=== PATIENT | female | born 1960 | race Caucasian/White ===

== ENCOUNTER 2020-12-15 13:22 | Emergency (ER) | payer OTHER ==
--- NOTE | 2020-12-15 14:50 | XR ---
EXAMINATION TYPE: XR chest 2V DATE OF EXAM: 12/15/2020 COMPARISON: NONE HISTORY: History of COPD with shortness of breath and cough TECHNIQUE: Frontal and lateral views of the chest are obtained. FINDINGS: Right internal jugular Mediport catheter terminates in proximal SVC. There is no focal air space opacity, pleural effusion, or pneumothorax seen. The cardiac silhouette size is within normal limits. Underlying scoliotic curvature. IMPRESSION: No acute cardiopulmonary process.
[2020-12-15] MEDS ORDERED: ACETAMINOPHEN TAB 500 MG TAB PO STA (15:16)
[2020-12-15 15:52] LABS: Appearance,Urine Turbid (Clear); Bacteria,Urine Many /hpf; Bilirubin,Urine Negative (Negative); Blood,Urine Negative (Negative); Budding Yeast,Urine Moderate /hpf; Color,Urine Yellow; Glucose,Urine (UA) Negative (Negative); Ketones,Urine Trace (Negative); Leukocyte Esterase,Urine Moderate (Negative); Mucus,Urine Rare /hpf; Nitrite,Urine Negative (Negative); PH, Urine 7.5 (5.0-8.0); Protein,Urine 1+ (Negative); RBC,Urine 2 /hpf (0-5); Specific Gravity,Urine 1.012 (1.001-1.035); Squamous Epithelial Cell,Urine 2 /hpf (0-4); WBC,Urine 34 /hpf (0-5)
[2020-12-15] MEDS ORDERED: SODIUM CHLORIDE 0.9% 1,000 ML IV STA ×2 (15:58→18:50)
[2020-12-15 16:19] LABS: Anisocytosis Slight; HCT 27.1 % (34.0-46.0); HGB 9.2 gm/dL (11.4-16.0); MCH 34.8 pg (25.0-35.0); MCHC 33.9 g/dL (31.0-37.0); MCV 102.6 fL (80.0-100.0); Macrocytosis Moderate; Mean Platelet Volume 8.3; Platelet Count 128 k/uL (150-450); Poikilocytosis Slight; RBC 2.65 m/uL (3.80-5.40); RDW 18.6 % (11.5-15.5)
[2020-12-15 16:21] LABS: Albumin 3.4 g/dL (3.5-5.0); Calcium 8.7 mg/dL (8.4-10.2); Magnesium 1.6 mg/dL (1.6-2.3); Potassium 3.5 mmol/L (3.5-5.1); Total Bilirubin 0.5 mg/dL (0.2-1.3); Total Protein 6.3 g/dL (6.3-8.2)
[2020-12-15 16:46] LABS: Band Neutrophils % 5 %; Eosinophils # (M) 0.07 k/uL (0-0.7); Lymphocytes # (M) 1.33 k/uL (1.0-4.8); Metamyelocytes # (M) 0.28 k/uL (0); Metamyelocytes % 4 %; Monocytes # (M) 1.05 k/uL (0-1.0); Neutrophils % (M) 56 %; Nucleated Red Blood Cells 0 /100 WBC (0-0); Polychromasia Present; Total Cells Counted 100
[2020-12-15 19:33] VITALS: BP 104/70; PULSE 72; RESP 16; TEMP 98.5
--- NOTE | 2020-12-15 20:15 | ED ---
SOB HPI - General Chief Complaint: Shortness of Breath Stated Complaint: congestion, fever, headache, cough Time Seen by Provider: 12/15/20 15:16 Source: patient Mode of arrival: ambulatory Limitations: no limitations - History of Present Illness Initial Comments: Patient presents with a cough. She has no chest pain. She has no belly pain. She has no back pain. She has no nausea or vomiting. She does have fevers. She has no focal weakness. She has no light headedness. She has no dizziness. She took no medicine for her symptoms. She wasn't doing anything when this began. She denies any sick contacts. - Related Data Home Medications Medication Instructions Recorded Confirmed Omeprazole 40 mg PO DAILY PRN 12/15/20 12/15/20 ondansetron HCL [Zofran] 8 mg PO Q12H PRN 12/15/20 12/15/20 Previous Rx's Medication Instructions Recorded Levofloxacin [Levaquin] 750 mg PO DAILY 1 Days #10 tab 12/15/20 Allergies Allergy/AdvReac Type Severity Reaction Status Date / Time codeine Allergy Itching Verified 12/15/20 15:25 Review of Systems ROS Statement: Those systems with pertinent positive or pertinent negative responses have been documented in the HPI. ROS Other: All systems not noted in ROS Statement are negative. Past Medical History Past Medical History: Cancer, COPD Additional Past Medical History / Comment(s): bladder CA Smoking Status: Current some day smoker Past Alcohol Use History: None Reported Past Drug Use History: None Reported General Exam Limitations: no limitations General appearance: alert, in no apparent distress Head exam: Present: atraumatic, normocephalic, normal inspection Eye exam: Present: normal appearance, PERRL, EOMI. Absent: scleral icterus, conjunctival injection, periorbital swelling ENT exam: Present: normal exam, mucous membranes moist Neck exam: Present: normal inspection. Absent: tenderness, meningismus, lympha denopathy Respiratory exam: Present: normal lung sounds bilaterally. Absent: respiratory distress, wheezes, rales, rhonchi, stridor Cardiovascular Exam: Present: regular rate, normal rhythm, normal heart sounds. Absent: systolic murmur, diastolic murmur, rubs, gallop, clicks GI/Abdominal exam: Present: soft, normal bowel sounds. Absent: distended, tenderness, guarding, rebound, rigid Extremities exam: Present: normal inspection, full ROM, normal capillary refill. Absent: tenderness, pedal edema, joint swelling, calf tenderness Back exam: Present: normal inspection Neurological exam: Present: alert, oriented X3, CN II-XII intact Psychiatric exam: Present: normal affect, normal mood Skin exam: Present: warm, dry, intact, normal color. Absent: rash Course Vital Signs 12/15/20 12/15/20 12/15/20 14:01 15:15 19:04 Temperature 101.4 F H 98.5 F Pulse Rate 98 72 Respiratory 19 22 16 Rate Blood Pressure 91/58 104/70 O2 Sat by Pulse 100 97 Oximetry Medical Decision Making - Medical Decision Making Patient presents with cough. Her chest x-rays negative. Her labs are acceptable. She is given IV fluids. Urinalysis was positive for infection. She received IV antibiotic. I offered the patient admission to the hospital. She does not want to stay. I told her if her symptoms return or worsen she should return to the ER immediately, otherwise she should follow-up with her doctor tomorrow morning. - Lab Data Result diagrams: 12/15/20 Unknown 12/15/20 Unknown Lab Results 12/15/20 12/15/20 12/15/20 Range/Units 15:32 15:32 Unknown WBC 7.0 (3.8-10.6) k/uL RBC 2.65 L (3.80-5.40) m/uL Hgb 9.2 L (11.4-16.0) gm/dL Hct 27.1 L (34.0-46.0) % MCV 102.6 H (80.0-100.0) fL MCH 34.8 (25.0-35.0) pg MCHC 33.9 (31.0-37.0) g/dL RDW 18.6 H (11.5-15.5) % Plt Count 128 L (150-450) k/uL MPV 8.3 Neutrophils % (Manual) 56 % Band Neuts % (Manual) 5 % Lymphocytes % (Manual) 19 % Monocytes % (Manual) 15 % Eosinophils % (Manual) 1 % Metamyelocytes % 4 % Neutrophils # (Manual) 4.20 (1.3-7.7) k/uL Lymphocytes # (Manual) 1.33 (1.0-4.8) k/uL Monocytes # (Manual) 1.05 H (0-1.0) k/uL Eosinophils # (Manual) 0.07 (0-0.7) k/uL Metamyelocytes # (Man) 0.28 H (0) k/uL Nucleated RBCs 0 (0-0) /100 WBC Polychromasia Present Poikilocytosis Slight Anisocytosis Slight Macrocytosis Moderate Sodium (137-145) mmol/L Potassium (3.5-5.1) mmol/L Chloride (98-107) mmol/L Carbon Dioxide (22-30) mmol/L Anion Gap mmol/L BUN (7-17) mg/dL Creatinine (0.52-1.04) mg/dL Est GFR (CKD-EPI)AfAm (>60 ml/min/1.73 sqM) Est GFR (CKD-EPI)NonAf (>60 ml/min/1.73 sqM) Glucose (74-99) mg/dL Calcium (8.4-10.2) mg/dL Magnesium (1.6-2.3) mg/dL Total Bilirubin (0.2-1.3) mg/dL AST (14-36) U/L ALT (4-34) U/L Alkaline Phosphatase (38-126) U/L Total Protein (6.3-8.2) g/dL Albumin (3.5-5.0) g/dL Urine Color Yellow Urine Appearance Turbid H (Clear) Urine pH 7.5 (5.0-8.0) Ur Specific [place] 1.012 (1.001-1.035) Urine Protein 1+ H (Negative) Urine Glucose (UA) Negative (Negative) Urine Ketones Trace H (Negative) Urine Blood Negative (Negative) Urine Nitrite Negative (Negative) Urine Bilirubin Negative (Negative) Urine Urobilinogen 8.0 (<2.0) mg/dL Ur Leukocyte Esterase Moderate H (Negative) Urine RBC 2 (0-5) /hpf Urine WBC 34 H (0-5) /hpf Urine WBC Clumps Many H (None) /hpf Ur Squamous Epith Cells 2 (0-4) /hpf Urine Bacteria Many H (None) /hpf Urine Mucus Rare H (None) /hpf Urine Yeast (Budding) Moderate H (None) /hpf Influenza Type A (PCR) Not Detected (Not Detectd) Influenza Type B (PCR) Not Detected (Not Detectd) RSV (PCR) Not Detected (Not Detectd) SARS-CoV-2 (PCR) Not Detected (Not Detectd) 12/15/20 Range/Units Unknown WBC (3.8-10.6) k/uL RBC (3.80-5.40) m/uL Hgb (11.4-16.0) gm/dL Hct (34.0-46.0) % MCV (80.0-100.0) fL MCH (25.0-35.0) pg MCHC (31.0-37.0) g/dL RDW (11.5-15.5) % Plt Count (150-450) k/uL MPV Neutrophils % (Manual) % Band Neuts % (Manual) % Lymphocytes % (Manual) % Monocytes % (Manual) % Eosinophils % (Manual) % Metamyelocytes % % Neutrophils # (Manual) (1.3-7.7) k/uL Lymphocytes # (Manual) (1.0-4.8) k/uL Monocytes # (Manual) (0-1.0) k/uL Eosinophils # (Manual) (0-0.7) k/uL Metamyelocytes # (Man) (0) k/uL Nucleated RBCs (0-0) /100 WBC Polychromasia Poikilocytosis Anisocytosis Macrocytosis Sodium 128 L (137-145) mmol/L Potassium 3.5 (3.5-5.1) mmol/L Chloride 99 (98-107) mmol/L Carbon Dioxide 21 L (22-30) mmol/L Anion Gap 8 mmol/L BUN 17 (7-17) mg/dL Creatinine 0.91 (0.52-1.04) mg/dL Est GFR (CKD-EPI)AfAm 78 (>60 ml/min/1.73 sqM) Est GFR (CKD-EPI)NonAf 68 (>60 ml/min/1.73 sqM) Glucose 96 (74-99) mg/dL Calcium 8.7 (8.4-10.2) mg/dL Magnesium 1.6 (1.6-2.3) mg/dL Total Bilirubin 0.5 (0.2-1.3) mg/dL AST 18 (14-36) U/L ALT 11 (4-34) U/L Alkaline Phosphatase 89 (38-126) U/L Total Protein 6.3 (6.3-8.2) g/dL Albumin 3.4 L (3.5-5.0) g/dL Urine Color Urine Appearance (Clear) Urine pH (5.0-8.0) Ur Specific [place] (1.001-1.035) Urine Protein (Negative) Urine Glucose (UA) (Negative) Urine Ketones (Negative) Urine Blood (Negative) Urine Nitrite (Negative) Urine Bilirubin (Negative) Urine Urobilinogen (<2.0) mg/dL Ur Leukocyte Esterase (Negative) Urine RBC (0-5) /hpf Urine WBC (0-5) /hpf Urine WBC Clumps (None) /hpf Ur Squamous Epith Cells (0-4) /hpf Urine Bacteria (None) /hpf Urine Mucus (None) /hpf Urine Yeast (Budding) (None) /hpf Influenza Type A (PCR) (Not Detectd) Influenza Type B (PCR) (Not Detectd) RSV (PCR) (Not Detectd) SARS-CoV-2 (PCR) (Not Detectd) 12/15/20 20:13 Twelve-lead EKG shows ventricular rate 94 bpm, normal SD interval and QRS complexes, no ST elevation or depression, interpreted by me as normal sinus rhythm. Disposition Clinical Impression: Kidney infection Disposition: HOME SELF-CARE Condition: Good Prescriptions: Levofloxacin [Levaquin] 750 mg PO DAILY 1 Days #10 tab Is patient prescribed a controlled substance at d/c from ED?: No Referrals: Lor Meier DO [Primary Care Provider] - 1-2 days
== END 2020-12-15 20:40 | disposition home or self-care (01) ==
LOC: EC 13:22
DX: N15.9 Renal tubulo-interstitial disease, unspecified (principal); J44.9 Chronic obstructive pulmonary disease, unspecified; R51.9 Headache, unspecified; R50.9 Fever, unspecified; F17.200 Nicotine dependence, unspecified, uncomplicated; Z20.822 Contact with and (suspected) exposure to COVID-19; Z88.5 Allergy status to narcotic agent
CPT/HCPCS: 99285 ×2; 96365 ×2; 96361 ×2; 96360 ×2; 36415; 93005; 80053; 83735; 85025; 81001; 87636; 71046; J0696

== ENCOUNTER → 2020-12-21 | Outpatient (CLI) | payer OTHER ==
--- NOTE | 2020-12-21 13:33 | CT ---
EXAMINATION TYPE: CT ChestAbdPelvis w con DATE OF EXAM: 12/21/2020 COMPARISON: None HISTORY: 60-year-old female C6 7.9, bladder cancer. TECHNIQUE: Contiguous axial scanning of the chest, abdomen, and pelvis performed with IV Contrast, pa tient injected with 100 ml mL of Isovue 300. Delayed images through the kidneys were obtained. Schuster l/sagittal reconstructions performed. CT DLP: 2070 mGycm Automated exposure control for dose reduction was used. FINDINGS: CHEST: Right anterior chest wall injection port. Catheter tip at the lower right brachiocephalic vein level. Heart normal size without pericardial effusion. Mild LAD coronary artery calcifications are present. Aorta normal caliber with mild atherosclerotic arch calcifications and conventional arch vessel branc marilyn anatomy. No thoracic lymphadenopathy by CT size criteria. Apparent right-sided nipple retraction. No apparent mass by CT. Diagnostic mammogram recommended if r outine screening is not being performed. Mild diffuse bronchial wall thickening. Very mild emphysematous change. Strandy atelectasis or scar i n the lower lungs. Some mild patchy groundglass is also noted in the lower lungs. Otherwise, no consolidation or pleural effusion. ABDOMEN: No focal liver lesion or biliary duct dilatation. Portal venous system is patent. Gallbladder, adrenal glands, spleen, and pancreas within normal limits. Moderate atherosclerotic plaque and calcifications within the infrarenal abdominal aorta and iliac ar teries. There is fusiform infrarenal AAA measuring up to 3.7 cm extending down to the bifurcation. Cr escentic plaque narrows the patent lumen down to 1.8 cm. 2.1 cm cortical cyst posterior left kidney. There is [id number] left and mild right hydronephrosis. Mild left hydroureter. On the delayed k idney images, excreting contrast has entered into the renal collecting system. Contrast has not enter ed into the ureters. There is a right lower quadrant diverting urostomy with an ileal conduit. Possible transition point a t the anastomosis. No dilated small bowel, free fluid, or free air. Moderate stool burden. No pericolic inflammatory change. PELVIS: Surgical material in the pelvis with prior bladder resection and also related to prior resection and reanastomosis along the rectosigmoid junction. BONES: No abnormal fluid collection the pelvis or pelvic lymphadenopathy. Hypertrophic facet arthropathy thr oughout the lumbar spine. Baastrup's disease. Grade 1 retrolisthesis L1-L2 and L2-L3. Grade 1, nearly grade 2 anterolisthesis L4-L5. Possible moderate or severe focal spinal canal stenosis L1-L2 secondary to disc osteophyte complex. Anterior endplate spondylosis lower thoracic spine. No osseous destructive process seen. IMPRESSION: 1. STATUS POST BLADDER RESECTION WITH RIGHT LOWER QUADRANT DIVERTING UROSTOMY WITH ILEAL CONDUIT. THE RE IS [id number] LEFT AND MILD RIGHT HYDRONEPHROSIS AND MILD HYDROURETER WELL. ANASTOMOTIC S TRICTURES NOT EXCLUDED. 2. PREVIOUS RESECTION AND REANASTOMOSIS AT THE RECTOSIGMOID JUNCTION. NO SUSPICIOUS LYMPHADENOPATHY O R MASS TO SUGGEST DISEASE RECURRENCE. 3. APPARENT RIGHT-SIDED NIPPLE RETRACTION WITHOUT APPRECIABLE MASS BY CT. RECOMMEND DIAGNOSTIC MAMMOG RAPHIC WORKUP IF ROUTINE SCREENING IS NOT BEING PERFORMED. 4. DISTAL ABDOMINAL AORTIC AAA MEASURING UP TO 3.7 CM.
== END | disposition home or self-care (01) ==
LOC: RADCTMAIN 09:48
PROVIDERS: ATTEND Internal Medicine Hematology & Oncology
DX: Z03.89 Encounter for observation for other suspected diseases and conditions ruled out (principal); C67.9 Malignant neoplasm of bladder, unspecified; I71.2 Thoracic aortic aneurysm, without rupture
CPT/HCPCS: 82565; 84520; 71260; 74177; 36415; Q9967

== ENCOUNTER → 2021-01-02 | Outpatient (CLI) | payer OTHER ==
--- NOTE | 2021-01-02 15:26 | MR ---
EXAMINATION TYPE: MR brain wo/w con DATE OF EXAM: 01/02/2021 COMPARISON: None HISTORY: Headaches, bladder cancer. CONTRAST: Performed utilizing 8 mL intravenous Gadavist gadolinium contrast. TECHNIQUE: Multiplanar, multiecho imaging on a 3.0 Antoinette magnet is performed through the brain. Stud y is performed within 24 hours of arrival to the hospital. The craniovertebral junction is normal. The pituitary is normal. Diffusion-weighted imaging is performed. No abnormal hyperintensity is present to suggest an acute i ntracranial infarct or acute ischemic change. Signal through the brain appears appropriate for the patient's age. No abnormal enhancement is eviden t. Ventricles and sulci are prominent for the patient age. IMPRESSIONS: 1. No suspicious signal abnormality to suggest metastatic disease or chronic intracranial changes.
== END | disposition home or self-care (01) ==
LOC: RADMRIMAIN 07:24
PROVIDERS: ATTEND Internal Medicine Hematology & Oncology
DX: C67.9 Malignant neoplasm of bladder, unspecified (principal); R51.9 Headache, unspecified
CPT/HCPCS: 70553; A9585

== ENCOUNTER → 2021-04-08 | Outpatient (CLI) | payer OTHER ==
--- NOTE | 2021-04-09 08:09 | MM ---
Reason for exam: clinical finding. History: Patient is postmenopausal and history of other cancer. Family history of breast cancer in maternal grandmother, breast cancer in maternal aunt, and breast cancer in sister. Physical Findings: Nurse did not find any significant physical abnormalities on exam. MG 3D Diag Mammo W/Cad OSMANI Bilateral CC and MLO view(s) were taken. No prior studies available for comparison. The breast tissue is heterogeneously dense. This may lower the sensitivity of mammography. Right anterior chest wall injection port. Anterior upper outer quadrant right breast global asymmetry with underlying palpable nodularity. Rounded density lateral anterior left CC view. These may represent focal dense islands of tissue. These results were verbally communicated with the patient and result sheet given to the patient on 04/08/21. ASSESSMENT: Incomplete: need additional imaging evaluation, BI-RAD 0 RECOMMENDATION: Ultrasound of both breasts. Right 8-12 o'clock and palpable. Left upper outer quadrant.
--- NOTE | 2021-04-09 08:11 | USB ---
Reason for exam: additional evaluation requested from abnormal screening. History: Patient is postmenopausal and history of other cancer. Family history of breast cancer in maternal grandmother, breast cancer in maternal aunt, and breast cancer in sister. US Breast Limited BILAT Technologist: Kimberly Tesfaye Right limited breast ultrasound including focal area of concern, retroareolar and axilla demonstrates a 0.7 x 0.4 x 0.4cm lymph node, palpable, reassess in 6 months and a dense patch at 10 o'clock. Left limited breast ultrasound including focal area of concern, retroareolar and axilla demonstrates a dense patch at 1 o'clock. These results were verbally communicated with the patient and result sheet given to the patient on 04/08/21. ASSESSMENT: Probably benign, BI-RAD 3 RECOMMENDATION: Follow-up diagnostic mammogram of both breasts in 6 months. Ultrasound of the right breast in 6 months. (9 o'clock palpable node)
== END | disposition home or self-care (01) ==
LOC: RADMAMWWP 14:07
PROVIDERS: ATTEND Internal Medicine Hematology & Oncology
DX: R92.8 Other abnormal and inconclusive findings on diagnostic imaging of breast (principal); N63.0 Unspecified lump in unspecified breast
CPT/HCPCS: 77062; 77066

== ENCOUNTER → 2021-05-17 | Outpatient (CLI) | payer OTHER ==
--- NOTE | 2021-05-17 12:21 | CT ---
EXAMINATION TYPE: CT ChestAbdPelvis w con DATE OF EXAM: 05/17/2021 COMPARISON: CT dated 12/21/2020 HISTORY: Follow up for bladder cancer. CT DLP: 1103 mGycm Automated exposure control for dose reduction was used. CONTRAST: CT scan of the chest, abdomen and pelvis is performed with Oral Contrast and with IV Contrast, patien t injected with 100ml mL of Isovue 300. FINDINGS: LUNGS: Scattered bilateral peripheral pulmonary reticulations mainly in the lung bases, appreciated p reviously. Suspected COPD changes. No definite lung nodule identified. Patent central airways. No ple ural effusion. MEDIASTINUM: No gross cardiomegaly. Coronary and arterial atherosclerotic calcifications. No patholog ically enlarged lymph nodes in the chest. No pericardial effusion. OTHER: Persistent right nipple retraction, please correlate clinically. Degenerative changes of the thoracic spine. No aggressive bone lesion. LIVER/GB: No definite hepatic focal lesion. The gallbladder is not distended. PANCREAS: Small slightly atrophic pancreas. SPLEEN: No significant abnormality is seen. ADRENALS: No significant abnormality is seen. KIDNEYS: Previous cystectomy and right lower quadrant ileal conduit. Slightly prominent renal pelvis bilaterally. Stable simple cysts at the upper pole of the left kidney. Unremarkable kidneys otherwise . No gross hydroureter. Suspicious soft tissue lesion is seen in the central portion of the pelvis in separable from the small bowel anteriorly and from the sigmoid colon posteriorly measuring 3.5 x 3.7 x 3.7 cm, highly suspicious for local tumor recurrence/metastasis. BOWEL: Unremarkable stomach and duodenum. Unremarkable remainder of the small bowel with no evidence of bowel obstruction. Unremarkable colonic anastomosis in the pelvis. Fecal loading of the colon. No gross colonic mass however a small lesion cannot be excluded. Nonspecific wall thickening of the rig ht hemicolon. REPRODUCTIVE ORGANS: Previous hysterectomy. No gross adnexal mass. LYMPH NODES: No pathologically enlarged lymph nodes in the abdomen or the pelvis. OSSEOUS STRUCTURES: Severe degenerative changes of the lumbar spine with severe multilevel facet oste oarthropathy. Grade 1 anterolisthesis of L4 over L5 with spinal canal stenosis is seen at that level as well as at L1-2 level. No gross aggressive bone lesion. OTHER: Extensive arterial atherosclerotic calcifications with infrarenal abdominal aortic aneurysm me asuring 3.8 cm. No sizable ascites. IMPRESSION: Newly seen suspicious soft tissue pelvic lesion inseparable from the sigmoid colon and the small mira l as detailed above, likely representing local tumor recurrence or metastatic disease. No other evide nce of metastatic disease seen in the chest, abdomen or the pelvis. Recommend correlation with PET sc an results. Other incidental findings as described above.
== END | disposition home or self-care (01) ==
LOC: RADCTMAIN 09:19
PROVIDERS: ATTEND Internal Medicine Hematology & Oncology
DX: Z03.89 Encounter for observation for other suspected diseases and conditions ruled out (principal); C67.9 Malignant neoplasm of bladder, unspecified
CPT/HCPCS: 71260; 74177; Q9967

== ENCOUNTER → 2021-06-11 | Outpatient (CLI) | payer OTHER ==
--- NOTE | 2021-06-15 06:20 | PE ---
EXAMINATION TYPE: PET CT fusion skull to thigh DATE OF EXAM: 06/11/2021 COMPARISON: Prior body CT May 17, 2021 and older study December 21, 2020 HISTORY: Bladder cancer diagnosed April 2020 with surgery in June and completed chemotherapy in Octobe r. Recent abnormal CT. TECHNIQUE: Following the intravenous administration of 6.96 mCi of F-18 FDG, whole body images are p erformed from the skull base to the midthigh. Images are reviewed on the computer in the coronal, ax ial, and sagittal planes. Reconstructed rotating images are created on independent workstation and r eviewed on the computer. A localization and attenuation correction CT is performed in conjunction w ith the PET scan. Blood glucose level equals 98. SCAN: Initial Scan FINDINGS: SKULL BASE AND NECK: No areas of abnormal hypermetabolic uptake. CHEST, MEDIASTINUM, AND HILAR REGION: No areas of abnormal hypermetabolic uptake. ABDOMEN AND PELVIS: Persistent bilateral hydronephrosis with right-sided ileal conduit and ostomy. Co rresponding to most recent CT is suspicious for recurrent partially calcified soft tissue mass in the central pelvis measuring 4.7 x 3.6 cm axial image 210 with abnormal hypermetabolic uptake, max SUV i s 23.22 on axial image 204. Surrounding surgical sutures and clips are redemonstrated. No additional areas of abnormal hypermetabolic uptake. OSSEOUS STRUCTURES: Slight underlying scoliotic curvature. No definitive abnormal hypermetabolic upta ke. OTHER CT: Moderate to severe three-vessel coronary artery calcification is redemonstrated. Stable rig ht internal jugular Mediport catheter terminates short of the SVC. [place] bladder and uterus are surgically absent. Facet arthropathy lower lumbar spine. IMPRESSION: Abnormal hypermetabolic uptake in the new central pelvic mass correlates with most recent CT and is strongly suspicious for local neoplastic recurrence. No new adenopathy or metastatic disea se clearly seen.
== END | disposition home or self-care (01) ==
LOC: RADPETMAIN 12:40
PROVIDERS: ATTEND Internal Medicine Hematology & Oncology
DX: C67.9 Malignant neoplasm of bladder, unspecified (principal); R19.00 Intra-abdominal and pelvic swelling, mass and lump, unspecified site
CPT/HCPCS: 78815; A9552

== ENCOUNTER 2021-06-30 08:04 | Day surgery (SDC) | payer OTHER ==
[2021-06-29 13:37] VITALS: BMI 30.5
[2021-06-30 08:20] VITALS: RESP 18; TEMP 99.1
[2021-06-30 09:08] VITALS: BP 100/56; PULSE 65
--- NOTE | 2021-06-30 10:35 | IR ---
Fluoroscopic portogram([facility]). HISTORY: Device malfunction. The patient presented to the CVL access with a Mai needle within the port could not be obtained. Pr eliminary fluoroscopy demonstrated the catheter to be intact. 0.3 minutes of fluoroscopy. IMPRESSION: 1. See above.
== END 2021-06-30 09:08 | disposition home or self-care (01) ==
LOC: CATHCVL 08:04
PROVIDERS: ATTEND Radiology Diagnostic Radiology
DX: T85.618A Breakdown (mechanical) of other specified internal prosthetic devices, implants and grafts, initial encounter (principal)
CPT/HCPCS: 36598

== ENCOUNTER 2021-07-05 21:26 | Emergency (ER) | payer OTHER ==
[2021-07-05 22:04] VITALS: BP 99/60; PULSE 88; RESP 18; TEMP 100.1
--- NOTE | 2021-07-05 22:49 | XR ---
EXAMINATION TYPE: XR chest 2V DATE OF EXAM: 07/05/2021 COMPARISON: 12/15/2020 HISTORY: Cough TECHNIQUE: 2 views FINDINGS: Heart and mediastinum are normal. Lungs are clear. Diaphragm is normal. There is right cent ral venous catheter with tip in the superior vena cava. No pleural effusion. Bony thorax is intact. IMPRESSION: No active cardiopulmonary disease. No change.
== END 2021-07-05 23:25 | disposition left against medical advice (07) ==
LOC: EC 21:26
DX: Z53.21 Procedure and treatment not carried out due to patient leaving prior to being seen by health care provider (principal)
CPT/HCPCS: 71046; 87502; 87635; 99499

== ENCOUNTER → 2021-08-18 | Outpatient (CLI) | payer OTHER ==
--- NOTE | 2021-08-18 13:42 | CT ---
EXAMINATION TYPE: CT ChestAbdPelvis w con DATE OF EXAM: 08/18/2021 COMPARISON: PET scan dated 06/11/[address] dated 05/17/2021 HISTORY: Bladder Cancer CT DLP: 1083.3 mGycm Automated exposure control for dose reduction was used. CONTRAST: CT scan of the chest, abdomen and pelvis is performed with Oral Contrast and with IV Contrast, patien t injected with 70 mL of Isovue 300. FINDINGS: LUNGS: Scattered bilateral peripheral pulmonary reticulations mainly in the lung bases, appreciated p reviously. Suspected COPD changes. No definite lung nodule identified. Patent central airways. No ple ural effusion. MEDIASTINUM: No gross cardiomegaly. Coronary and arterial atherosclerotic calcifications. No patholog ically enlarged lymph nodes in the chest. No pericardial effusion. OTHER: A Port-A-Cath is seen with the tip at the inferior aspect of the right innominate vein. Degen erative changes of the thoracic spine. No aggressive bone lesion. LIVER/GB: No definite hepatic focal lesion. The gallbladder is not distended. PANCREAS: Small slightly atrophic pancreas. SPLEEN: No significant abnormality is seen. ADRENALS: No significant abnormality is seen. KIDNEYS: Previous cystectomy and right abdominal ileal conduit. Questionable mild soft tissue thicken ing along the ileal conduit, tumor recurrence can't be excluded. Prominent renal pelvis bilaterally a s well as ureters, progressed compared to the previous. Stable simple cysts at the upper pole of the left kidney. Unremarkable kidneys otherwise. Interval enlargement of the previously seen suspicious s oft tissue lesion in the central portion of the pelvis, inseparable from the small bowel and the cecu m anteriorly and from the sigmoid colon posteriorly measuring 4.7 x 4.9 x 5.6 cm compared to 3.5 x 3. 7 x 3.7 cm. BOWEL: Unremarkable stomach and duodenum. Unremarkable remainder of the small bowel with no evidence of bowel obstruction. Unremarkable colonic anastomosis in the pelvis. Fecal loading of the colon. No gross colonic mass however a small lesion cannot be excluded. Nonspecific wall thickening of the rig ht hemicolon. REPRODUCTIVE ORGANS: Previous hysterectomy. No gross adnexal mass. LYMPH NODES: No pathologically enlarged lymph nodes in the abdomen or the pelvis. OSSEOUS STRUCTURES: Severe degenerative changes of the lumbar spine with severe multilevel facet oste oarthropathy. Grade 1 anterolisthesis of L4 over L5 with spinal canal stenosis is seen at that level as well as at L1-2 level. No gross aggressive bone lesion. OTHER: Extensive arterial atherosclerotic calcifications with infrarenal abdominal aortic aneurysm me asuring 3.8 cm. Peritoneal reflection thickening seen in the pelvis. No sizable ascites. IMPRESSION: Interval progression of the suspicious soft tissue pelvic lesion inseparable from the sigmoid colon, the cecum and the small bowel as detailed above, likely representing progressive local tumor recurren ce or metastatic disease. Progressive pelvic peritoneal reflection thickening, possibly metastatic. No other evidence of metastatic disease seen in the chest, abdomen or the pelvis. Other interval chapa ges and incidental findings as described above.
== END | disposition home or self-care (01) ==
LOC: RADCTMAIN 09:30
PROVIDERS: ATTEND Internal Medicine Hematology & Oncology
DX: Z03.89 Encounter for observation for other suspected diseases and conditions ruled out (principal); C67.9 Malignant neoplasm of bladder, unspecified
CPT/HCPCS: 82565; 84520; 71260; 74177; 36415; Q9967 ×2

== ENCOUNTER 2021-09-22 12:09 | Inpatient (IN) | payer OTHER ==
[2021-09-22] MEDS ORDERED: HYDROmorphone 0.5 MG/0.5 ML SYRINGE IVP STA (15:30)
[2021-09-22] MEDS ORDERED: SODIUM CHLORIDE 0.9% 1,000 ML IV STA ×2 (15:30)
[2021-09-22 15:58] LABS: Anisocytosis Slight; Basophils % (A) 0 %; Eosinophils # (A) 0.1 k/uL (0-0.7); Eosinophils % (A) 1 %; HCT 33.3 % (34.0-46.0); HGB 11.1 gm/dL (11.4-16.0); Lymphocytes # (A) 0.9 k/uL (1.0-4.8); Lymphocytes % (A) 9 %; MCH 32.9 pg (25.0-35.0); MCHC 33.3 g/dL (31.0-37.0); Macrocytosis Slight; Mean Platelet Volume 8.8; Monocytes # (A) 0.5 k/uL (0-1.0); Monocytes % (A) 4 %; Neutrophils # (A) 8.5 k/uL (1.3-7.7); Neutrophils % (A) 84 %; Platelet Count 157 k/uL (150-450); RBC 3.36 m/uL (3.80-5.40); RDW 16.1 % (11.5-15.5); WBC 10.2 k/uL (3.8-10.6)
[2021-09-22 16:08] LABS: ALT 60 U/L (4-34); AST 34 U/L (14-36); African American GFR (CKD) 53 (>60 ml/min/1.73 sqM); Albumin 3.5 g/dL (3.5-5.0); Alkaline Phosphatase 205 U/L (38-126); Amylase <30 U/L (30-110); Anion Gap 11 mmol/L; Blood Urea Nitrogen 22 mg/dL (7-17); Calcium 9.1 mg/dL (8.4-10.2); Carbon Dioxide 19 mmol/L (22-30); Chloride 102 mmol/L (98-107); Glucose 313 mg/dL (74-99); Lipase 20 U/L (23-300); Non-African American GFR(CKD) 46 (>60 ml/min/1.73 sqM); Potassium 3.2 mmol/L (3.5-5.1); Sodium 132 mmol/L (137-145); Total Bilirubin 1.1 mg/dL (0.2-1.3); Total Protein 6.7 g/dL (6.3-8.2)
[2021-09-22 16:09] LABS: Amorphous Sediment,Urine Rare /hpf; Appearance,Urine Turbid (Clear); Bacteria,Urine Many /hpf; Bilirubin,Urine 1+ (Negative); Blood,Urine Small (Negative); Color,Urine Yellow; Glucose,Urine (UA) Negative (Negative); Hyaline Casts,Urine 7 /lpf (0-2); Ketones,Urine Trace (Negative); Leukocyte Esterase,Urine Large (Negative); Mucus,Urine Occasional /hpf; Nitrite,Urine Negative (Negative); Protein,Urine 2+ (Negative); RBC,Urine 36 /hpf (0-5); Specific Gravity,Urine 1.018 (1.001-1.035); WBC,Urine >182 /hpf (0-5)
--- NOTE | 2021-09-22 16:09 | ED ---
General Adult HPI - General Chief complaint: Nausea/Vomiting/Diarrhea Stated complaint: NVD Time Seen by Provider: 09/22/21 15:17 Source: patient, RN notes reviewed, old records reviewed Mode of arrival: ambulatory Limitations: no limitations - History of Present Illness Initial comments: 61-year-old female currently being treated for bladder cancer on chemotherapy presenting for evaluation of nausea vomiting and diarrhea. Patient states that she received chemotherapy about one week ago and this is a typical symptom for her. She's been unable to tolerate any fluids over the past 48 hours with persistent vomiting as well as diarrhea. She denies fever. She does have a urostomy. She reports generalized abdominal pain which is worse in the left lower quadrant. - Related Data Home Medications Medication Instructions Recorded Confirmed Cholecalciferol [Vitamin D3 (25 25 mcg PO DAILY 06/29/21 06/30/21 Mcg = 1000 Iu)] Allergies Allergy/AdvReac Type Severity Reaction Status Date / Time codeine Allergy Itching Verified 09/22/21 13:34 Review of Systems ROS Statement: Those systems with pertinent positive or pertinent negative responses have been documented in the HPI. ROS Other: All systems not noted in ROS Statement are negative. Past Medical History Past Medical History: Cancer, COPD Additional Past Medical History / Comment(s): bladder CA, ileostomy, "something in the abdomen that they are trying to shrink" History of Any Multi-Drug Resistant Organisms: None Reported Past Surgical History: Bladder Surgery Additional Past Surgical History / Comment(s): ileostomy 06/2020 at [facility] in [facility], fatty tumor removed from rt leg, Past Anesthesia/Blood Transfusion Reactions: No Reported Reaction Past Psychological History: No Psychological Hx Reported Smoking Status: Current every day smoker Past Alcohol Use History: Rare Past Drug Use History: None Reported - Past Family History Brother(s) Family Medical History: Cancer Sister(s) Family Medical History: Cancer, Deep Vein Thrombosis (DVT) General Exam Limitations: no limitations General appearance: alert, in no apparent distress Head exam: Present: atraumatic, normocephalic Eye exam: Present: normal appearance, PERRL ENT exam: Present: mucous membranes dry Neck exam: Present: normal inspection. Absent: tenderness, meningismus Respiratory exam: Present: normal lung sounds bilaterally. Absent: respiratory distress, wheezes Cardiovascular Exam: Present: normal rhythm, tachycardia GI/Abdominal exam: Present: soft, distended, tenderness. Absent: guarding, rebound Extremities exam: Present: normal capillary refill Neurological exam: Present: alert, oriented X3, CN II-XII intact. Absent: motor sensory deficit Psychiatric exam: Present: normal affect, normal mood Skin exam: Present: warm, dry, intact. Absent: cyanosis, diaphoretic Course Vital Signs 09/22/21 09/22/21 13:30 15:25 Temperature 97.8 F Pulse Rate 112 H 101 H Respiratory 16 20 Rate Blood Pressure 96/63 103/66 O2 Sat by Pulse 99 99 Oximetry Medical Decision Making - Medical Decision Making 61-year-old female with bladder cancer one-week status post chemotherapy presenting with vomiting and diarrhea. Patient does appear quite dehydrated. S he has normal white blood cell count with left shift. Hemoglobin is 11.1. She has collection White abnormality with a potassium of 3.2 which is replaced. Creatinine is mildly elevated 1.24. Lactic acid-like mildly elevated 2.4. Urinalysis does appear infectious although the patient has history of urostomy. She will be covered with antibiotics awaiting culture. She will be admitted for IV hydration. Consult has been placed to oncology and she will be admitted to [facility] - Lab Data Result diagrams: 09/22/21 15:33 09/22/21 15:33 Lab Results 09/22/21 09/22/21 09/22/21 Range/Units 15:33 15:33 15:33 WBC 10.2 (3.8-10.6) k/uL RBC 3.36 L (3.80-5.40) m/uL Hgb 11.1 L (11.4-16.0) gm/dL Hct 33.3 L (34.0-46.0) % MCV 99.0 (80.0-100.0) fL MCH 32.9 (25.0-35.0) pg MCHC 33.3 (31.0-37.0) g/dL RDW 16.1 H (11.5-15.5) % Plt Count 157 (150-450) k/uL MPV 8.8 Neutrophils % 84 % Lymphocytes % 9 % Monocytes % 4 % Eosinophils % 1 % Basophils % 0 % Neutrophils # 8.5 H (1.3-7.7) k/uL Lymphocytes # 0.9 L (1.0-4.8) k/uL Monocytes # 0.5 (0-1.0) k/uL Eosinophils # 0.1 (0-0.7) k/uL Basophils # 0.0 (0-0.2) k/uL Anisocytosis Slight Macrocytosis Slight PT 11.2 (9.0-12.0) sec INR 1.0 (<1.2) APTT 20.6 L (22.0-30.0) sec Sodium (137-145) mmol/L Potassium (3.5-5.1) mmol/L Chloride (98-107) mmol/L Carbon Dioxide (22-30) mmol/L Anion Gap mmol/L BUN (7-17) mg/dL Creatinine (0.52-1.04) mg/dL Est GFR (CKD-EPI)AfAm (>60 ml/min/1.73 sqM) Est GFR (CKD-EPI)NonAf (>60 ml/min/1.73 sqM) Glucose (74-99) mg/dL Plasma Lactic Acid Amaury (0.7-2.0) mmol/L Calcium (8.4-10.2) mg/dL Total Bilirubin (0.2-1.3) mg/dL AST (14-36) U/L ALT (4-34) U/L Alkaline Phosphatase (38-126) U/L Total Protein (6.3-8.2) g/dL Albumin (3.5-5.0) g/dL Amylase (30-110) U/L Lipase (23-300) U/L Urine Color Yellow Urine Appearance Turbid H (Clear) Urine pH 6.0 (5.0-8.0) Ur Specific [place] 1.018 (1.001-1.035) Urine Protein 2+ H (Negative) Urine Glucose (UA) Negative (Negative) Urine Ketones Trace H (Negative) Urine Blood Small H (Negative) Urine Nitrite Negative (Negative) Urine Bilirubin 1+ H (Negative) Urine Urobilinogen 6.0 (<2.0) mg/dL Ur Leukocyte Esterase Large H (Negative) Urine RBC 36 H (0-5) /hpf Urine WBC >182 H (0-5) /hpf Amorphous Sediment Rare H (None) /hpf Urine Bacteria Many H (None) /hpf Hyaline Casts 7 H (0-2) /lpf Urine Mucus Occasional H (None) /hpf 09/22/21 09/22/21 Range/Units 15:33 15:33 WBC (3.8-10.6) k/uL RBC (3.80-5.40) m/uL Hgb (11.4-16.0) gm/dL Hct (34.0-46.0) % MCV (80.0-100.0) fL MCH (25.0-35.0) pg MCHC (31.0-37.0) g/dL RDW (11.5-15.5) % Plt Count (150-450) k/uL MPV Neutrophils % % Lymphocytes % % Monocytes % % Eosinophils % % Basophils % % Neutrophils # (1.3-7.7) k/uL Lymphocytes # (1.0-4.8) k/uL Monocytes # (0-1.0) k/uL Eosinophils # (0-0.7) k/uL Basophils # (0-0.2) k/uL Anisocytosis Macrocytosis PT (9.0-12.0) sec INR (<1.2) APTT (22.0-30.0) sec Sodium 132 L (137-145) mmol/L Potassium 3.2 L (3.5-5.1) mmol/L Chloride 102 (98-107) mmol/L Carbon Dioxide 19 L (22-30) mmol/L Anion Gap 11 mmol/L BUN 22 H (7-17) mg/dL Creatinine 1.25 H (0.52-1.04) mg/dL Est GFR (CKD-EPI)AfAm 53 (>60 ml/min/1.73 sqM) Est GFR (CKD-EPI)NonAf 46 (>60 ml/min/1.73 sqM) Glucose 313 H (74-99) mg/dL Plasma Lactic Acid Amaury 2.4 H* (0.7-2.0) mmol/L Calcium 9.1 (8.4-10.2) mg/dL Total Bilirubin 1.1 (0.2-1.3) mg/dL AST 34 (14-36) U/L ALT 60 H (4-34) U/L Alkaline Phosphatase 205 H (38-126) U/L Total Protein 6.7 (6.3-8.2) g/dL Albumin 3.5 (3.5-5.0) g/dL Amylase <30 L (30-110) U/L Lipase 20 L (23-300) U/L Urine Color Urine Appearance (Clear) Urine pH (5.0-8.0) Ur Specific [place] (1.001-1.035) Urine Protein (Negative) Urine Glucose (UA) (Negative) Urine Ketones (Negative) Urine Blood (Negative) Urine Nitrite (Negative) Urine Bilirubin (Negative) Urine Urobilinogen (<2.0) mg/dL Ur Leukocyte Esterase (Negative) Urine RBC (0-5) /hpf Urine WBC (0-5) /hpf Amorphous Sediment (None) /hpf Urine Bacteria (None) /hpf Hyaline Casts (0-2) /lpf Urine Mucus (None) /hpf Disposition Clinical Impression: Dehydration, Bladder cancer, UTI (urinary tract infection) Disposition: ADMITTED IP TO THIS [facility] Condition: Stable Is patient prescribed a controlled substance at d/c from ED?: No Referrals: None,Stated [Primary Care Provider] - 1-2 days Time of Disposition: 16:44
[2021-09-22 16:13] LABS: Prothrombin Time 11.2 sec (9.0-12.0)
[2021-09-22 16:18] LABS: Partial Thromboplastin Time 20.6 sec (22.0-30.0)
[2021-09-22] MEDS ORDERED: cefTRIAXone IN SWFI 1,000 MG/10 ML SYRINGE IVP STA (16:25)
[2021-09-22] MEDS ORDERED: ACETAMINOPHEN TAB 325 MG TAB PO PRN (16:39)
[2021-09-22] MEDS ORDERED: NALOXONE 0.4 MG/ML 1 ML VIAL IV PRN (16:39)
[2021-09-22] MEDS ORDERED: HYDROmorphone 0.5 MG/0.5 ML SYRINGE IVP PRN (16:39)
[2021-09-22] MEDS: SODIUM CHLORIDE 0.9% 1,000 ML IV SCH (16:58)
[2021-09-22] MEDS: POTASSIUM CHLORIDE 10 MEQ in WATER FOR INJECTION 1 100ML.BAG IVPB SCH ×4 (17:32→22:14)
[2021-09-22] MEDS ORDERED: SODIUM CHLORIDE 0.9% 500 ML 500 ML IV ONE (19:03)
[2021-09-22 19:46] LABS: Glucose,Whole Blood 268 mg/dL (70-110)
[2021-09-22] MEDS: INSULIN ASPART (NovoLOG) 100 UNIT/ML VIAL SQ SCH (20:43)
[2021-09-23] MEDS: SODIUM CHLORIDE 0.9% 1,000 ML IV SCH ×2 (05:49→11:42)
[2021-09-23 07:22] LABS: Glucose,Whole Blood 225 mg/dL (70-110)
[2021-09-23] MEDS: ONDANSETRON 4 MG/2 ML VIAL IVP PRN ×2 (07:52→17:57)
[2021-09-23] MEDS: CHOLECALCIFEROL 25 MCG (1000 IU) TABLET PO SCH (08:01)
[2021-09-23] MEDS: PANTOPRAZOLE 40 MG TABLET PO SCH (08:01)
[2021-09-23] MEDS: INSULIN ASPART (NovoLOG) 100 UNIT/ML VIAL SQ SCH ×6 (08:02→20:34)
[2021-09-23] MEDS ORDERED: DEXTROSE 50% SYRINGE 50 ML IVP PRN ×2 (09:18)
[2021-09-23 10:37] LABS: ALT 44 U/L (4-34); AST 27 U/L (14-36); African American GFR (CKD) 63 (>60 ml/min/1.73 sqM); Albumin 2.5 g/dL (3.5-5.0); Albumin/Globulin Ratio 0.9; Alkaline Phosphatase 162 U/L (38-126); Anion Gap 5 mmol/L; Blood Urea Nitrogen 19 mg/dL (7-17); Calcium 7.6 mg/dL (8.4-10.2); Carbon Dioxide 22 mmol/L (22-30); Chloride 111 mmol/L (98-107); Globulin 2.9 g/dL; Glucose 192 mg/dL (74-99); Magnesium 1.8 mg/dL (1.6-2.3); Non-African American GFR(CKD) 54 (>60 ml/min/1.73 sqM); Potassium 3.7 mmol/L (3.5-5.1); Sodium 138 mmol/L (137-145); Total Bilirubin 0.8 mg/dL (0.2-1.3); Total Protein 5.4 g/dL (6.3-8.2)
[2021-09-23 12:27] LABS: Glucose,Whole Blood 285 mg/dL (70-110)
--- NOTE | 2021-09-23 13:45 | P.HPIM ---
History of Present Illness H&P Date: 09/23/21 This is a 61-year-old female with history significant for COPD, bladder cancer with surgery currently undergoing chemotherapy, urostomy, daily smoker. Patient reports the ER with complaints of nausea vomiting diarrhea, last received chemotherapy about 1 week ago. Patient also reports generalized abdominal pain left lower quadrant, decreased appetite. Admission white count is 10.2, hemoglobin 11.1, sodium 132, potassium 3.2, BUN 22, creatinine 1.25. Patient was given a 2 L normal saline fluid bolus in the EC and started on normal saline at 75 ccs per hour. She also had elevated lactic acid, mild elevated liver enzymes. There is concern for UTI, and culture is pending. Patient also received empiric antibiotic coverage with ceftriaxone. Oncology has been consulted. REVIEW OF SYSTEMS: CONSTITUTIONAL: No fever, no malaise, reports fatigue. HEENT: No recent visual problems or hearing problems. Denied any sore throat. CARDIOVASCULAR: No chest pain, orthopnea, PND, no palpitations, no syncope. PULMONARY: No shortness of breath, no cough, no hemoptysis. GASTROINTESTINAL: Reports diarrhea, nausea, vomiting, no abdominal pain. N/V has resolved. NEUROLOGICAL: No headaches, no weakness, no numbness. HEMATOLOGICAL: Denies any bleeding or petechiae. GENITOURINARY: Denies any burning micturition, frequency, or urgency. Has urostomy right quadrant. Reports dark cloudy urine with sediment. MUSCULOSKELETAL/RHEUMATOLOGICAL: Denies any joint pain, swelling, or any muscle pain. ENDOCRINE: Denies any polyuria or polydipsia. The rest of the 14-point review of systems is negative. PHYSICAL EXAMINATION: GENERAL: The patient is alert and oriented x3, not in any acute distress. Well developed, well nourished. HEENT: Pupils are round and equally reacting to light. EOMI. No scleral icterus. No conjunctival pallor. Normocephalic, atraumatic. No pharyngeal erythema. No thyromegaly. CARDIOVASCULAR: S1 and S2 present. No murmurs, rubs, or gallops. PULMONARY: Chest is clear to auscultation, no wheezing or crackles. ABDOMEN: Soft, nontender, nondistended, normoactive bowel sounds. No palpable organomegaly. Urostomy present with light liz urine. MUSCULOSKELETAL: No joint swelling or deformity. EXTREMITIES: No cyanosis, clubbing, or pedal edema. NEUROLOGICAL: Gross neurological examination did not reveal any focal deficits. SKIN: No rashes. Assessment and plan Assessment Nausea, Vomiting, Diarrhea possible viral gastroenteritis Hypovolemic Hyponatremia secondary to vomiting, diarrhea Acute kidney injury mostly likely prerenal Nonanion gap metabolic acidosis Elevated transaminases Hyperglycemia A1C currently pending Bladder cancer with ileostomy currently undergoing chemotherapy History COPD GI Prophylaxis DVT Prophylaxis Full Code Plan Continue with normal saline hydration Replace electrolytes as needed Continue empiric antibiotic coverage, urine culture pending Repeat labs Blood glucose monitoring and insulin Oncology consultation The impression and plan of care has been dictated by Sanam Chacko Nurse Practitioner as directed. Dr. Bella MD I have performed a history and physical examination and medical decision making of this patient, discussed the same with the dictator, and agree with the dictators assessment and plan as written, documented as a scribe. Based on total visit time, I have performed more than 50% of this visit. Past Medical History Past Medical History: Cancer, COPD Additional Past Medical History / Comment(s): bladder CA, ileostomy, "something in the abdomen that they are trying to shrink" History of Any Multi-Drug Resistant Organisms: None Reported Past Surgical History: Bladder Surgery Additional Past Surgical History / Comment(s): ileostomy 06/2020 at [facility] in [facility], fatty tumor removed from rt leg, Past Anesthesia/Blood Transfusion Reactions: No Reported Reaction Past Psychological History: No Psychological Hx Reported Smoking Status: Current every day smoker Past Alcohol Use History: Rare Additional Past Alcohol Use History / Comment(s): smokes 1 PPD, started smoking age 6 or 7 Past Drug Use History: None Reported Additional Drug Use History / Comment(s): CBD gummies - Past Family History Brother(s) Family Medical History: Cancer Sister(s) Family Medical History: Cancer, Deep Vein Thrombosis (DVT) Medications and Allergies Home Medications Medication Instructions Recorded Confirmed Type Cholecalciferol [Vitamin D3 (25 25 mcg PO DAILY 06/29/21 09/22/21 History Mcg = 1000 Iu)] Omeprazole [PriLOSEC] 20 mg PO DAILY 09/22/21 09/22/21 History Ondansetron [Zofran] 4 mg PO Q8HR PRN 09/22/21 09/22/21 History Allergies Allergy/AdvReac Type Severity Reaction Status Date / Time codeine Allergy Itching Verified 09/22/21 18:17 Physical Exam Vitals: Vital Signs Temp Pulse Pulse Resp BP BP Pulse Ox 09/23/21 07:53 98.6 F 96 17 90/53 95 09/23/21 01:35 98.0 F 95 18 90/55 95 09/22/21 19:43 97.8 F 89 16 94/60 100 09/22/21 19:11 87 16 88/54 98 09/22/21 18:47 87 16 96 09/22/21 16:55 67 18 91/54 97 09/22/21 15:25 101 H 20 103/66 99 09/22/21 13:30 97.8 F 112 H 16 96/63 99 Intake and Output 09/22/21 09/23/21 09/23/21 22:59 06:59 14:59 Output Total 300 Balance -300 Output: Urine 300 Other: Weight 76.657 kg Results CBC & Chem 7: 09/22/21 15:33 09/23/21 06:56 Labs: Abnormal Lab Results - Last 24 Hours (Table) 09/22/21 09/22/21 09/22/21 Range/Units 15:33 15:33 15:33 RBC 3.36 L (3.80-5.40) m/uL Hgb 11.1 L (11.4-16.0) gm/dL Hct 33.3 L (34.0-46.0) % RDW 16.1 H (11.5-15.5) % Neutrophils # 8.5 H (1.3-7.7) k/uL Lymphocytes # 0.9 L (1.0-4.8) k/uL APTT 20.6 L (22.0-30.0) sec Sodium (137-145) mmol/L Potassium (3.5-5.1) mmol/L Carbon Dioxide (22-30) mmol/L BUN (7-17) mg/dL Creatinine (0.52-1.04) mg/dL Glucose (74-99) mg/dL POC Glucose (mg/dL) (70-110) mg/dL Plasma Lactic Acid Amaury (0.7-2.0) mmol/L ALT (4-34) U/L Alkaline Phosphatase (38-126) U/L Amylase (30-110) U/L Lipase (23-300) U/L Urine Appearance Turbid H (Clear) Urine Protein 2+ H (Negative) Urine Ketones Trace H (Negative) Urine Blood Small H (Negative) Urine Bilirubin 1+ H (Negative) Ur Leukocyte Esterase Large H (Negative) Urine RBC 36 H (0-5) /hpf Urine WBC >182 H (0-5) /hpf Amorphous Sediment Rare H (None) /hpf Urine Bacteria Many H (None) /hpf Hyaline Casts 7 H (0-2) /lpf Urine Mucus Occasional H (None) /hpf 09/22/21 09/22/21 09/22/21 Range/Units 15:33 15:33 19:45 RBC (3.80-5.40) m/uL Hgb (11.4-16.0) gm/dL Hct (34.0-46.0) % RDW (11.5-15.5) % Neutrophils # (1.3-7.7) k/uL Lymphocytes # (1.0-4.8) k/uL APTT (22.0-30.0) sec Sodium 132 L (137-145) mmol/L Potassium 3.2 L (3.5-5.1) mmol/L Carbon Dioxide 19 L (22-30) mmol/L BUN 22 H (7-17) mg/dL Creatinine 1.25 H (0.52-1.04) mg/dL Glucose 313 H (74-99) mg/dL POC Glucose (mg/dL) 268 H (70-110) mg/dL Plasma Lactic Acid Amaury 2.4 H* (0.7-2.0) mmol/L ALT 60 H (4-34) U/L Alkaline Phosphatase 205 H (38-126) U/L Amylase <30 L (30-110) U/L Lipase 20 L (23-300) U/L Urine Appearance (Clear) Urine Protein (Negative) Urine Ketones (Negative) Urine Blood (Negative) Urine Bilirubin (Negative) Ur Leukocyte Esterase (Negative) Urine RBC (0-5) /hpf Urine WBC (0-5) /hpf Amorphous Sediment (None) /hpf Urine Bacteria (None) /hpf Hyaline Casts (0-2) /lpf Urine Mucus (None) /hpf 09/23/21 Range/Units 07:21 RBC (3.80-5.40) m/uL Hgb (11.4-16.0) gm/dL Hct (34.0-46.0) % RDW (11.5-15.5) % Neutrophils # (1.3-7.7) k/uL Lymphocytes # (1.0-4.8) k/uL APTT (22.0-30.0) sec Sodium (137-145) mmol/L Potassium (3.5-5.1) mmol/L Carbon Dioxide (22-30) mmol/L BUN (7-17) mg/dL Creatinine (0.52-1.04) mg/dL Glucose (74-99) mg/dL POC Glucose (mg/dL) 225 H (70-110) mg/dL Plasma Lactic Acid Amaury (0.7-2.0) mmol/L ALT (4-34) U/L Alkaline Phosphatase (38-126) U/L Amylase (30-110) U/L Lipase (23-300) U/L Urine Appearance (Clear) Urine Protein (Negative) Urine Ketones (Negative) Urine Blood (Negative) Urine Bilirubin (Negative) Ur Leukocyte Esterase (Negative) Urine RBC (0-5) /hpf Urine WBC (0-5) /hpf Amorphous Sediment (None) /hpf Urine Bacteria (None) /hpf Hyaline Casts (0-2) /lpf Urine Mucus (None) /hpf Microbiology - Last 24 Hours (Table) 09/22/21 15:33 Urine Culture - Preliminary Urine,Voided Assessment and Plan Time with Patient: Less than 30
[2021-09-23] MEDS: MAGNESIUM SULFATE-D5W PMX 1 GM in DEXTROSE/WATER 1 100ML.BAG IVPB SCH ×2 (14:15→15:37)
--- NOTE | 2021-09-23 16:32 | XR ---
EXAMINATION TYPE: XR abdomen complete w decub DATE OF EXAM: 09/23/2021 COMPARISON: Correlation CT 08/18/2021 HISTORY: 61-year-old female progressive left lower quadrant pain TECHNIQUE: Supine, upright, and left side down lateral decubitus views of the abdomen are obtained. FINDINGS: No evidence for free intraperitoneal air. Scattered gas in colon is present without abnormal dilatation. Mild stool in the left side of the col on. Surgical material with clips along both sides of the pelvis and a staple line at the distal sigmo id. Moderate focal stool distal rectum extending up to 7.0 cm wide. A couple borderline caliber small bowel loops in the left side of the abdomen measuring up to 2.8 cm. No dilated small bowel or differ ential air-fluid levels. Levoconvex scoliosis lumbar spine. IMPRESSION: 1. Gassy colon. Mild stool in the descending colon and more moderate stool in the rectum where some s urgical material is noted. 2. A couple nonspecific borderline distended small bowel loops in the left side of the abdomen. Overa ll bowel gas pattern is nonobstructive. No free air.
[2021-09-23 17:37] LABS: Glucose,Whole Blood 265 mg/dL (70-110)
[2021-09-23 20:29] LABS: Glucose,Whole Blood 229 mg/dL (70-110)
[2021-09-23] MEDS: HEPARIN SODIUM,PORCINE/PF 5,000 UNIT/0.5 ML SYRINGE SQ SCH (20:34)
[2021-09-24] MEDS: SODIUM CHLORIDE 0.9% 1,000 ML IV SCH ×3 (02:37→23:25)
[2021-09-24 07:10] LABS: Glucose,Whole Blood 206 mg/dL (70-110)
[2021-09-24 09:00] LABS: Magnesium 2.2 mg/dL (1.5-2.4)
[2021-09-24] MEDS: INSULIN ASPART (NovoLOG) 100 UNIT/ML VIAL SQ SCH ×7 (09:01→21:12)
[2021-09-24] MEDS: INSULIN DETEMIR (LEVEMIR) 100 UNIT/ML SYR SQ SCH ×2 (09:02→21:11)
[2021-09-24] MEDS: HEPARIN SODIUM,PORCINE/PF 5,000 UNIT/0.5 ML SYRINGE SQ SCH (09:02)
[2021-09-24] MEDS: CHOLECALCIFEROL 25 MCG (1000 IU) TABLET PO SCH (09:03)
[2021-09-24] MEDS: PANTOPRAZOLE 40 MG TABLET PO SCH (09:03)
[2021-09-24 09:45] LABS: African American GFR (CKD) 55.7 (60.0-200.0); Albumin 2.5 g/dL (3.8-4.9); Albumin/Globulin Ratio 0.96 (1.60-3.17); Anion Gap 9.9 mmol/L (10.00-18.00); BUN/Creat Ratio 12.17 Ratio (12.00-20.00); Blood Urea Nitrogen 14.6 mg/dL (9.0-27.0); Calcium 7.3 mg/dL (8.7-10.3); Carbon Dioxide 19.1 mmol/L (20.0-27.5); Globulin 2.6 g/dL (1.6-3.3); Non-African American GFR(CKD) 48.1 (60.0-200.0); Potassium 2.7 mmol/L (3.5-5.5); Total Bilirubin 0.6 mg/dL (0.30-1.20); Total Protein 5.1 g/dL (6.2-8.2)
[2021-09-24] MEDS ORDERED: Potassium Replacement Protocol 1 EACH MISC MISCELLANE PRN (10:47)
[2021-09-24 10:59] LABS: Basophils # (A) 0.08 X 10*3/uL (0.00-0.10); Basophils % (A) 1.6 %; Eosinophils # (A) 0.02 X 10*3/uL (0.04-0.35); Eosinophils % (A) 0.4 %; HCT 26.1 % (37.2-46.3); HGB 8.4 g/dL (12.0-15.0); Immature Grans, Automated 3.3 %; Lymphocytes # (A) 0.81 X 10*3/uL (0.90-5.00); Lymphocytes % (A) 15.9 %; MCH 31.9 pg (27.0-32.0); MCHC 32.2 g/dL (32.0-37.0); MCV 99.2 fL (80.0-97.0); Mean Platelet Volume 12.1 fL (9.5-12.2); Monocytes # (A) 0.57 X 10*3/uL (0.20-1.00); Monocytes % (A) 11.2 %; NRBC Per 100 WBC 0.4 /100 WBCS (0.0-0.0); Neutrophils # (A) 3.44 X 10*3/uL (1.80-7.70); Neutrophils % (A) 67.6 %; Platelet Count 97 X 10*3/uL (140-440); RBC 2.63 X 10*6/uL (4.10-5.20); RDW 17.1 % (11.5-14.5); WBC 5.09 X 10*3/uL (4.50-10.00)
[2021-09-24 11:00] LABS: RBC Morphology NORMAL
[2021-09-24] MEDS: POTASSIUM CHLORIDE 20 MEQ in WATER FOR INJECTION 1 100ML.BAG IVPB SCH ×2 (11:14→15:11)
[2021-09-24 11:36] LABS: Glucose,Whole Blood 271 mg/dL (70-110)
[2021-09-24] MEDS ORDERED: POTASSIUM CHLORIDE ER 20 MEQ TAB.ER PO STA (14:46)
--- NOTE | 2021-09-24 14:53 | P.PN ---
Subjective Progress Note Date: 09/24/21 This is a 61-year-old female with history significant for COPD, bladder cancer with surgery currently undergoing chemotherapy, urostomy, daily smoker. Patient reports the ER with complaints of nausea vomiting diarrhea, last received chemotherapy about 1 week ago. Patient also reports generalized abdominal pain left lower quadrant, decreased appetite. Admission white count is 10.2, hemoglobin 11.1, sodium 132, potassium 3.2, BUN 22, creatinine 1.25. Patient was given a 2 L normal saline fluid bolus in the EC and started on normal saline at 75 ccs per hour. She also had elevated lactic acid, mild elevated liver enzymes. There is concern for UTI, and culture is pending. Patient also received empiric antibiotic coverage with ceftriaxone. Oncology has been consulted. 09/24/2021 Patient evaluated today resting in bed. She continues with abdominal discomfort, and poor oral intake. Potassium today is 2.7 which she will be replaced. We did try with IV potassium and she did not tolerate oral supplementation will be given. Her hemoglobin today is 8.4 which has dropped from 11.1 and also platelet count has dropped to 97. Subcu heparin has been discontinued and we will repeat CBC in the morning. Patient does have urostomy with known history of uterine cancer and presents with concern for acute UTI and urine culture is currently pending which shows preliminary as gram negative bacilli. We plan to keep patient overnight on empiric antibiotic coverage. Blood glucose in the mid 200s and A1C is 6.2 which patient does not have history of diabetes. A1C of 6.2 is consistent with prediabetes and will continue with blood glucose monitoring and insulin. Liver enzmyes today stable ALT 45, alk phos 134. She did have abdomen xray completed yesterday showing moderate stool in rectum and overall nono bstructive bowel gas. Patient did have small BM today. Review of Systems Constitutional: Reports fatigue, denies fever. Cardio vascular: denied any chest pain, palpitations Gastrointestinal: denied any vomiting, diarrhea, reports nausea, abominal discomfort Pulmonary: Denied any shortness of breath cough Neurologic denied any new focal deficits All inpatient medications were reviewed and appropriate changes in these medications as dictated in the interval history and assessment and plan. PHYSICAL EXAMINATION: GENERAL: The patient is alert and oriented x3, not in any acute distress. Well developed, well nourished. HEENT: Pupils are round and equally reacting to light. EOMI. No scleral icterus. No conjunctival pallor. Normocephalic, atraumatic. No pharyngeal erythema. No thyromegaly. CARDIOVASCULAR: S1 and S2 present. No murmurs, rubs, or gallops. PULMONARY: Chest is clear to auscultation, no wheezing or crackles. ABDOMEN: Soft, tender, nondistended, normoactive bowel sounds. No palpable organomegaly. Urostomy present with light liz urine. MUSCULOSKELETAL: No joint swelling or deformity. EXTREMITIES: No cyanosis, clubbing, or pedal edema. NEUROLOGICAL: Gross neurological examination did not reveal any focal deficits. SKIN: No rashes. Assessment and plan Assessment Nausea, Vomiting, Diarrhea Constipation with moderate stool in rectum. Acute UTI with urine culture pending on empiric antibiotic coverage Hypovolemic Hyponatremia secondary to vomiting, diarrhea, resolved with hydration Acute kidney injury mostly likely prerenal Nonanion gap metabolic acidosis Elevated transaminases Hyperglycemia A1C 6.2 consistent with prediabetes Bladder cancer with ileostomy currently undergoing chemotherapy History COPD Daily smoker GI Prophylaxis DVT Prophylaxis Full Code Plan Decrease IV fluids Replace electrolytes as needed Continue empiric antibiotic coverage, urine culture pending Repeat potassium later today Stool cultures are currently pending Blood glucose monitoring and insulin Oncology consultation The impression and plan of care has been dictated by Sanam Chacko, Nurse Practitioner as directed. Dr. Bella MD I have performed a history and physical examination and medical decision making of this patient, discussed the same with the dictator, and agree with the dictators assessment and plan as written, documented as a scribe. Based on total visit time, I have performed more than 50% Objective - Vital Signs Vital signs: Vital Signs Temp 98.1 F 09/24/21 14:00 Pulse 93 09/24/21 14:00 Resp 16 09/24/21 14:00 BP 98/59 09/24/21 14:00 Pulse Ox 97 09/24/21 14:00 FiO2 Intake & Output 09/23/21 09/24/21 09/24/21 18:59 06:59 18:59 Intake Total 118 358 Output Total 525 300 Balance -407 -300 358 Intake: Oral 118 358 Output: Urine 525 300 Other: Voiding Method Ileal Conduit (Right) Ileal Conduit (Right) Ileal Conduit (Right) - Labs CBC & Chem 7: 09/24/21 05:54 09/24/21 05:54 Labs: Abnormal Lab Results - Last 24 Hours (Table) 09/23/21 09/23/21 09/24/21 Range/Units 17:36 20:29 05:54 RBC 2.63 L (4.10-5.20) X 10*6/uL Hgb 8.4 L (12.0-15.0) g/dL Hct 26.1 L (37.2-46.3) % MCV 99.2 H (80.0-97.0) fL RDW 17.1 H (11.5-14.5) % Plt Count 97 L (140-440) X 10*3/uL Plt Count Comment DECREASED A Absolute Nucleated RBC 0.02 H (0.00-0.00) X 10*3/uL Immature Gran # 0.17 H (0.00-0.04) X 10*3/uL Lymphocytes # 0.81 L (0.90-5.00) X 10*3/uL Eosinophils # 0.02 L (0.04-0.35) X 10*3/uL NRBC/100 WBC Diff 0.4 H (0.0-0.0) /100 WBCS Potassium (3.5-5.5) mmol/L Carbon Dioxide (20.0-27.5) mmol/L Anion Gap (10.00-18.00) mmol/L Est GFR (CKD-EPI)AfAm (60.0-200.0) Est GFR (CKD-EPI)NonAf (60.0-200.0) Glucose (70-110) mg/dL POC Glucose (mg/dL) 265 H 229 H (70-110) mg/dL Calcium (8.7-10.3) mg/dL ALT (8-44) U/L Alkaline Phosphatase (41-126) U/L Total Protein (6.2-8.2) g/dL Albumin (3.8-4.9) g/dL Albumin/Globulin Ratio (1.60-3.17) g/dL 09/24/21 09/24/21 09/24/21 Range/Units 05:54 07:09 11:35 RBC (4.10-5.20) X 10*6/uL Hgb (12.0-15.0) g/dL Hct (37.2-46.3) % MCV (80.0-97.0) fL RDW (11.5-14.5) % Plt Count (140-440) X 10*3/uL Plt Count Comment Absolute Nucleated RBC (0.00-0.00) X 10*3/uL Immature Gran # (0.00-0.04) X 10*3/uL Lymphocytes # (0.90-5.00) X 10*3/uL Eosinophils # (0.04-0.35) X 10*3/uL NRBC/100 WBC Diff (0.0-0.0) /100 WBCS Potassium 2.7 L* (3.5-5.5) mmol/L Carbon Dioxide 19.1 L (20.0-27.5) mmol/L Anion Gap 9.90 L (10.00-18.00) mmol/L Est GFR (CKD-EPI)AfAm 55.7 L (60.0-200.0) Est GFR (CKD-EPI)NonAf 48.1 L (60.0-200.0) Glucose 195 H (70-110) mg/dL POC Glucose (mg/dL) 206 H 271 H (70-110) mg/dL Calcium 7.3 L (8.7-10.3) mg/dL ALT 45 H (8-44) U/L Alkaline Phosphatase 134 H (41-126) U/L Total Protein 5.1 L (6.2-8.2) g/dL Albumin 2.5 L (3.8-4.9) g/dL Albumin/Globulin Ratio 0.96 L (1.60-3.17) g/dL Microbiology - Last 24 Hours (Table) 09/22/21 15:33 Urine Culture - Preliminary Urine,Voided Gram Neg Bacilli Assessment and Plan Time with Patient: Less than 30
[2021-09-24] MEDS ORDERED: POTASSIUM CHLORIDE ER 20 MEQ TAB.ER PO ONE (16:00)
[2021-09-24 16:29] LABS: Glucose,Whole Blood 265 mg/dL (70-110)
--- NOTE | 2021-09-24 17:54 | P.CONS ---
History of Present Illness - Reason for Consult Consult date: 09/23/21 bladder carcinoma Requesting physician: Sarmad Sutton - Chief Complaint N,V,D - History of Present Illness Patient is status post her second dose of padcev-monoclonal antibody/cytotoxic treatment for metastatic bladder. Patient tolerated first cycle fairly well. S he stated that after the second cycle, 3-4 days later she started having nausea, vomiting and diarrhea. She is here because her symptoms persisted. UA suspicious for UTI, BUN and creatinine slightly elevated suggestive of some dehydration. She's been started on antibiotics, receiving IV fluids and supportive medications. She had some mild nausea this a.m., no vomiting since admission, no diarrhea today. She has mild oral irritation, denies chest pain, palpitations, cough, she does have some left lower quadrant discomfort that is new for her Malignancy Hx:Pt was diagnosed with muscle invasive bladder cancer in April,. She was evaluated at [facility] in [place], felt that because of invasion of colon and vagina, proceed with surgery first instead of neoadjuvant chemotherapy. 07/01/2020 she underwent anterior exenteration with ileal loop diversion and sigmoid colon resection, pathology revealed pT4bNo disease. She recovered from surgery well and received adjuvant 4 cycles of cisplatin/gemzar completed on 11/24/2020 which she tolerated well. Treatment was provided by Dr. Brand in [place]. 12/08/2020 pt chose to establish oncology care closer to home and came to Dr. Mix. 12/21/2020 CT CAP was negative for disease, however, right nipple retraction was noted. Repeat CT CAP 05/17/2021 revealed a new 3.5 x 3.7 x 3.7 cm mass in central portion of pelvis, inseparable from small bowel and from colon posteriorly. 06/11/2021 PET revealed suspicious uptake in pelvic mass, otherwise negative. 06/03/2021 she started keytruda. Repeat CT 08/18/2021 revealed progression of pelvic mass and evidence of peritoneal mets. She was started on padcev. Review of Systems 10 point ROS is neg except as stated in HPI Past Medical History Past Medical History: Cancer, COPD Additional Past Medical History / Comment(s): bladder CA, ileostomy, "something in the abdomen that they are trying to shrink" History of Any Multi-Drug Resistant Organisms: None Reported Past Surgical History: Bladder Surgery Additional Past Surgical History / Comment(s): ileostomy 06/2020 at [facility] in [facility], fatty tumor removed from rt leg, Past Anesthesia/Blood Transfusion Reactions: No Reported Reaction Past Psychological History: No Psychological Hx Reported Smoking Status: Current every day smoker Past Alcohol Use History: Rare Additional Past Alcohol Use History / Comment(s): smokes 1 PPD, started smoking age 6 or 7 Past Drug Use History: None Reported Additional Drug Use History / Comment(s): CBD gummies - Past Family History Brother(s) Family Medical History: Cancer Sister(s) Family Medical History: Cancer, Deep Vein Thrombosis (DVT) Medications and Allergies Home Medications Medication Instructions Recorded Confirmed Type Cholecalciferol [Vitamin D3 (25 25 mcg PO DAILY 06/29/21 09/22/21 History Mcg = 1000 Iu)] Omeprazole [PriLOSEC] 20 mg PO DAILY 09/22/21 09/22/21 History Ondansetron [Zofran] 4 mg PO Q8HR PRN 09/22/21 09/22/21 History Allergies Allergy/AdvReac Type Severity Reaction Status Date / Time codeine Allergy Itching Verified 09/22/21 18:17 Physical Exam Vitals: Vital Signs Temp Pulse Pulse Resp BP BP Pulse Ox 09/23/21 07:53 98.6 F 96 17 90/53 95 09/23/21 01:35 98.0 F 95 18 90/55 95 09/22/21 19:43 97.8 F 89 16 94/60 100 09/22/21 19:11 87 16 88/54 98 09/22/21 18:47 87 16 96 09/22/21 16:55 67 18 91/54 97 09/22/21 15:25 101 H 20 103/66 99 09/22/21 13:30 97.8 F 112 H 16 96/63 99 Intake and Output 09/22/21 09/23/21 09/23/21 22:59 06:59 14:59 Output Total 300 Balance -300 Output: Urine 300 Other: Weight 76.657 kg - Constitutional General appearance: average body habitus, cooperative, no acute distress - EENT Eyes: anicteric sclerae, EOMI ENT: hearing grossly normal, normal oropharynx - Neck Neck: no lymphadenopathy - Respiratory Respiratory: bilateral: CTA - Cardiovascular Rhythm: regular Heart sounds: normal: S1, S2 Abnormal Heart Sounds: no systolic murmur, no diastolic murmur, no rub, no S3 Gallop, no S4 Gallop, no click, no other leg Peripheral Edema: bilateral: None - Gastrointestinal General gastrointestinal: no absent bowel sounds, no decreased bowel sounds, no distended, no hepatomegaly, no hyperactive bowel sounds, normal bowel sounds, no organomegaly, no rigid, no scaphoid, soft, no splenomegaly, tenderness, no umbilical hernia, no ventral hernia Localized gastrointestinal: tender: LLQ - Neurologic Neurologic: CNII-XII intact - Musculoskeletal Musculoskeletal: generalized weakness - Psychiatric Psychiatric: A&O x's 3, appropriate affect, intact judgment & insight Results CBC & Chem 7: 09/24/21 05:54 09/24/21 16:48 Labs: Abnormal Lab Results - Last 24 Hours (Table) 09/22/21 09/22/21 09/22/21 Range/Units 15:33 15:33 15:33 RBC 3.36 L (3.80-5.40) m/uL Hgb 11.1 L (11.4-16.0) gm/dL Hct 33.3 L (34.0-46.0) % RDW 16.1 H (11.5-15.5) % Neutrophils # 8.5 H (1.3-7.7) k/uL Lymphocytes # 0.9 L (1.0-4.8) k/uL APTT 20.6 L (22.0-30.0) sec Sodium (137-145) mmol/L Potassium (3.5-5.1) mmol/L Chloride (98-107) mmol/L Carbon Dioxide (22-30) mmol/L BUN (7-17) mg/dL Creatinine (0.52-1.04) mg/dL Glucose (74-99) mg/dL POC Glucose (mg/dL) (70-110) mg/dL Hemoglobin A1c (0.0-6.0) % Plasma Lactic Acid Amaury (0.7-2.0) mmol/L Calcium (8.4-10.2) mg/dL ALT (4-34) U/L Alkaline Phosphatase (38-126) U/L Total Protein (6.3-8.2) g/dL Albumin (3.5-5.0) g/dL Amylase (30-110) U/L Lipase (23-300) U/L Urine Appearance Turbid H (Clear) Urine Protein 2+ H (Negative) Urine Ketones Trace H (Negative) Urine Blood Small H (Negative) Urine Bilirubin 1+ H (Negative) Ur Leukocyte Esterase Large H (Negative) Urine RBC 36 H (0-5) /hpf Urine WBC >182 H (0-5) /hpf Amorphous Sediment Rare H (None) /hpf Urine Bacteria Many H (None) /hpf Hyaline Casts 7 H (0-2) /lpf Urine Mucus Occasional H (None) /hpf 09/22/21 09/22/21 09/22/21 Range/Units 15:33 15:33 19:45 RBC (3.80-5.40) m/uL Hgb (11.4-16.0) gm/dL Hct (34.0-46.0) % RDW (11.5-15.5) % Neutrophils # (1.3-7.7) k/uL Lymphocytes # (1.0-4.8) k/uL APTT (22.0-30.0) sec Sodium 132 L (137-145) mmol/L Potassium 3.2 L (3.5-5.1) mmol/L Chloride (98-107) mmol/L Carbon Dioxide 19 L (22-30) mmol/L BUN 22 H (7-17) mg/dL Creatinine 1.25 H (0.52-1.04) mg/dL Glucose 313 H (74-99) mg/dL POC Glucose (mg/dL) 268 H (70-110) mg/dL Hemoglobin A1c (0.0-6.0) % Plasma Lactic Acid Amaury 2.4 H* (0.7-2.0) mmol/L Calcium (8.4-10.2) mg/dL ALT 60 H (4-34) U/L Alkaline Phosphatase 205 H (38-126) U/L Total Protein (6.3-8.2) g/dL Albumin (3.5-5.0) g/dL Amylase <30 L (30-110) U/L Lipase 20 L (23-300) U/L Urine Appearance (Clear) Urine Protein (Negative) Urine Ketones (Negative) Urine Blood (Negative) Urine Bilirubin (Negative) Ur Leukocyte Esterase (Negative) Urine RBC (0-5) /hpf Urine WBC (0-5) /hpf Amorphous Sediment (None) /hpf Urine Bacteria (None) /hpf Hyaline Casts (0-2) /lpf Urine Mucus (None) /hpf 09/23/21 09/23/21 09/23/21 Range/Units 06:56 06:56 07:21 RBC (3.80-5.40) m/uL Hgb (11.4-16.0) gm/dL Hct (34.0-46.0) % RDW (11.5-15.5) % Neutrophils # (1.3-7.7) k/uL Lymphocytes # (1.0-4.8) k/uL APTT (22.0-30.0) sec Sodium (137-145) mmol/L Potassium (3.5-5.1) mmol/L Chloride 111 H (98-107) mmol/L Carbon Dioxide (22-30) mmol/L BUN 19 H (7-17) mg/dL Creatinine 1.09 H (0.52-1.04) mg/dL Glucose 192 H (74-99) mg/dL POC Glucose (mg/dL) 225 H (70-110) mg/dL Hemoglobin A1c 6.2 H (0.0-6.0) % Plasma Lactic Acid Amaury (0.7-2.0) mmol/L Calcium 7.6 L (8.4-10.2) mg/dL ALT 44 H (4-34) U/L Alkaline Phosphatase 162 H (38-126) U/L Total Protein 5.4 L (6.3-8.2) g/dL Albumin 2.5 L (3.5-5.0) g/dL Amylase (30-110) U/L Lipase (23-300) U/L Urine Appearance (Clear) Urine Protein (Negative) Urine Ketones (Negative) Urine Blood (Negative) Urine Bilirubin (Negative) Ur Leukocyte Esterase (Negative) Urine RBC (0-5) /hpf Urine WBC (0-5) /hpf Amorphous Sediment (None) /hpf Urine Bacteria (None) /hpf Hyaline Casts (0-2) /lpf Urine Mucus (None) /hpf Microbiology - Last 24 Hours (Table) 09/22/21 15:33 Urine Culture - Preliminary Urine,Voided Assessment and Plan (1) Bladder cancer Current Visit: Yes Status: Acute Priority: High Code(s): C67.9 - MALIGNANT NEOPLASM OF BLADDER, UNSPECIFIED SNOMED Code(s): 909317456 (2) UTI (urinary tract infection) Current Visit: Yes Status: Acute Priority: High Code(s): N39.0 - URINARY TRACT INFECTION, SITE NOT SPECIFIED SNOMED Code(s): 45710273 Plan: Bladder cancer. Patient is status post cystectomy about one year ago. Unfortunately, recently she did have recurrence. She had immunotherapy but that failed to provide pt with any substantial remission. She is now on padcev. Status post 2 cycles. Treatment will be held until she has completed antibiotic therapy. She will continue on follow-up as scheduled through the Oncologist's office for now. Agree with treatment of urinary tract infection. Agree with supportive medications for patient's symptoms. Patient is doing well since admission. X-ray of the abdomen ordered as she is having some new onset left lower quadrant pain. attests: I preformed H&P, seen and examined patient, developed impression and plan of care. Discussed with dictator. Agree with dictation, documented as a scribe
--- NOTE | 2021-09-24 18:13 | P.CONS ---
History of Present Illness - Reason for Consult Consult date: 09/24/21 Bladder Ca Requesting physician: Sarmad Sutton - History of Present Illness This is a very nice lady who was diagnosed with muscle invasive bladder cancer in April/2020,at that time,she was evaluated at [facility] in [place],it was felt that because of invasion of colon and vagina,it was decided to proceed with surgery first instead of neoadjuvant chemotherapy. On 07/01/2020,she underwent anterior exenteration with ileal loop diversion and sigmoid colon resection,pathology revealed pT4bNo disease. She recovered from surgery well and received adjuvant 4 cycles of cisplatin/gemzar completed on 11/24/2020 which she tolerated well. The above treatment was provided by Dr Brand in [place]. She came to see me on 12/08/2020 to establish oncology care closer to home. On 12/21/2020,CT scan of chest/abdomen/pelvis was negative for disease,however,right nipple retraction was noted. On 01/02/2021,brain MRI was negative (done because she was loosing balance) Repeat CT scan of chest/abdomen/pelvis on 05/17/2021 revealed a new 3.5x3.7x3.7 cm mass in central portion of pelvis,inseparable from small bowel and from colon posteriorly. On 06/11/2021, PET scan revealed suspicious uptake in pelvic mass,otherwise negative. On 06/03/2021,she started keytruda. Repeat CT scan on 08/18/2021 revealed progression of pelvic mass and evidence of peritoneal mets She feels tired,has generalized adbominal pain,no nausea or vomiting,has mild constipation. She last seen Dr. Mix on 09/02/21, at this visit unfortunetly he discussed with them She has clinical and radiographic evidence of disease progression. Her bladder cancer progressed shortly after [place] based adjuvant chemo and progressed on immunotherapy. We disucssed next line of therapy with enfortumab vedotin,potential benefit/side effects,she agreed to proceed with it. Will also request [facility]. Replace the old non functioning port. She is status post PAdcev Day 1 and 8 She presents with Nausea, vomiting and diarrhea. Urine positive for gram negative Bacili Review of Systems All systems: negative Constitutional: Reports as per HPI Past Medical History Past Medical History: Cancer, COPD Additional Past Medical History / Comment(s): bladder CA, ileostomy, "something in the abdomen that they are trying to shrink" History of Any Multi-Drug Resistant Organisms: None Reported Past Surgical History: Bladder Surgery Additional Past Surgical History / Comment(s): ileostomy 06/2020 at [facility] in [facility], fatty tumor removed from rt leg, Past Anesthesia/Blood Transfusion Reactions: No Reported Reaction Past Psychological History: No Psychological Hx Reported Smoking Status: Current every day smoker Past Alcohol Use History: Rare Additional Past Alcohol Use History / Comment(s): smokes 1 PPD, started smoking age 6 or 7 Past Drug Use History: None Reported Additional Drug Use History / Comment(s): CBD gummies - Past Family History Brother(s) Family Medical History: Cancer Sister(s) Family Medical History: Cancer, Deep Vein Thrombosis (DVT) Medications and Allergies Home Medications Medication Instructions Recorded Confirmed Type Cholecalciferol [Vitamin D3 (25 25 mcg PO DAILY 06/29/21 09/22/21 History Mcg = 1000 Iu)] Omeprazole [PriLOSEC] 20 mg PO DAILY 09/22/21 09/22/21 History Ondansetron [Zofran] 4 mg PO Q8HR PRN 09/22/21 09/22/21 History Allergies Allergy/AdvReac Type Severity Reaction Status Date / Time codeine Allergy Itching Verified 09/22/21 18:17 Physical Exam Vitals: Vital Signs Temp Pulse Resp BP BP Pulse Ox 09/24/21 07:58 97.8 F 89 16 90/54 97 09/24/21 04:08 98.2 F 93 14 79/47 85/52 96 09/23/21 20:29 98.1 F 96 14 103/65 98 09/23/21 20:00 17 09/23/21 14:00 98.1 F 96 17 93/61 95 Intake and Output 09/23/21 09/24/21 09/24/21 22:59 06:59 14:59 Intake Total 240 Output Total 250 300 Balance -250 -300 240 Intake: Oral 240 Output: Urine 250 300 Other: Voiding Method Ileal Conduit (Right) Ileal Conduit (Right) - Constitutional General appearance: cooperative - EENT Eyes: EOMI ENT: NA/AT - Respiratory Respiratory: bilateral: diminished - Cardiovascular Rhythm: regularly irregular - Gastrointestinal General gastrointestinal: soft - Integumentary Integumentary: pale - Neurologic Neurologic: CNII-XII intact - Musculoskeletal Musculoskeletal: generalized weakness - Psychiatric Psychiatric: A&O x's 3 Results CBC & Chem 7: 09/24/21 05:54 09/24/21 16:48 Labs: Abnormal Lab Results - Last 24 Hours (Table) 09/23/21 09/23/21 09/24/21 Range/Units 17:36 20:29 05:54 RBC 2.63 L (4.10-5.20) X 10*6/uL Hgb 8.4 L (12.0-15.0) g/dL Hct 26.1 L (37.2-46.3) % MCV 99.2 H (80.0-97.0) fL RDW 17.1 H (11.5-14.5) % Plt Count 97 L (140-440) X 10*3/uL Plt Count Comment DECREASED A Absolute Nucleated RBC 0.02 H (0.00-0.00) X 10*3/uL Immature Gran # 0.17 H (0.00-0.04) X 10*3/uL Lymphocytes # 0.81 L (0.90-5.00) X 10*3/uL Eosinophils # 0.02 L (0.04-0.35) X 10*3/uL NRBC/100 WBC Diff 0.4 H (0.0-0.0) /100 WBCS Potassium (3.5-5.5) mmol/L Carbon Dioxide (20.0-27.5) mmol/L Anion Gap (10.00-18.00) mmol/L Est GFR (CKD-EPI)AfAm (60.0-200.0) Est GFR (CKD-EPI)NonAf (60.0-200.0) Glucose (70-110) mg/dL POC Glucose (mg/dL) 265 H 229 H (70-110) mg/dL Calcium (8.7-10.3) mg/dL ALT (8-44) U/L Alkaline Phosphatase (41-126) U/L Total Protein (6.2-8.2) g/dL Albumin (3.8-4.9) g/dL Albumin/Globulin Ratio (1.60-3.17) g/dL 09/24/21 09/24/21 09/24/21 Range/Units 05:54 07:09 11:35 RBC (4.10-5.20) X 10*6/uL Hgb (12.0-15.0) g/dL Hct (37.2-46.3) % MCV (80.0-97.0) fL RDW (11.5-14.5) % Plt Count (140-440) X 10*3/uL Plt Count Comment Absolute Nucleated RBC (0.00-0.00) X 10*3/uL Immature Gran # (0.00-0.04) X 10*3/uL Lymphocytes # (0.90-5.00) X 10*3/uL Eosinophils # (0.04-0.35) X 10*3/uL NRBC/100 WBC Diff (0.0-0.0) /100 WBCS Potassium 2.7 L* (3.5-5.5) mmol/L Carbon Dioxide 19.1 L (20.0-27.5) mmol/L Anion Gap 9.90 L (10.00-18.00) mmol/L Est GFR (CKD-EPI)AfAm 55.7 L (60.0-200.0) Est GFR (CKD-EPI)NonAf 48.1 L (60.0-200.0) Glucose 195 H (70-110) mg/dL POC Glucose (mg/dL) 206 H 271 H (70-110) mg/dL Calcium 7.3 L (8.7-10.3) mg/dL ALT 45 H (8-44) U/L Alkaline Phosphatase 134 H (41-126) U/L Total Protein 5.1 L (6.2-8.2) g/dL Albumin 2.5 L (3.8-4.9) g/dL Albumin/Globulin Ratio 0.96 L (1.60-3.17) g/dL Microbiology - Last 24 Hours (Table) 09/22/21 15:33 Urine Culture - Preliminary Urine,Voided Gram Neg Bacilli Assessment and Plan (1) Diarrhea Narrative/Plan: Stool studies ordered Current Visit: Yes Status: Acute Code(s): R19.7 - DIARRHEA, UNSPECIFIED SNOMED Code(s): 80347745 (2) Nausea Current Visit: Yes Status: Acute Code(s): R11.0 - NAUSEA SNOMED Code(s): 369320669 (3) Bladder cancer Narrative/Plan: Recently started on new therapy PADCEV Recent new port change Current Visit: Yes Status: Acute Priority: High Code(s): C67.9 - MALIGNANT NEOPLASM OF BLADDER, UNSPECIFIED SNOMED Code(s): 471983429 (4) Dehydration Current Visit: Yes Status: Acute Code(s): E86.0 - DEHYDRATION SNOMED Code(s): 15024295 (5) UTI (urinary tract infection) Narrative/Plan: Gram Neg Bacilli, blood cultures ordered as well with recent port change and treatment Current Visit: Yes Status: Acute Priority: High Code(s): N39.0 - URINARY TRACT INFECTION, SITE NOT SPECIFIED SNOMED Code(s): 42228883 Plan: Dr. Gibbons: Simeon mathew completed the full history and physical and developed the above impression and plan, agree with dictation, dictated as a ascribe
[2021-09-24 20:40] LABS: Glucose,Whole Blood 231 mg/dL (70-110)
[2021-09-25 04:08] VITALS: RESP 18
[2021-09-25 07:30] LABS: Glucose,Whole Blood 188 mg/dL (70-110)
[2021-09-25] MEDS: INSULIN DETEMIR (LEVEMIR) 100 UNIT/ML SYR SQ SCH (07:53)
[2021-09-25] MEDS: PANTOPRAZOLE 40 MG TABLET PO SCH (07:54)
[2021-09-25] MEDS: CHOLECALCIFEROL 25 MCG (1000 IU) TABLET PO SCH (07:54)
[2021-09-25] MEDS: INSULIN ASPART (NovoLOG) 100 UNIT/ML VIAL SQ SCH ×4 (07:54→12:30)
[2021-09-25 08:16] VITALS: BP 99/62; PULSE 95; TEMP 98.2
[2021-09-25 08:46] LABS: Basophils # (A) 0.09 X 10*3/uL (0.00-0.10); Basophils % (A) 1.6 %; Eosinophils # (A) 0.02 X 10*3/uL (0.04-0.35); Eosinophils % (A) 0.4 %; HCT 24.2 % (37.2-46.3); HGB 7.7 g/dL (12.0-15.0); Immature Grans, Automated 2.7 %; Lymphocytes # (A) 0.92 X 10*3/uL (0.90-5.00); Lymphocytes % (A) 16.5 %; MCH 31.3 pg (27.0-32.0); MCHC 31.8 g/dL (32.0-37.0); MCV 98.4 fL (80.0-97.0); Mean Platelet Volume 12.2 fL (9.5-12.2); Monocytes # (A) 0.64 X 10*3/uL (0.20-1.00); Monocytes % (A) 11.5 %; NRBC Per 100 WBC 0 /100 WBCS (0.0-0.0); Neutrophils # (A) 3.75 X 10*3/uL (1.80-7.70); Neutrophils % (A) 67.3 %; Platelet Count 96 X 10*3/uL (140-440); RBC 2.46 X 10*6/uL (4.10-5.20); RDW 17.3 % (11.5-14.5); WBC 5.57 X 10*3/uL (4.50-10.00)
[2021-09-25 11:13] LABS: African American GFR (CKD) 61.9 (60.0-200.0); Albumin 2.2 g/dL (3.8-4.9); Albumin/Globulin Ratio 0.88 (1.60-3.17); BUN/Creat Ratio 8.91 Ratio (12.00-20.00); Blood Urea Nitrogen 9.8 mg/dL (9.0-27.0); Globulin 2.5 g/dL (1.6-3.3); Magnesium 1.9 mg/dL (1.5-2.4); Non-African American GFR(CKD) 53.4 (60.0-200.0); Potassium 3.3 mmol/L (3.5-5.5); Total Bilirubin 0.7 mg/dL (0.30-1.20); Total Protein 4.7 g/dL (6.2-8.2)
[2021-09-25 11:41] LABS: Glucose,Whole Blood 206 mg/dL (70-110)
[2021-09-25] MEDS ORDERED: POTASSIUM CHLORIDE ER 20 MEQ TAB.ER PO STA (12:09)
[2021-09-25] MEDS: SODIUM CHLORIDE 0.9% 1,000 ML IV SCH (12:30)
== END 2021-09-25 15:36 | disposition home or self-care (01) | DRG 690 ==
LOC: EC 12:09 → 5NMEDONC 16:43 → 6NMEDSUR 18:30
PROVIDERS: ADMIT Hospitalist; ATTEND Hospitalist
DX: N39.0 Urinary tract infection, site not specified (principal); E87.1 Hypo-osmolality and hyponatremia; N17.8 Other acute kidney failure; C78.6 Secondary malignant neoplasm of retroperitoneum and peritoneum; E87.2 Acidosis; B96.89 Other specified bacterial agents as the cause of diseases classified elsewhere; A08.4 Viral intestinal infection, unspecified; C67.9 Malignant neoplasm of bladder, unspecified; E86.0 Dehydration; J44.9 Chronic obstructive pulmonary disease, unspecified; Z92.21 Personal history of antineoplastic chemotherapy; E11.65 Type 2 diabetes mellitus with hyperglycemia; R74.01 Elevation of levels of liver transaminase levels; E86.1 Hypovolemia; K59.00 Constipation, unspecified; N64.53 Retraction of nipple; R73.03 Prediabetes; Z85.51 Personal history of malignant neoplasm of bladder; Z93.6 Other artificial openings of urinary tract status; Z88.5 Allergy status to narcotic agent
CPT/HCPCS: 36415; 74021; 80053; 81001; 82150; 83036; 83605; 83690; 83735; 84132; 85025; 85610; 85730; 87040; 87077; 87086; 87186; 96361; 96365; 96375; 99285

== ENCOUNTER 2021-10-06 13:36 | Emergency (ER) | payer OTHER ==
[2021-10-06] MEDS ORDERED: SODIUM CHLORIDE 0.9% 1,000 ML IV STA (13:37)
[2021-10-06 13:41] VITALS: TEMP 98.3
[2021-10-06 14:05] VITALS: BP 102/53; PULSE 84; RESP 16
[2021-10-06 14:06] LABS: Albumin 2.7 g/dL (3.5-5.0); Calcium 8.6 mg/dL (8.4-10.2); Potassium 3.5 mmol/L (3.5-5.1); Total Bilirubin 0.9 mg/dL (0.2-1.3); Total Protein 5.6 g/dL (6.3-8.2)
--- NOTE | 2021-10-06 14:12 | CT ---
EXAMINATION TYPE: CT brain wo con CT DLP: 1123.6 mGycm, Automated exposure control for dose reduction was used. DATE OF EXAM: 10/06/2021 2:00 PM COMPARISON: PET/CT 06/11/2021, MRI brain 01/02/2021. CLINICAL INDICATION:Female, 61 years old with history of Neuro deficit, acute, stroke suspected, Code stroke TECHNIQUE: Brain: Multiple axial CT images of the brain were obtained without IV contrast. Coronal and sagittal reformats reviewed. FINDINGS: Brain: Extra-axial spaces: No abnormal extra-axial fluid collections. Ventricular system: Within normal limits Cerebral parenchyma: No acute intraparenchymal hemorrhage or mass effect. Right frontoparietal regio n of hypodensity with loss of hu-white differentiation (series 201, image 51). The remaining hu-w martinez junction is well differentiated. Cerebral volume loss. Cerebellum: Unremarkable. Mass effect: No evidence of midline shift. Intracranial vasculature: Atherosclerotic calcifications of the intracranial vessels. Soft tissues: Normal. Calvarium/osseous structures: No depressed skull fracture. Paranasal sinuses and mastoid air cells: Clear Visualized orbits: Right aphakia IMPRESSION: Right frontoparietal hypodense region concerning for acute/subacute ischemia. Findings called to and discussed with Dr. Sarmad Zurita at 2:08 PM on 10/06/2021.
[2021-10-06 14:13] LABS: Anisocytosis Moderate; Basophils % (A) 1 %; Eosinophils % (A) 0 %; HCT 26.3 % (34.0-46.0); Hypochromasia Slight; Lymphocytes # (A) 1.5 k/uL (1.0-4.8); Lymphocytes % (A) 34 %; MCH 33.4 pg (25.0-35.0); MCHC 31.8 g/dL (31.0-37.0); Macrocytosis Marked; Mean Platelet Volume 9.2; Monocytes # (A) 0.4 k/uL (0-1.0); Monocytes % (A) 9 %; Neutrophils # (A) 2.4 k/uL (1.3-7.7); Neutrophils % (A) 53 %; RDW 21.6 % (11.5-15.5); WBC 4.5 k/uL (3.8-10.6)
[2021-10-06 14:14] LABS: Prothrombin Time 10.9 sec (9.0-12.0)
[2021-10-06 14:16] LABS: HGB 8.4 gm/dL (11.4-16.0)
[2021-10-06 14:17] LABS: MCV 105.1 fL (80.0-100.0)
[2021-10-06 14:22] LABS: Partial Thromboplastin Time 21.2 sec (22.0-30.0)
[2021-10-06 14:24] LABS: Appearance,Urine Clear (Clear); Bacteria,Urine Rare /hpf; Bilirubin,Urine Negative (Negative); Blood,Urine Negative (Negative); Color,Urine Light Yellow; Glucose,Urine (UA) Negative (Negative); Hyaline Casts,Urine 1 /lpf (0-2); Ketones,Urine Negative (Negative); Leukocyte Esterase,Urine Moderate (Negative); Mucus,Urine Rare /hpf; Nitrite,Urine Positive (Negative); Protein,Urine Trace (Negative); RBC,Urine 14 /hpf (0-5); Specific Gravity,Urine 1.009 (1.001-1.035); Squamous Epithelial Cell,Urine 2 /hpf (0-4); Urobilinogen,Urine <2.0 mg/dL (<2.0); WBC,Urine 41 /hpf (0-5)
--- NOTE | 2021-10-06 14:34 | CT ---
EXAMINATION TYPE: CODE STROKE: CTA head neck CT DLP: 459 mGycm, Automated exposure control for dose reduction was used. DATE OF EXAM: 10/06/2021 2:14 PM COMPARISON: CT head 10/06/2021, PET/CT 06/11/2021, MRI brain 01/02/2021. CLINICAL INDICATION:Female, 61 years old with history of stroke; [facility], TECHNIQUE: Axially acquired helical CT angiogram of the head and neck was obtained with contrast util izing 65 cc of Isovue-370 administered intravenously. Axial images are supplemented with 3D reconstru ctions which were post-processed at an independent workstation. NASCET criteria used. FINDINGS: CTA HEAD: No evidence of acute intracranial hemorrhage, mass effect, or midline shift. The ventricles, sulci, a nd cisterns are unremarkable. The visualized portions of the internal carotid arteries, right middle cerebral artery, anterior cere bral arteries, and posterior cerebral arteries are patent. Abrupt cut off of the left middle cerebral artery M1 segment (series 405, image 486). The basilar and vertebral arteries are patent. CTA NECK: Right Carotid System: The common carotid artery and external carotid artery are patent. There is mixed calcified and noncal cified plaque at the right carotid bifurcation resulting in less than 50% stenosis. There is paucity of vessels demonstrated within the left parietal and temporal lobes. The remaining portions of the in ternal carotid artery demonstrate normal size without significant narrowing. Left Carotid System: The common carotid artery and external carotid artery are patent. There is mixed calcified and noncal cified plaque at the left carotid bifurcation resulting in 70% stenosis. The carotid bifurcation demo nstrates no evidence of hemodynamically significant stenosis. The remaining portions of the internal carotid artery demonstrate normal size without significant narrowing. Vertebral arteries are patent without evidence hemodynamically significant stenosis. There is a three-vessel aortic arch. The origins of the great vessels are patent. No evidence of hemo dynamically significant stenosis. Left chest catheter appears to terminate in the left brachiocephali c vein. IMPRESSION: 1. 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 2. Less than 50% stenosis of the right internal carotid artery and 70% stenosis of the left internal carotid artery at their origins. Findings called to and discussed with Dr. Sarmad Zurita at 2:29 PM on 10/06/2021.
--- NOTE | 2021-10-06 14:43 | ED ---
Neuro HPI - General Chief Complaint: Neuro Symptoms/Deficit Stated Complaint: Stroke Time Seen by Provider: 10/06/21 13:37 Source: family, EMS, RN notes reviewed, old records reviewed Mode of arrival: EMS Limitations: altered mental status - History of Present Illness Is the patient presenting with stroke symptoms?: Yes Last Known Well Date: 10/05/21 Last Known Well Time: 22:00 Initial Comments: 61-year-old female with a history of bladder cancer status post resection was getting chemotherapy also history of UTI in the ileostomy who normally is awake alert oriented 4 last known well time was 10 PM last evening was waking up by her at 1 PM today and found to be confused but able ambulate well unable answer questions. She was transported here by EMS evidence of a CVA. Per paramedics patient had left lateral gaze. Right facial droop right upper extremity flaccidity and right lower flaccid. She just finished Avelox for urinary tract infection. No nausea vomiting fevers chills sweats reported no other information available at this time - Related Data Home Medications: Home Medications Medication Instructions Recorded Confirmed Cholecalciferol [Vitamin D3 (25 25 mcg PO DAILY 06/29/21 09/22/21 Mcg = 1000 Iu)] Omeprazole [PriLOSEC] 20 mg PO DAILY 09/22/21 09/22/21 Ondansetron [Zofran] 4 mg PO Q8HR PRN 09/22/21 09/22/21 Previous Rx's Medication Instructions Recorded Acetaminophen Tab [Tylenol] 650 mg PO Q6HR PRN tab 09/25/21 cefUROXime axetiL [Ceftin] 500 mg PO BID 4 Days #8 tab 09/25/21 Allergies/Adverse Reactions: Allergies Allergy/AdvReac Type Severity Reaction Status Date / Time codeine Allergy Itching Verified 09/22/21 18:17 Review of Systems ROS Statement: Those systems with pertinent positive or pertinent negative responses have been documented in the HPI. ROS Other: All systems not noted in ROS Statement are negative. General Exam - General Exam Comments Initial Comments: This is a well-developed well-nourished awake but unresponsive female demonstrate left lateral gaze Limitations: altered mental status General appearance: alert, in no apparent distress Head exam: Present: atraumatic, normocephalic, normal inspection Eye exam: Present: other (Left lateral gaze) Neck exam: Present: normal inspection, other. Absent: tenderness, meningismus, lymphadenopathy Respiratory exam: Present: normal lung sounds bilaterally. Absent: respiratory distress, wheezes, rales, rhonchi, stridor Cardiovascular Exam: Present: regular rate (No stridor JVD or bruits), normal rhythm, normal heart sounds. Absent: systolic murmur, diastolic murmur, rubs, gallop, clicks GI/Abdominal exam: Present: soft, other (Ileostomy in place appears be functional) Rectal exam: Present: deferred Extremities exam: Present: normal inspection, normal capillary refill. Absent: full ROM Back exam: Present: normal inspection Neurological exam: Present: altered, motor sensory deficit Psychiatric exam: Present: other (Unable to evaluate) Skin exam: Present: warm, dry, intact Stroke MDM - Lab Data Result diagrams: 10/06/21 13:40 10/06/21 13:40 Lab Results 10/06/21 10/06/21 10/06/21 Range/Units 13:40 13:40 13:40 WBC 4.5 (3.8-10.6) k/uL RBC 2.50 L (3.80-5.40) m/uL Hgb 8.4 L D (11.4-16.0) gm/dL Hct 26.3 L (34.0-46.0) % MCV 105.1 H D (80.0-100.0) fL MCH 33.4 (25.0-35.0) pg MCHC 31.8 (31.0-37.0) g/dL RDW 21.6 H (11.5-15.5) % MPV 9.2 Hypochromasia Slight Anisocytosis Moderate Macrocytosis Marked A PT 10.9 (9.0-12.0) sec INR 1.0 (<1.2) APTT 21.2 L (22.0-30.0) sec Sodium 138 (137-145) mmol/L Potassium 3.5 (3.5-5.1) mmol/L Chloride 102 (98-107) mmol/L Carbon Dioxide 28 (22-30) mmol/L Anion Gap 8 mmol/L BUN 15 (7-17) mg/dL Creatinine 0.86 (0.52-1.04) mg/dL Est GFR (CKD-EPI)AfAm 84 (>60 ml/min/1.73 sqM) Est GFR (CKD-EPI)NonAf 73 (>60 ml/min/1.73 sqM) Glucose 90 (74-99) mg/dL Calcium 8.6 (8.4-10.2) mg/dL Total Bilirubin 0.9 (0.2-1.3) mg/dL AST 128 H (14-36) U/L ALT 73 H (4-34) U/L Alkaline Phosphatase 336 H (38-126) U/L Troponin I (0.000-0.034) ng/mL Total Protein 5.6 L (6.3-8.2) g/dL Albumin 2.7 L (3.5-5.0) g/dL Urine Color Urine Appearance (Clear) Urine pH (5.0-8.0) Ur Specific Hart (1.001-1.035) Urine Protein (Negative) Urine Glucose (UA) (Negative) Urine Ketones (Negative) Urine Blood (Negative) Urine Nitrite (Negative) Urine Bilirubin (Negative) Urine Urobilinogen (<2.0) mg/dL Ur Leukocyte Esterase (Negative) Urine RBC (0-5) /hpf Urine WBC (0-5) /hpf Ur Squamous Epith Cells (0-4) /hpf Urine Bacteria (None) /hpf Hyaline Casts (0-2) /lpf Urine Mucus (None) /hpf 10/06/21 10/06/21 Range/Units 13:40 14:02 WBC (3.8-10.6) k/uL RBC (3.80-5.40) m/uL Hgb (11.4-16.0) gm/dL Hct (34.0-46.0) % MCV (80.0-100.0) fL MCH (25.0-35.0) pg MCHC (31.0-37.0) g/dL RDW (11.5-15.5) % MPV Hypochromasia Anisocytosis Macrocytosis PT (9.0-12.0) sec INR (<1.2) APTT (22.0-30.0) sec Sodium (137-145) mmol/L Potassium (3.5-5.1) mmol/L Chloride (98-107) mmol/L Carbon Dioxide (22-30) mmol/L Anion Gap mmol/L BUN (7-17) mg/dL Creatinine (0.52-1.04) mg/dL Est GFR (CKD-EPI)AfAm (>60 ml/min/1.73 sqM) Est GFR (CKD-EPI)NonAf (>60 ml/min/1.73 sqM) Glucose (74-99) mg/dL Calcium (8.4-10.2) mg/dL Total Bilirubin (0.2-1.3) mg/dL AST (14-36) U/L ALT (4-34) U/L Alkaline Phosphatase (38-126) U/L Troponin I 0.031 (0.000-0.034) ng/mL Total Protein (6.3-8.2) g/dL Albumin (3.5-5.0) g/dL Urine Color Light Yellow Urine Appearance Clear (Clear) Urine pH 8.0 (5.0-8.0) Ur Specific Hart 1.009 (1.001-1.035) Urine Protein Trace H (Negative) Urine Glucose (UA) Negative (Negative) Urine Ketones Negative (Negative) Urine Blood Negative (Negative) Urine Nitrite Positive H (Negative) Urine Bilirubin Negative (Negative) Urine Urobilinogen <2.0 (<2.0) mg/dL Ur Leukocyte Esterase Moderate H (Negative) Urine RBC 14 H (0-5) /hpf Urine WBC 41 H (0-5) /hpf Ur Squamous Epith Cells 2 (0-4) /hpf Urine Bacteria Rare H (None) /hpf Hyaline Casts 1 (0-2) /lpf Urine Mucus Rare H (None) /hpf - NIH Stroke Scale 1b. LOC Questions: (2) answers no questions correctly 1c. LOC Commands: (2) performs no tasks correctly 2. Best Gaze: (1) partial gaze palsy 3. Visual: (0) no visual loss 4. Facial Palsy: (1) minor paralysis 5a. Motor Arm Left: (0) no drift 5b. Motor Arm Right: (4) no movement 6a. Motor Leg Left: (0) no drift 6b. Motor Leg Right: (3) no gravity effort 7. Limb Ataxia: (0) absent 8. Sensory: (0) normal 9. Best Language: (un) mute/global aphasia 10. Dysarthria: (1) mild/moderate dysarthria 11. Extinction/Inattention: (2) profound inattention NIH Score total: 16 - Thrombolytic Inclusion/Exclusion Thrombolytic Exclusion Criteria: Symptom Onset > 4.5 Hours (Last known well time 2200 p.m. last evening) - Core Measures AMI Core Measures Followed: Yes - Medical Decision Making Patient was evaluated CT does show evidence of stroke in the left frontal lobe area. Please see complete report CT angios shows evidence of an abrupt cutoff at the left M1 segment. Discussed the case with the patient is family patient is a full code I did discuss case Dr. Marie. Patient will be transported for emergent thrombectomy. - EKG Data -: EKG Interpreted by Me EKG shows normal: sinus rhythm (Sinus rhythm of 84 MN interval 186 QRS duration 102 QT/QTC 424/465 low-voltage and complete right bundle-branch block) Past Medical History Past Medical History: Cancer, COPD Additional Past Medical History / Comment(s): bladder CA, ileostomy, "something in the abdomen that they are trying to shrink" History of Any Multi-Drug Resistant Organisms: None Reported Past Surgical History: Bladder Surgery Additional Past Surgical History / Comment(s): ileostomy 06/2020 at [facility] in [facility], fatty tumor removed from rt leg, Past Anesthesia/Blood Transfusion Reactions: No Reported Reaction Past Psychological History: No Psychological Hx Reported Smoking Status: Current every day smoker Past Alcohol Use History: Rare Additional Past Alcohol Use History / Comment(s): smokes 1 PPD, started smoking age 6 or 7 Past Drug Use History: None Reported Additional Drug Use History / Comment(s): CBD gummies - Past Family History Brother(s) Family Medical History: Cancer Sister(s) Family Medical History: Cancer, Deep Vein Thrombosis (DVT) Course Vital Signs 10/06/21 10/06/21 13:37 14:03 Temperature 98.3 F Pulse Rate 82 84 Respiratory 18 16 Rate Blood Pressure 103/55 102/53 O2 Sat by Pulse 96 96 Oximetry - Reevaluation(s) Reevaluation #1: 10/06/21 15:02 The patient will be transferred to [place] for thrombectomy at [facility] Critical Care Time Critical Care Time: Yes Total Critical Care Time: 45 Critical Care Time: This includes initial presentation with history physical labs x-rays discussed with paramedics discussed with family members discussion with interventional neurology documentation of the above Disposition Clinical Impression: Cerebrovascular accident (CVA), Bladder cancer, Urinary tract infection Disposition: OTHER INSTITUTION NOT DEFINED Condition: Serious Referrals: None,Stated [Primary Care Provider] - 1-2 days Decision Date: 10/06/21 Decision Time: 14:35 - Out of Hospital Transfer - Req. Specs Out of Hospital Transfer - Requested Specifics: Neurological ICU
[2021-10-06] MEDS ORDERED: cefTRIAXone IN SWFI 1,000 MG/10 ML SYRINGE IVP STA (14:49)
--- NOTE | 2021-10-06 15:05 | XR ---
EXAMINATION TYPE: XR chest 2V DATE OF EXAM: 10/06/2021 COMPARISON: 07/05/2021 HISTORY: 61-year-old female confusion, altered mental status TECHNIQUE: AP and lateral views FINDINGS: Left anterior chest wall injection port. Catheter tip not seen beyond the left subclavian vein. There is some focal kinking along the inferior margin of the clavicle. Heart upper limits of normal in size. Mild interstitial prominence may be secondary to slight hypoven tilatory changes. No beryl consolidation or pleural effusion. IMPRESSION: 1. Left anterior chest wall injection port. The catheter tip is in the expected left subclavian vein and there is focal kinking of the catheter along the inferior margin of the left clavicle. Correlate for pinch off syndrome. 2. Mild interstitial prominence could reflect hypoventilatory changes versus bronchitis/asthma. Other rodriguez, no acute process seen.
[2021-10-06 15:15] LABS: Platelet Count 78 k/uL (150-450)
== END 2021-10-06 15:56 | disposition other institution (70) ==
LOC: EC 13:36
DX: I63.9 Cerebral infarction, unspecified (principal); C67.9 Malignant neoplasm of bladder, unspecified; J44.9 Chronic obstructive pulmonary disease, unspecified; F17.200 Nicotine dependence, unspecified, uncomplicated; Z88.5 Allergy status to narcotic agent
CPT/HCPCS: 36415; 93005; 80053; 84484; 85025; 85610; 85730; 81001; 87086; 71046; 70496; 70450; 70498; 99291; 96374; 96361; J0696; Q9967

== ENCOUNTER 2021-12-17 00:49 | Inpatient (IN) | payer OTHER ==
--- NOTE | 2021-12-17 01:27 | ED ---
Weakness HPI - General Chief complaint: Weakness Stated complaint: Weakness, CA pt Time Seen by Provider: 12/17/21 01:21 Source: patient, RN notes reviewed, old records reviewed Mode of arrival: ambulatory Limitations: no limitations - History of Present Illness Initial comments: This is a 61-year-old female to the emergency department for evaluation. Patient does have underlying altered mental status from prior CVA coming in with persistent nausea vomiting and able to eat and drink. Patient does have history of stomach cancer MD Complaint: generalized weakness, lack of energy -: days(s) Location: generalized Severity: severe Severity scale (1-10): 10 Quality: constant Consistency: constant Improves with: movement, exertion Worsens with: none Context: recent illness, history of similar Associated Symptoms: confusion, loss of appetite, nausea/vomiting - Related Data Home Medications Medication Instructions Recorded Confirmed Cholecalciferol [Vitamin D3 (25 25 mcg PO DAILY 06/29/21 09/22/21 Mcg = 1000 Iu)] Omeprazole [PriLOSEC] 20 mg PO DAILY 09/22/21 09/22/21 Ondansetron [Zofran] 4 mg PO Q8HR PRN 09/22/21 09/22/21 Previous Rx's Medication Instructions Recorded Acetaminophen Tab [Tylenol] 650 mg PO Q6HR PRN tab 09/25/21 cefUROXime axetiL [Ceftin] 500 mg PO BID 4 Days #8 tab 09/25/21 Allergies Allergy/AdvReac Type Severity Reaction Status Date / Time codeine Allergy Itching Verified 12/17/21 01:00 Review of Systems ROS Statement: Those systems with pertinent positive or pertinent negative responses have been documented in the HPI. ROS Other: All systems not noted in ROS Statement are negative. Past Medical History Past Medical History: Cancer, COPD Additional Past Medical History / Comment(s): bladder CA, ileostomy, "something in the abdomen that they are trying to shrink" History of Any Multi-Drug Resistant Organisms: None Reported Past Surgical History: Bladder Surgery Additional Past Surgical History / Comment(s): ileostomy 06/[address] [facility] in [facility], fatty tumor removed from rt leg, Past Anesthesia/Blood Transfusion Reactions: No Reported Reaction Past Psychological History: No Psychological Hx Reported Smoking Status: Current every day smoker Past Alcohol Use History: Rare Past Drug Use History: None Reported - Past Family History Brother(s) Family Medical History: Cancer Sister(s) Family Medical History: Cancer, Deep Vein Thrombosis (DVT) General Exam Limitations: no limitations General appearance: alert, in no apparent distress Head exam: Present: atraumatic, normocephalic, normal inspection Eye exam: Present: normal appearance, PERRL, EOMI. Absent: scleral icterus, co njunctival injection, periorbital swelling ENT exam: Present: normal exam, mucous membranes moist Neck exam: Present: normal inspection. Absent: tenderness, meningismus, lymphadenopathy Respiratory exam: Present: normal lung sounds bilaterally. Absent: respiratory distress, wheezes, rales, rhonchi, stridor Cardiovascular Exam: Present: regular rate, normal rhythm, normal heart sounds. Absent: systolic murmur, diastolic murmur, rubs, gallop, clicks GI/Abdominal exam: Present: soft, normal bowel sounds. Absent: distended, tenderness, guarding, rebound, rigid Extremities exam: Present: normal inspection, full ROM, normal capillary refill. Absent: tenderness, pedal edema, joint swelling, calf tenderness Back exam: Present: normal inspection Neurological exam: Present: alert, oriented X3, CN II-XII intact Psychiatric exam: Present: normal affect, normal mood Skin exam: Present: warm, dry, intact, normal color. Absent: rash Course Vital Signs 12/17/21 00:58 Temperature 97.8 F Pulse Rate 105 H Respiratory 20 Rate Blood Pressure 101/79 O2 Sat by Pulse 98 Oximetry - Reevaluation(s) Reevaluation #1: 12/17/21 03:24 Medical record is reviewed Reevaluation #2: 12/17/21 03:25 Patient informed of results and questions answered Reevaluation #3: 12/17/21 03:25 Patient has no change in symptoms here in the ER - Consultations Consultation #1: Spoke with admitting physicians who agree to admit the patient EKG Findings - EKG Comments: EKG Findings:: EKG is sinus rhythm rate 91 AZ 202 QRS 88 QTc 407 Medical Decision Making - Medical Decision Making 61 female will admit for malnutrition decreased appetite unable to eat and drink, hypokalemia - Lab Data Result diagrams: 12/17/21 01:53 12/17/21 01:53 Lab Results 10/28/22 10/28/22 10/28/22 Range/Units 01:53 01:53 01:53 WBC 7.2 (3.8-10.6) k/uL RBC 3.42 L (3.80-5.40) m/uL Hgb 12.6 (11.4-16.0) gm/dL Hct 35.3 (34.0-46.0) % MCV 103.1 H (80.0-100.0) fL MCH 36.8 H (25.0-35.0) pg MCHC 35.7 (31.0-37.0) g/dL RDW 14.5 (11.5-15.5) % Plt Count 149 L (150-450) k/uL MPV 8.2 Neutrophils % 53 % Lymphocytes % 38 % Monocytes % 6 % Eosinophils % 1 % Basophils % 0 % Neutrophils # 3.8 (1.3-7.7) k/uL Lymphocytes # 2.7 (1.0-4.8) k/uL Monocytes # 0.4 (0-1.0) k/uL Eosinophils # 0.1 (0-0.7) k/uL Basophils # 0.0 (0-0.2) k/uL Macrocytosis Slight Sodium 134 L (137-145) mmol/L Potassium 3.0 L (3.5-5.1) mmol/L Chloride 96 L (98-107) mmol/L Carbon Dioxide 23 (22-30) mmol/L Anion Gap 15 mmol/L BUN 13 (7-17) mg/dL Creatinine 1.10 H (0.52-1.04) mg/dL Est GFR (CKD-EPI)AfAm 62 (>60 ml/min/1.73 sqM) Est GFR (CKD-EPI)NonAf 54 (>60 ml/min/1.73 sqM) Glucose 94 (74-99) mg/dL Plasma Lactic Acid Amaury 1.1 (0.7-2.0) mmol/L Calcium 9.5 (8.4-10.2) mg/dL Total Bilirubin 0.6 (0.2-1.3) mg/dL AST 46 H (14-36) U/L ALT 43 H (4-34) U/L Alkaline Phosphatase 109 (38-126) U/L Total Protein 7.1 (6.3-8.2) g/dL Albumin 4.2 (3.5-5.0) g/dL Amylase 42 (30-110) U/L Lipase 49 (23-300) U/L Disposition Clinical Impression: Dehydration, Nausea, Hypokalemia, Acute renal failure, Weakness Disposition: ADMITTED IP TO THIS HOSP Condition: Fair Is patient prescribed a controlled substance at d/c from ED?: No Referrals: Regino Hinton MD [Primary Care Provider] - 1-2 days Time of Disposition: 03:25
[2021-12-17] MEDS ORDERED: PANTOPRAZOLE 40 MG/10 ML VIAL IVP STA (01:39)
[2021-12-17] MEDS ORDERED: SODIUM CHLORIDE 0.9% 1,000 ML IV STA ×2 (01:39)
[2021-12-17] MEDS ORDERED: SODIUM CHLORIDE 0.9% 500 ML 500 ML IV STA (01:39)
[2021-12-17] MEDS ORDERED: MORPHINE SULFATE 4 MG/ML SYRINGE IV STA (01:39)
[2021-12-17] MEDS ORDERED: ONDANSETRON 4 MG/2 ML VIAL IVP STA (01:39)
[2021-12-17 02:16] LABS: Basophils % (A) 0 %; Eosinophils # (A) 0.1 k/uL (0-0.7); Eosinophils % (A) 1 %; HCT 35.3 % (34.0-46.0); HGB 12.6 gm/dL (11.4-16.0); Lymphocytes # (A) 2.7 k/uL (1.0-4.8); Lymphocytes % (A) 38 %; MCH 36.8 pg (25.0-35.0); MCHC 35.7 g/dL (31.0-37.0); MCV 103.1 fL (80.0-100.0); Macrocytosis Slight; Mean Platelet Volume 8.2; Monocytes # (A) 0.4 k/uL (0-1.0); Monocytes % (A) 6 %; Neutrophils # (A) 3.8 k/uL (1.3-7.7); Neutrophils % (A) 53 %; Platelet Count 149 k/uL (150-450); RBC 3.42 m/uL (3.80-5.40); RDW 14.5 % (11.5-15.5); WBC 7.2 k/uL (3.8-10.6)
[2021-12-17 02:30] LABS: Albumin 4.2 g/dL (3.5-5.0); Calcium 9.5 mg/dL (8.4-10.2); Total Bilirubin 0.6 mg/dL (0.2-1.3); Total Protein 7.1 g/dL (6.3-8.2)
[2021-12-17] MEDS ORDERED: NALOXONE 0.4 MG/ML 1 ML VIAL IV PRN (03:26)
[2021-12-17] MEDS ORDERED: ONDANSETRON 4 MG/2 ML VIAL IVP PRN (03:26)
[2021-12-17] MEDS ORDERED: MORPHINE SULFATE 4 MG/ML SYRINGE IV PRN (03:26)
[2021-12-17] MEDS: POTASSIUM CHLORIDE 10 MEQ in WATER FOR INJECTION 1 100ML.BAG IVPB SCH ×6 (04:54→16:18)
[2021-12-17] MEDS: DEXTROSE 5%-0.45% NACL 1,000 ML IV SCH ×2 (06:01→18:03)
[2021-12-17 06:31] LABS: Magnesium 1.5 mg/dL (1.6-2.3); Phosphorus 3.2 mg/dL (2.5-4.5)
[2021-12-17 08:40] LABS: HCT 26.4 % (34.0-46.0); MCH 36.4 pg (25.0-35.0); MCHC 34.5 g/dL (31.0-37.0); MCV 105.5 fL (80.0-100.0); Macrocytosis Moderate; Mean Platelet Volume 8.2; Platelet Count 107 k/uL (150-450); RDW 14.7 % (11.5-15.5); WBC 4.1 k/uL (3.8-10.6)
[2021-12-17] MEDS ORDERED: Magnesium Replacement Protocol 1 EACH MISC MISCELLANE PRN (08:44)
[2021-12-17 08:49] LABS: HGB 9.1 gm/dL (11.4-16.0)
[2021-12-17] MEDS ORDERED: IOPAMIDOL CONTRAST (ORAL USE) VIAL PO PRN (08:53)
--- NOTE | 2021-12-17 11:57 | CT ---
EXAMINATION TYPE: CT angio abdomen pelvis CT DLP: 1730.9 mGycm, Automated exposure control for dose reduction was used. DATE OF EXAM: 12/17/2021 11:37 AM COMPARISON: CT chest abdomen pelvis 12/21/2020, 05/09/2021, 08/09/2021, PET/CT 06/11/2021, CLINICAL INDICATION:Female, 61 years old with history of GI bleed protocol, abd pain TECHNIQUE: Multiple thin slice sub-millimeter images were obtained through the abdomen, pelvis after administration of contrast. 3-D reconstructed images and maximum intensity projection images were ob tained of the abdomen, pelvis, . CT Contrast: Contrast used:100 mL of Isovue 370 with IV Contrast, Oral contrast used: without Oral Contrast None FINDINGS: CTA Abdomen and pelvis: Scattered atherosclerosis of the arterial vasculature there is infrarenal fus iform dilation at the bifurcation which extends into the right common iliac artery with mural thrombu s measuring up to 3.1 cm. LOWER CHEST: No evidence of focal consolidation, pneumothorax or pleural effusion. LIVER: Diffusely hypoattenuating parenchyma. GALLBLADDER AND BILE DUCTS: Unremarkable. PANCREAS: Unremarkable. SPLEEN: Unremarkable. ADRENAL GLANDS: Unremarkable. KIDNEYS AND URETERS: No evidence of hydronephrosis or renal calculus. PELVIS BLADDER: The bladder is surgically absent with ileal conduit. REPRODUCTIVE: Unremarkable. ABDOMEN & PELVIS STOMACH AND BOWEL: No evidence of bowel obstruction. Postsurgical change of the bowel with suspected ileal conduit. No evidence of blush of contrast on arterial phase imaging or pooling on delayed imagi ng to suggest gastrointestinal hemorrhage. Soft tissue mass in the pelvis which was seen on prior CT 08/18/2021 has decreased in size on today's exam now measuring 3.0 x 2.1 cm, previously 4.7 x 4.9 cm. Symmetrical wall thickening of loops of large bowel in the pelvis measuring up to 7 mm. PERITONEUM: No evidence of pneumoperitoneum or free fluid. MUSCULOSKELETAL: No acute osseous abnormalities LYMPH NODES: No gross evidence for lymphadenopathy. SOFT TISSUE/ABDOMINAL WALL: Unremarkable IMPRESSION 1. No evidence of gastrointestinal hemorrhage. 2. 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 , Correlation and Attention on follow -up PET/CT. Is recommended. 3. Circumferential wall thickening and multiple loops of bowel in the pelvis near anastomotic sites correlate for colitis. 4. Surgically absent bladder with ileal conduit. 5. Hepatic steatosis. 6. 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 Stable from 12/21/2020.
[2021-12-17 13:30] LABS: African American GFR (CKD) 85 (>60 ml/min/1.73 sqM); Anion Gap 7 mmol/L; Blood Urea Nitrogen 9 mg/dL (7-17); Carbon Dioxide 20 mmol/L (22-30); Chloride 111 mmol/L (98-107); Glucose 87 mg/dL (74-99); Non-African American GFR(CKD) 73 (>60 ml/min/1.73 sqM); Sodium 138 mmol/L (137-145)
--- NOTE | 2021-12-17 14:43 | P.CONS ---
History of Present Illness - Reason for Consult Consult date: 12/17/21 bladder carcinoma, on treatment Requesting physician: Danielito Krueger - Chief Complaint nausea, vomiting, weakness, inability to tolerate oral intake - History of Present Illness Mrs. Mcmullen is a very nice female patient of Dr. Mix diagnosed with muscle invasive bladder cancer in April/2020. at that time she was evaluated at [facility] in [place], felt because of invasion of colon and vagina they proceeded with surgery first. 07/01/20 she underwent anterior exenteration with ileal loop diversion and sigmoid colon resection, pathology revealed [id number] disease. She recovered from surgery well and was treated in [place], she received adjuvant 4 cycles of cisplatin/gemzar completed 11/24/2020 which she tolerated well. She was seen by Dr. Mix 12/08/2020 to establish Oncology care closer to home. 12/21/20 CT CAP was negative for disease, however, right nipple retraction was noted. 01/02/21 brain MRI was negative (done because she was loosing balance). Repeat CT CAP 05/17/21 revealed a new 3.5x3.7x3.7 cm mass in central portion of pelvis, inseparable from small bowel and from colon posteriorly. 06/11/21 PET revealed suspicious uptake in pelvic mass, otherwise negative. 06/03/21 she started keytruda. Treatment f/u CT 08/18/21 revealed progression of pelvic mass and evidence of peritoneal mets. She started PADCEV on 09/09/2021. She developed ischemic stoke on 10/06/21, she had thrombolytic therapy, resolution of symptoms other than Werneke's aphasia. Patient was in the office yesterday for f/u, padcev, s/p 2 cycles d 1, 8, 15. reporteds that for the last 5 days patient is unable to keep any food down, more of a regurgitation as the food comes back up 30sec to 1 min after swallowing, pt agrees that she has an appetite, no recall of eating anything recently that may have gotten stuck/blocking esophagus. No fevers, chest pain, urostomy same color and volume as usual. there were sent home with some Reglan and instructions that if patient did not get better within 48 hours or if she got worse to bring her to the ER. When seen in the ER, patient is easily arousable, she engages in conversation, it is apparent by her manner and nonverbal communication the patient understands what is being said. No fevers, denying stomach wretching or heaves coming from the gut, denies hematemesis, patient thinks she might have seen some dark stools does not recall anything grossly bloody, she is denying dizziness, syncope, no other bleeding. On admit her hemoglobin was 12.6, on next lab draw it was 9.1. CT AP with GI bleed protocol ordered, her BP is low, her her heart rate is within normal limits. Review of Systems 10 point review of systems is negative except as stated in HPI Past Medical History Past Medical History: Cancer, COPD Additional Past Medical History / Comment(s): bladder CA, ileostomy, "something in the abdomen that they are trying to shrink" History of Any Multi-Drug Resistant Organisms: None Reported Past Surgical History: Bladder Surgery Additional Past Surgical History / Comment(s): ileostomy 06/[address] [facility] in [facility], fatty tumor removed from rt leg, Past Anesthesia/Blood Transfusion Reactions: No Reported Reaction Past Psychological History: No Psychological Hx Reported Smoking Status: Current every day smoker Past Alcohol Use History: Rare Past Drug Use History: None Reported - Past Family History Brother(s) Family Medical History: Cancer Sister(s) Family Medical History: Cancer, Deep Vein Thrombosis (DVT) Medications and Allergies Home Medications Medication Instructions Recorded Confirmed Type Omeprazole [PriLOSEC] 20 mg PO DAILY 09/22/21 12/17/21 History Ondansetron [Zofran] 4 mg PO Q8HR PRN 09/22/21 12/17/21 History Atorvastatin [Lipitor] 80 mg PO DAILY 12/17/21 12/17/21 History Divalproex Sodium [Depakote] 125 mg PO BID 12/17/21 12/17/21 History Metoclopramide [Reglan] 5 mg PO ACHS 12/17/21 12/17/21 History QUEtiapine [SEROquel] 12.5 mg PO HS 12/17/21 12/17/21 History Allergies Allergy/AdvReac Type Severity Reaction Status Date / Time codeine Allergy Itching Verified 12/17/21 09:28 Physical Exam Vitals: Vital Signs Temp Pulse Resp BP Pulse Ox 10/28/22 13:00 72 16 92/70 99 12/17/21 12:28 69 16 80/43 96 12/17/21 12:00 71 16 90/60 97 12/17/21 11:30 71 16 80/46 95 12/17/21 11:00 75 16 91/45 99 12/17/21 10:29 96 16 98/45 98 12/17/21 08:00 69 16 95 12/17/21 06:01 73 14 80/50 96 12/17/21 00:58 97.8 F 105 H 20 101/79 98 Intake and Output 12/16/21 12/17/21 12/17/21 22:59 06:59 14:59 Other: Weight 66.678 kg - Constitutional General appearance: average body habitus, cooperative, no acute distress - EENT dry mucous membranes Eyes: anicteric sclerae, EOMI ENT: hearing grossly normal - Neck Neck: no lymphadenopathy - Respiratory Respiratory: bilateral: CTA - Cardiovascular Rhythm: regular Heart sounds: normal: S1, S2 Abnormal Heart Sounds: no systolic murmur, no diastolic murmur, no rub, no S3 Gallop, no S4 Gallop, no click, no other leg Peripheral Edema: bilateral: None - Gastrointestinal General gastrointestinal: no absent bowel sounds, no decreased bowel sounds, no distended, no hepatomegaly, no hyperactive bowel sounds, normal bowel sounds, no organomegaly, no rigid, no scaphoid, soft, no splenomegaly, no tenderness, no umbilical hernia, no ventral hernia - Neurologic Werneke's aphasia - Musculoskeletal Musculoskeletal: generalized weakness - Psychiatric Psychiatric: A&O x's 3, appropriate affect, intact judgment & insight Results CBC & Chem 7: 12/17/21 08:34 12/17/21 12:36 Labs: Abnormal Lab Results - Last 24 Hours (Table) 12/17/21 12/17/21 12/17/21 Range/Units 01:53 01:53 06:01 RBC 3.42 L (3.80-5.40) m/uL Hgb (11.4-16.0) gm/dL Hct (34.0-46.0) % MCV 103.1 H (80.0-100.0) fL MCH 36.8 H (25.0-35.0) pg Plt Count 149 L (150-450) k/uL Sodium 134 L (137-145) mmol/L Potassium 3.0 L (3.5-5.1) mmol/L Chloride 96 L (98-107) mmol/L Carbon Dioxide (22-30) mmol/L Creatinine 1.10 H (0.52-1.04) mg/dL Calcium (8.4-10.2) mg/dL Magnesium 1.5 L (1.6-2.3) mg/dL AST 46 H (14-36) U/L ALT 43 H (4-34) U/L 12/17/21 12/17/21 Range/Units 08:34 12:36 RBC 2.50 L (3.80-5.40) m/uL Hgb 9.1 L D (11.4-16.0) gm/dL Hct 26.4 L (34.0-46.0) % MCV 105.5 H (80.0-100.0) fL MCH 36.4 H (25.0-35.0) pg Plt Count 107 L (150-450) k/uL Sodium (137-145) mmol/L Potassium (3.5-5.1) mmol/L Chloride 111 H (98-107) mmol/L Carbon Dioxide 20 L (22-30) mmol/L Creatinine (0.52-1.04) mg/dL Calcium 8.0 L (8.4-10.2) mg/dL Magnesium (1.6-2.3) mg/dL AST (14-36) U/L ALT (4-34) U/L Assessment and Plan Plan: CT AP with GI bleed protocol ordered. Suspect that the drop in hemoglobin is secondary to audible things including recent treatment, hemoconcentration secondary to poor oral intake, her heart rate is normal, her blood pressure is low though. Patient was uncertain about black or bloody stool so is absolutely reasonable to rule out an acute bleed. Pending results. If there is evidence of acute bleed there was discussion about transfer to tertiary facility. Agree with that plan. Based on patient complaints, more that she is regurgitating versus vomiting. Patient has an appetite and does want to eat. Liquids do go down. Solid foods go down and then immediately come back up. The reports no bilious emesis, no digested food or fluid. Barium swallow versus EGD to assess. Will wait until patient is more stable. CBC daily. Transfuse for hemoglobin less than 7. Treatment will be on hold until patient has recovered from her current situatio n. attests: I have seen and examined patient, performed H&P, developed impression and plan of care. Discussed with dictator. Agree with documentation, dictated as a scribe
[2021-12-17] MEDS: MAGNESIUM SULFATE-D5W PMX 1 GM in DEXTROSE/WATER 1 100ML.BAG IVPB SCH ×2 (15:22→16:21)
--- NOTE | 2021-12-17 16:59 | P.HPIM ---
History of Present Illness H&P Date: 12/17/21 This is a 62 year old female with medical history of bladder cancer and stomach cancer currently under the care of oncology and had recently undergone chemotherapy did have nausea vomiting diarrhea post. Last chemo treatment was last monday. For the last 5 days apteint has been unable to tolerate oral intake. Once food hits her throat she has issues with regurgitation. She is unsure whether she has had dark stools. Denies hematemesis, coffee grounds, denies abdominal pain. Denies nausea. She does have some white coating on her tongue and suspect this is some mucositis and nystatin swish will be added. White count 7.2 on admisson and also low sodium of 134 and potassium 3.0, patient does have some mild acute kidney injury 1.10 secondary to poor oral intake and dehydration. Patient presented with blood pressure of 101/79 and did receive 2 L fluid bolus and maintenance fluids of 130 mls per hour started in the emergency room. This morning patients blood pressure is currently 80/50 and repeat hemoglobin found to be 9.1. Drop in hemoglobin possibly diluational however will check an abdominal pelvis CT without contrast to further evaluate for a possible bleed and patient received an additional fluid bolus with improved of blood pressure to 100 systolic. Hematology team has been placed on consult for evaluation. They would like CT angiography abdomen pelvis which has been performed showing no evidence for gastrointestinal hemorrhage. There is suspected tumor recurrence on pelvis decreased in size from prior imaging. There is circumferential wall thickening and multiple bowel loops in the pelvis near anastomotic sites possible colitis. There is ileal conduit with no urinary b ladder. Hepatic steatosis. There is distal abdominal fusiform measuring 3.1 cm stable from december of 2020. Patient admitted with hydration and will be treated symptomatically. Speech therapy consultation requested. REVIEW OF SYSTEMS: CONSTITUTIONAL: No fever, no malaise, Reports fatigue. HEENT: No recent visual problems or hearing problems. Denied any sore throat. CARDIOVASCULAR: No chest pain, orthopnea, PND, no palpitations, no syncope. PULMONARY: No shortness of breath, no cough, no hemoptysis. GASTROINTESTINAL: No nausea, reports diarrhea no blood in stool reported. Reports emesis. NEUROLOGICAL: No headaches, no weakness, no numbness. HEMATOLOGICAL: Denies any bleeding or petechiae. GENITOURINARY: Denies any burning micturition, frequency, or urgency. MUSCULOSKELETAL/RHEUMATOLOGICAL: Denies any joint pain, swelling, or any muscle pain. ENDOCRINE: Denies any polyuria or polydipsia. The rest of the 14-point review of systems is negative. PHYSICAL EXAMINATION: GENERAL: The patient is alert and oriented x2-3, not in any acute distress. Well developed, well nourished. Appears pale. HEENT: Pupils are round and equally reacting to light. EOMI. No scleral icterus. No conjunctival pallor. Normocephalic, atraumatic. No pharyngeal erythema. No thyromegaly. CARDIOVASCULAR: S1 and S2 present. No murmurs, rubs, or gallops. PULMONARY: Chest is clear to auscultation, no wheezing or crackles. ABDOMEN: Soft, nontender, nondistended, normoactive bowel sounds. No palpable organomegaly. MUSCULOSKELETAL: No joint swelling or deformity. EXTREMITIES: No cyanosis, clubbing, or pedal edema. NEUROLOGICAL: Gross neurological examination did not reveal any focal deficits. Aphasic at baseline. Generalized weakness. No focal deficits. SKIN: No rashes. Assessment and plan Assessment -Nausea vomiting diarrhea secondary to chemotherapy there is also evidence for colitis on CT imaging. C.dif requested -Poor oral intake suspect secondary to recent chemo treatment with mucosal irritation and mucositis and patient will be started on nystatin swish. Speech therapy has been consulted as patient is unable to keep down solid food, has issues with regurgitation. Pending improvement patient may possibly need barium swallow versus EGD. Noted there are no GI services available in the hospital if patient requires GI services may need transfer to tertiary center. -History bladder cancer with removal of urinary bladder patient has ileal conduit with urostomy bag. 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 -Carotid artery stenosis with 50% stenosis right ICA and 70% stenosis left ICA -History COPD -Chronic daily nicotinue use 1 pack per day counseled on cessation -GI prophylaxis -DVT prophylaxis Full Code Patient will be continued on IV fluids with close monitoring, speech therapy has been consulted. We will repeat labs tomorrow and make further recommendations. Nystatin swish has been added. Urinalysis will be checked. The impression and plan of care has been dictated by Sanam Chacko, Nurse Practitioner as directed. Dr. Bella MD I have performed a history and physical examination and medical decision making of this patient, discussed the same with the dictator, and agree with the dictators assessment and plan as written, documented as a scribe. Based on total visit time, I have performed more than 50% of this visit. Past Medical History Past Medical History: Cancer, COPD Additional Past Medical History / Comment(s): bladder CA, ileostomy, "something in the abdomen that they are trying to shrink" History of Any Multi-Drug Resistant Organisms: None Reported Past Surgical History: Bladder Surgery Additional Past Surgical History / Comment(s): ileostomy 06/2020 at [facility] in [facility], fatty tumor removed from rt leg, Past Anesthesia/Blood Transfusion Reactions: No Reported Reaction Past Psychological History: No Psychological Hx Reported Smoking Status: Current every day smoker Past Alcohol Use History: Rare Past Drug Use History: None Reported - Past Family History Brother(s) Family Medical History: Cancer Sister(s) Family Medical History: Cancer, Deep Vein Thrombosis (DVT) Medications and Allergies Home Medications Medication Instructions Recorded Confirmed Type Omeprazole [PriLOSEC] 20 mg PO DAILY 09/22/21 12/17/21 History Ondansetron [Zofran] 4 mg PO Q8HR PRN 09/22/21 12/17/21 History Atorvastatin [Lipitor] 80 mg PO DAILY 12/17/21 12/17/21 History Divalproex Sodium [Depakote] 125 mg PO BID 12/17/21 12/17/21 History Metoclopramide [Reglan] 5 mg PO ACHS 12/17/21 12/17/21 History QUEtiapine [SEROquel] 12.5 mg PO HS 12/17/21 12/17/21 History Allergies Allergy/AdvReac Type Severity Reaction Status Date / Time codeine Allergy Itching Verified 12/17/21 09:28 Physical Exam Vitals: Vital Signs Temp Pulse Resp BP Pulse Ox 12/17/21 08:00 69 16 95 12/17/21 06:01 73 14 80/50 96 12/17/21 00:58 97.8 F 105 H 20 101/79 98 Intake and Output 12/16/21 12/17/21 12/17/21 22:59 06:59 14:59 Other: Weight 66.678 kg Results CBC & Chem 7: 12/17/21 08:34 12/17/21 12:36 Labs: Abnormal Lab Results - Last 24 Hours (Table) 12/17/21 12/17/21 12/17/21 Range/Units 01:53 01:53 06:01 RBC 3.42 L (3.80-5.40) m/uL Hgb (11.4-16.0) gm/dL Hct (34.0-46.0) % MCV 103.1 H (80.0-100.0) fL MCH 36.8 H (25.0-35.0) pg Plt Count 149 L (150-450) k/uL Sodium 134 L (137-145) mmol/L Potassium 3.0 L (3.5-5.1) mmol/L Chloride 96 L (98-107) mmol/L Creatinine 1.10 H (0.52-1.04) mg/dL Magnesium 1.5 L (1.6-2.3) mg/dL AST 46 H (14-36) U/L ALT 43 H (4-34) U/L 12/17/21 Range/Units 08:34 RBC 2.50 L (3.80-5.40) m/uL Hgb 9.1 L D (11.4-16.0) gm/dL Hct 26.4 L (34.0-46.0) % MCV 105.5 H (80.0-100.0) fL MCH 36.4 H (25.0-35.0) pg Plt Count 107 L (150-450) k/uL Sodium (137-145) mmol/L Potassium (3.5-5.1) mmol/L Chloride (98-107) mmol/L Creatinine (0.52-1.04) mg/dL Magnesium (1.6-2.3) mg/dL AST (14-36) U/L ALT (4-34) U/L Assessment and Plan Time with Patient: Greater than 30
[2021-12-17] MEDS: NYSTATIN 100,000 UNIT/ML SUSP 500,000 UNIT/5 ML CUP PO SCH ×2 (19:06→20:55)
[2021-12-17] MEDS: HEPARIN SODIUM,PORCINE/PF 5,000 UNIT/0.5 ML SYRINGE SQ SCH (20:55)
[2021-12-17] MEDS: DIVALPROEX SPRINKLE 125 MG CAP.SPRINK PO SCH (20:55)
[2021-12-17] MEDS: QUEtiapine 25 MG TAB PO SCH (20:56)
[2021-12-17] MEDS: FAMOTIDINE 20 MG/2 ML VIAL IV SCH (20:56)
[2021-12-17 21:39] LABS: Amorphous Sediment,Urine Rare /hpf; Appearance,Urine Cloudy (Clear); Bacteria,Urine Occasional /hpf; Bilirubin,Urine Negative (Negative); Blood,Urine Negative (Negative); Color,Urine Colorless; Glucose,Urine (UA) Negative (Negative); Hyaline Casts,Urine 1 /lpf (0-2); Ketones,Urine Negative (Negative); Leukocyte Esterase,Urine Large (Negative); Mucus,Urine Rare /hpf; Nitrite,Urine Positive (Negative); Protein,Urine Negative (Negative); RBC,Urine 7 /hpf (0-5); Specific Gravity,Urine 1.014 (1.001-1.035); Squamous Epithelial Cell,Urine 1 /hpf (0-4); Urobilinogen,Urine <2.0 mg/dL (<2.0); WBC,Urine 63 /hpf (0-5)
[2021-12-18] MEDS ORDERED: SODIUM CHLORIDE 0.9% 500 ML 500 ML IV ONE (02:35)
[2021-12-18] MEDS: HEPARIN SODIUM,PORCINE/PF 5,000 UNIT/0.5 ML SYRINGE SQ SCH ×2 (07:55→21:51)
[2021-12-18] MEDS: DIVALPROEX SPRINKLE 125 MG CAP.SPRINK PO SCH ×2 (07:55→21:51)
[2021-12-18] MEDS: ATORVASTATIN 80 MG TAB PO SCH (07:56)
[2021-12-18] MEDS: NYSTATIN 100,000 UNIT/ML SUSP 500,000 UNIT/5 ML CUP PO SCH ×2 (07:56→12:10)
[2021-12-18 08:37] LABS: ALT 29 U/L (4-34); AST 33 U/L (14-36); African American GFR (CKD) 82 (>60 ml/min/1.73 sqM); Albumin 2.7 g/dL (3.5-5.0); Albumin/Globulin Ratio 1.1; Alkaline Phosphatase 75 U/L (38-126); Anion Gap 6 mmol/L; Basophils % (A) 0 %; Blood Urea Nitrogen 5 mg/dL (7-17); Calcium 8.5 mg/dL (8.4-10.2); Carbon Dioxide 21 mmol/L (22-30); Chloride 113 mmol/L (98-107); Eosinophils % (A) 1 %; Globulin 2.5 g/dL; Glucose 84 mg/dL (74-99); HCT 30.4 % (34.0-46.0); HGB 10.2 gm/dL (11.4-16.0); Lymphocytes # (A) 1.3 k/uL (1.0-4.8); Lymphocytes % (A) 43 %; MCH 35.7 pg (25.0-35.0); MCHC 33.4 g/dL (31.0-37.0); MCV 106.8 fL (80.0-100.0); Macrocytosis Moderate; Magnesium 2.2 mg/dL (1.6-2.3); Mean Platelet Volume 8.5; Monocytes # (A) 0.2 k/uL (0-1.0); Monocytes % (A) 5 %; Neutrophils # (A) 1.5 k/uL (1.3-7.7); Neutrophils % (A) 48 %; Non-African American GFR(CKD) 71 (>60 ml/min/1.73 sqM); Phosphorus 3.3 mg/dL (2.5-4.5); Potassium 3.4 mmol/L (3.5-5.1); RBC 2.85 m/uL (3.80-5.40); Sodium 140 mmol/L (137-145); Total Bilirubin 0.2 mg/dL (0.2-1.3); Total Protein 5.2 g/dL (6.3-8.2); WBC 3.1 k/uL (3.8-10.6)
[2021-12-18] MEDS ORDERED: POTASSIUM CHLORIDE ER 10 MEQ TAB.ER.PRT PO SCH (09:00)
[2021-12-18] MEDS: POTASSIUM CHLORIDE ER 10 MEQ TAB.ER.PRT PO SCH ×2 (09:30→12:10)
[2021-12-18] MEDS: DEXTROSE 5%-0.45% NACL 1,000 ML IV SCH (09:30)
[2021-12-18] MEDS: FAMOTIDINE 20 MG/2 ML VIAL IV SCH ×2 (09:30→21:51)
[2021-12-18 11:02] LABS: Platelet Count 99 k/uL (150-450)
--- NOTE | 2021-12-18 13:13 | P.PN ---
Subjective Progress Note Date: 12/18/21 This is a 62 year old female with medical history of bladder cancer and stomach cancer currently under the care of oncology and had recently undergone chemotherapy did have nausea vomiting diarrhea post. Last chemo treatment was last monday. For the last 5 days apteint has been unable to tolerate oral intake. Once food hits her throat she has issues with regurgitation. She is unsure whether she has had dark stools. Denies hematemesis, coffee grounds, denies abdominal pain. Denies nausea. She does have some white coating on her tongue and suspect this is some mucositis and nystatin swish will be added. White count 7.2 on admisson and also low sodium of 134 and potassium 3.0, patient does have some mild acute kidney injury 1.10 secondary to poor oral intake and dehydration. Patient presented with blood pressure of 101/79 and did receive 2 L fluid bolus and maintenance fluids of 130 mls per hour started in the emergency room. This morning patients blood pressure is currently 80/50 and repeat hemoglobin found to be 9.1. Drop in hemoglobin possibly diluational however will check an abdominal pelvis CT without contrast to further evaluate for a possible bleed and patient received an additional fluid bolus with improved of blood pressure to 100 systolic. Hematology team has been placed on consult for evaluation. They would like CT angiography abdomen pelvis which has been performed showing no evidence for gastrointestinal hemorrhage. There is suspected tumor recurrence on pelvis decreased in size from prior imaging. There is circumferential wall thickening and multiple bowel loops in the pelvis near anastomotic sites possible colitis. There is ileal conduit with no urinary bladder. Hepatic steatosis. There is distal abdominal fusiform measuring 3.1 cm stable from december of 2020. Patient admitted with hydration and will be treated symptomatically. Speech therapy consultation requested. 12/18/2021 Patient evaluated on medical floor today. She reports overall feeling better. Tolerating some clear liquid diet without issues with regurgitation. Denies nausea, vomiting. No diarrhea overnight. Hemoglobin today is 10.2, platelet count 99. Potassium now 3.4 and she is receiving electrolyte replacement. BUN 5, creatinine 0.87. Magnesium improved to 2.2. Pending speech therapy consultation. Urine sample showing cloudy urine with positive nitrates, large leukocyte esterase. Patient does have ilieal conduit and no urinary bladder. Difficult to exclude UTI for this reason empiric antibiotics will be started and pending urine culture to finalize. Continue IV fluids. Review of Systems Constitutional: Reports fatigue denied any fever. Cardio vascular: denied any chest pain, palpitations Gastrointestinal: denied any nausea, vomiting, diarrhea Pulmonary: Denied any shortness of breath cough Neurologic denied any new focal deficits All inpatient medications were reviewed and appropriate changes in these medications as dictated in the interval history and assessment and plan. PHYSICAL EXAMINATION: GENERAL: The patient is alert and oriented x2-3, not in any acute distress. Well developed, well nourished. Appears pale. HEENT: Pupils are round and equally reacting to light. EOMI. No scleral icterus. No conjunctival pallor. Normocephalic, atraumatic. No pharyngeal erythema. No thyromegaly. CARDIOVASCULAR: S1 and S2 present. No murmurs, rubs, or gallops. PULMONARY: Chest is clear to auscultation, no wheezing or crackles. ABDOMEN: Soft, nontender, nondistended, normoactive bowel sounds. No palpable organomegaly. MUSCULOSKELETAL: No joint swelling or deformity. EXTREMITIES: No cyanosis, clubbing, or pedal edema. NEUROLOGICAL: Gross neurological examination did not reveal any focal deficits. Aphasic at baseline. Generalized weakness. No focal deficits. SKIN: No rashes. Assessment and plan Assessment -Nausea vomiting diarrhea secondary to chemotherapy there is also evidence for colitis on CT imaging. C.dif requested -Poor oral intake suspect secondary to recent chemo treatment with mucosal irritation and mucositis and patient will be started on nystatin swish. Speech therapy has been consulted as patient is unable to keep down solid food, has issues with regurgitation. Pending improvement patient may possibly need barium swallow versus EGD. Noted there are no GI services available in the hospital if patient requires GI services may need transfer to tertiary center. She is tolerating clear liquid diet and symptoms are improving with the addition of nystation. -History bladder cancer with removal of urinary bladder patient has ileal c onduit with urostomy bag. 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 -Carotid artery stenosis with 50% stenosis right ICA and 70% stenosis left ICA -History COPD -Chronic daily nicotinue use 1 pack per day counseled on cessation -GI prophylaxis -DVT prophylaxis Full Code Patient will be continued on IV fluids with close monitoring, speech therapy has been consulted and pending evaluation. Tolerating clear liquid diet. Continue to replace electrolytes as needed and monitor with repeat BMP tomorrow. Nystatin swish has been added. Empiric antibiotic coverage pending urine culture. PT/OT requested. The impression and plan of care has been dictated by Sanam Chacko, Nurse Practitioner as directed. Dr. Bella MD I have performed a history and physical examination and medical decision making of this patient, discussed the same with the dictator, and agree with the dictators assessment and plan as written, documented as a scribe. Based on total visit time, I have performed more than 50% of this visit. Objective - Vital Signs Vital signs: Vital Signs Temp 98.1 F 12/18/21 07:00 Pulse 71 12/18/21 07:00 Resp 16 12/18/21 07:00 BP 92/59 12/18/21 07:00 Pulse Ox 91 L 12/18/21 07:00 FiO2 Intake & Output 12/17/21 12/18/21 12/18/21 18:59 06:59 18:59 Intake Total 1480 Output Total 2400 Balance -920 Intake: Intake, IV Titration 1480 Amount Dextrose 5%-0.45% NaCl 1, 980 000 ml @ 70 mls/hr IV . [id number] [facility] Rx#:[id number] Sodium Chloride 0.9% 500 500 ml 500 ml @ 999 mls/hr IV .Q31M ONE Rx#:[id number] Output: Urine 2400 Other: Voiding Method Indwelling Catheter - Labs CBC & Chem 7: 12/18/21 07:49 12/18/21 07:49 Labs: Abnormal Lab Results - Last 24 Hours (Table) 12/17/21 12/17/21 12/18/21 Range/Units 12:36 21:21 07:49 WBC 3.1 L (3.8-10.6) k/uL RBC 2.85 L (3.80-5.40) m/uL Hgb 10.2 L (11.4-16.0) gm/dL Hct 30.4 L (34.0-46.0) % MCV 106.8 H (80.0-100.0) fL MCH 35.7 H (25.0-35.0) pg Plt Count 99 L (150-450) k/uL Potassium (3.5-5.1) mmol/L Chloride 111 H (98-107) mmol/L Carbon Dioxide 20 L (22-30) mmol/L BUN (7-17) mg/dL Calcium 8.0 L (8.4-10.2) mg/dL Total Protein (6.3-8.2) g/dL Albumin (3.5-5.0) g/dL Urine Appearance Cloudy H (Clear) Urine Nitrite Positive H (Negative) Ur Leukocyte Esterase Large H (Negative) Urine RBC 7 H (0-5) /hpf Urine WBC 63 H (0-5) /hpf Amorphous Sediment Rare H (None) /hpf Urine Bacteria Occasional H (None) /hpf Urine Mucus Rare H (None) /hpf 12/18/21 Range/Units 07:49 WBC (3.8-10.6) k/uL RBC (3.80-5.40) m/uL Hgb (11.4-16.0) gm/dL Hct (34.0-46.0) % MCV (80.0-100.0) fL MCH (25.0-35.0) pg Plt Count (150-450) k/uL Potassium 3.4 L (3.5-5.1) mmol/L Chloride 113 H (98-107) mmol/L Carbon Dioxide 21 L (22-30) mmol/L BUN 5 L (7-17) mg/dL Calcium (8.4-10.2) mg/dL Total Protein 5.2 L (6.3-8.2) g/dL Albumin 2.7 L (3.5-5.0) g/dL Urine Appearance (Clear) Urine Nitrite (Negative) Ur Leukocyte Esterase (Negative) Urine RBC (0-5) /hpf Urine WBC (0-5) /hpf Amorphous Sediment (None) /hpf Urine Bacteria (None) /hpf Urine Mucus (None) /hpf Microbiology - Last 24 Hours (Table) 12/17/21 21:21 Urine Culture - Preliminary Urine,Voided Assessment and Plan Time with Patient: Less than 30
[2021-12-18] MEDS: SODIUM CHLORIDE 0.9% 1,000 ML IV SCH (14:08)
[2021-12-18] MEDS: MAG HYDROX/AL HYDROX/SIMETH 30 ML, LIDOCAINE VISCOUS 2% 30 ML, NYSTATIN 100,000 UNIT/ML... PO SCH ×6 (15:21→21:51)
[2021-12-18] MEDS ORDERED: CHLORHEXIDINE GLUCONATE 15 ML CUP MUCOUS MEM SCH (21:00)
[2021-12-18] MEDS: QUEtiapine 25 MG TAB PO SCH (21:51)
[2021-12-19] MEDS: DEXTROSE 5%-0.45% NACL 1,000 ML IV SCH ×2 (00:42→13:47)
[2021-12-19] MEDS: SODIUM CHLORIDE 0.9% 1,000 ML IV SCH ×2 (03:47→14:45)
[2021-12-19] MEDS: DIVALPROEX SPRINKLE 125 MG CAP.SPRINK PO SCH ×2 (08:58→22:06)
[2021-12-19] MEDS: HEPARIN SODIUM,PORCINE/PF 5,000 UNIT/0.5 ML SYRINGE SQ SCH ×2 (08:58→22:07)
[2021-12-19] MEDS: ATORVASTATIN 80 MG TAB PO SCH (08:58)
[2021-12-19] MEDS: MAG HYDROX/AL HYDROX/SIMETH 30 ML, LIDOCAINE VISCOUS 2% 30 ML, NYSTATIN 100,000 UNIT/ML... PO SCH ×9 (08:59→22:07)
[2021-12-19] MEDS: FAMOTIDINE 20 MG/2 ML VIAL IV SCH ×2 (10:58→22:07)
--- NOTE | 2021-12-19 13:19 | P.PN ---
Subjective Progress Note Date: 12/19/21 This is a 62 year old female with medical history of bladder cancer and stomach cancer currently under the care of oncology and had recently undergone chemotherapy did have nausea vomiting diarrhea post. Last chemo treatment was last monday. For the last 5 days apteint has been unable to tolerate oral intake. Once food hits her throat she has issues with regurgitation. She is unsure whether she has had dark stools. Denies hematemesis, coffee grounds, denies abdominal pain. Denies nausea. She does have some white coating on her tongue and suspect this is some mucositis and nystatin swish will be added. White count 7.2 on admisson and also low sodium of 134 and potassium 3.0, patient does have some mild acute kidney injury 1.10 secondary to poor oral intake and dehydration. Patient presented with blood pressure of 101/79 and did receive 2 L fluid bolus and maintenance fluids of 130 mls per hour started in the emergency room. This morning patients blood pressure is currently 80/50 and repeat hemoglobin found to be 9.1. Drop in hemoglobin possibly diluational however will check an abdominal pelvis CT without contrast to further evaluate for a possible bleed and patient received an additional fluid bolus with improved of blood pressure to 100 systolic. Hematology team has been placed on consult for evaluation. They would like CT angiography abdomen pelvis which has been performed showing no evidence for gastrointestinal hemorrhage. There is suspected tumor recurrence on pelvis decreased in size from prior imaging. There is circumferential wall thickening and multiple bowel loops in the pelvis near anastomotic sites possible colitis. There is ileal conduit with no urinary bladder. Hepatic steatosis. There is distal abdominal fusiform measuring 3.1 cm stable from december of 2020. Patient admitted with hydration and will be treated symptomatically. Speech therapy consultation requested. 12/18/2021 Patient evaluated on medical floor today. She reports overall feeling better. Tolerating some clear liquid diet without issues with regurgitation. Denies nausea, vomiting. No diarrhea overnight. Hemoglobin today is 10.2, platelet count 99. Potassium now 3.4 and she is receiving electrolyte replacement. BUN 5, creatinine 0.87. Magnesium improved to 2.2. Pending speech therapy consultation. Urine sample showing cloudy urine with positive nitrates, large leukocyte esterase. Patient does have ilieal conduit and no urinary bladder. Difficult to exclude UTI for this reason empiric antibiotics will be started and pending urine culture to finalize. Continue IV fluids. 12/19/2021 Patient continues to be monitored on medical floor. She reports overall feeling better. Patient has been switched to cools solution with nystatin and she reports this is helping. She has been tolerating some clear liquid diet and can advance to full liquid as tolerated. No further episodes of regurgitation. She has been up ambulating to the restroom. Patient is currently on empiric coverage with ceftriaxone and urine culture is showing some gram negative bacilli. Patient recently had urine culture showing burris sensitive enterococcus and also staphylococcus epidermidis with resistance. She has also had recent UTI with klebsiella also pansensitivie. We will continue ceftriaxone for now and patient will discharge on short oral course. She does follow with Lakeisha from speech therapy three times a week. Recommend to continue as previous. Currently pending PT/OT evaluation. She does complain of diffuse generalized weakness. Labs today showing white count of 3.1, hgb of 10.2, platelet count of 99. Sodium 140, potassium 3.4 which has been replaced. C.Dif negative. Patient remains afebrile, blood pressure 94/62, heart rate 60. Review of Systems Constitutional: Reports fatigue denied any fever. Cardio vascular: denied any chest pain, palpitations Gastrointestinal: denied any nausea, vomiting, diarrhea Pulmonary: Denied any shortness of breath cough Neurologic denied any new focal deficits All inpatient medications were reviewed and appropriate changes in these medications as dictated in the interval history and assessment and plan. PHYSICAL EXAMINATION: GENERAL: The patient is alert and oriented x2-3, not in any acute distress. Well developed, well nourished. Appears pale. HEENT: Pupils are round and equally reacting to light. EOMI. No scleral icterus. No conjunctival pallor. Normocephalic, atraumatic. No pharyngeal erythema. No thyromegaly. CARDIOVASCULAR: S1 and S2 present. No murmurs, rubs, or gallops. PULMONARY: Chest is clear to auscultation, no wheezing or crackles. ABDOMEN: Soft, nontender, nondistended, normoactive bowel sounds. No palpable organomegaly. MUSCULOSKELETAL: No joint swelling or deformity. EXTREMITIES: No cyanosis, clubbing, or pedal edema. NEUROLOGICAL: Gross neurological examination did not reveal any focal deficits. Aphasic at baseline. Generalized weakness. No focal deficits. SKIN: No rashes. Assessment and plan Assessment -Nausea vomiting diarrhea secondary to chemotherapy there is also evidence for colitis on CT imaging. C.dif is negative. This is most likely secondary to recent chemotherapy. -Poor oral intake suspect secondary to recent chemo treatment with mucosal irritation and mucositis and patient will be started on nystatin swish. Speech therapy has been consulted as patient is unable to keep down solid food, has issues with regurgitation. Pending improvement patient may possibly need barium swallow versus EGD. She is tolerating clear liquid diet and symptoms are improving with the addition of nystation/cools solution. Diet can be advanced to full liquid as tolerated. -History bladder cancer with removal of urinary bladder patient has ileal conduit with urostomy bag. 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 -Carotid artery stenosis with 50% stenosis right ICA and 70% stenosis left ICA -History COPD -Chronic daily nicotinue use 1 pack per day counseled on cessation -GI prophylaxis -DVT prophylaxis Full Code Patient will be continued on IV fluids with close monitoring, speech therapy has been consulted and pending evaluation. Tolerating clear liquid diet can advance to full liquid if tolerating. Continue to replace electrolytes as needed and monitor with repeat BMP tomorrow. Nystatin swish has been added. Empiric antibiotic coverage pending urine culture. PT/OT requested. Continue all other supportive care. The impression and plan of care has been dictated by Sanam Chacko, Nurse Practitioner as directed. Dr. Bella MD I have performed a history and physical examination and medical decision making of this patient, discussed the same with the dictator, and agree with the dictators assessment and plan as written, documented as a scribe. Based on total visit time, I have performed more than 50% of this visit. Objective - Vital Signs Vital signs: Vital Signs Temp 98.0 F 12/19/21 07:56 Pulse 60 12/19/21 07:56 Resp 16 12/19/21 07:56 BP 94/62 12/19/21 07:56 Pulse Ox 96 12/19/21 07:56 FiO2 Intake & Output 12/18/21 12/19/21 12/19/21 18:59 06:59 18:59 Intake Total 650 Output Total 600 Balance 50 Intake: Intake, IV Titration 650 Amount Sodium Chloride 0.9% 1, 600 000 ml @ 75 mls/hr IV . [id number] [facility] Rx#:[id number] cefTRIAXone 2 gm In 50 Sodium Chloride 0.9% 50 ml @ 100 mls/hr IVPB Q24HR [facility] Rx#:[id number] Output: Urine 600 Other: Voiding Method Ileal Conduit (Left) Ileal Conduit (Left) # Voids 2 # Bowel Movements 2 1 - Labs CBC & Chem 7: 12/18/21 07:49 12/18/21 07:49 Labs: Microbiology - Last 24 Hours (Table) 12/17/21 21:21 Urine Culture - Preliminary Urine,Voided Gram Neg Bacilli Assessment and Plan Time with Patient: Less than 30
[2021-12-19] MEDS: QUEtiapine 25 MG TAB PO SCH (22:06)
[2021-12-20] MEDS: SODIUM CHLORIDE 0.9% 1,000 ML IV SCH ×2 (05:49→18:11)
[2021-12-20] MEDS: FAMOTIDINE 20 MG/2 ML VIAL IV SCH ×2 (09:52→21:31)
[2021-12-20] MEDS: HEPARIN SODIUM,PORCINE/PF 5,000 UNIT/0.5 ML SYRINGE SQ SCH ×2 (09:54→21:32)
[2021-12-20] MEDS: ATORVASTATIN 80 MG TAB PO SCH (09:54)
[2021-12-20] MEDS: DIVALPROEX SPRINKLE 125 MG CAP.SPRINK PO SCH ×2 (09:54→21:31)
[2021-12-20] MEDS: MAG HYDROX/AL HYDROX/SIMETH 30 ML, LIDOCAINE VISCOUS 2% 30 ML, NYSTATIN 100,000 UNIT/ML... PO SCH ×9 (09:55→21:32)
--- NOTE | 2021-12-20 11:51 | P.CONS ---
History of Present Illness - Reason for Consult Consult date: 12/20/21 Dysphagia Requesting physician: Elizabeth De Luna - Chief Complaint Weakness, nausea and vomiting - History of Present Illness This is 61-year-old female with a past medical history of CVA with persistent expressive aphasia, bladder and stomach cancer with last chemo on 12/15/2021 who had presented to the emergency department for weakness, fatigue, nausea and vomiting. She follows with Dr. Robledo from oncology, she has undergone chemotherapy as well as in June 2020 undergoing anterior exentration with ilial loop diversion and sigmoid colon resection. Patient was brought in with feeling increasingly weak, unable to keep any food down for 5 days prior to hospitalization. She denies any hematemesis or coffee-ground emesis. Since she's been in the hospital she had electrolytes replaced, she's not had any other signs of vomiting. She has had some diarrhea. C. diff testing was completed and negative. She denies any previous history of EGD, peptic ulcer disease or GERD. No current labs available. CTA abdomen and pelvis showed no evidence of gastrointestinal hemorrhage, suspect tumor recurrence in the pelvis. Circumferential wall thickening and multiple loops of bowel in the pelvis and anastomotic site correlate for colitis. Patient currently being treated for thrush. She was seen and evaluated by speech therapy with normal oropharyngeal swallow. There was no concerns for silent aspiration. They just recommended chopped diet related to missing dentition. Labs 12/18/2021: WBC 3.1 hemoglobin 10 hematocrit 30 platelet count 98,000 sodium 140 potassium 3.4 BUN 5 creatinine 0.8 total bilirubin 0.2 AST 33 ALT 29 alkaline phosphatase 75 C. diff negative Review of Systems REVIEW OF SYSTEMS: CARDIOPULMONARY: No chest pain or shortness of breath. Gastrointestinal: No abdominal pain. Nausea and vomiting for 5 days prior to coming to the emergency department. Symptoms now resolved. No hematemesis, coffee-ground emesis. Nonbloody diarrhea. No rectal bleeding, or melena. GENITOURINARY: No dysuria or hematuria. MUSCULOSKELETAL: Reports normal range of motion. SKIN: No rashes. No jaundice. ENDOCRINE: No chills, fevers. No excessive weight gain or loss. No polydipsia or polyuria. PSYCHIATRIC: Unremarkable. NEUROLOGY: No change in mental status. Denies dizziness, headache. ENT: Vision unremarkable. CONSTITUTIONAL: Weight loss, nausea vomiting. No fever, no chills. Past Medical History Past Medical History: Cancer, COPD Additional Past Medical History / Comment(s): bladder CA, ileostomy, "something in the abdomen that they are trying to shrink" History of Any Multi-Drug Resistant Organisms: None Reported Past Surgical History: Bladder Surgery Additional Past Surgical History / Comment(s): ileostomy 06/2020 at [facility] in [facility], fatty tumor removed from rt leg, Past Anesthesia/Blood Transfusion Reactions: No Reported Reaction Past Psychological History: No Psychological Hx Reported Smoking Status: Current every day smoker Past Alcohol Use History: Rare Past Drug Use History: None Reported - Past Family History Brother(s) Family Medical History: Cancer Sister(s) Family Medical History: Cancer, Deep Vein Thrombosis (DVT) Medications and Allergies Home Medications Medication Instructions Recorded Confirmed Type Omeprazole [PriLOSEC] 20 mg PO DAILY 09/22/21 12/17/21 History Ondansetron [Zofran] 4 mg PO Q8HR PRN 09/22/21 12/17/21 History Atorvastatin [Lipitor] 80 mg PO DAILY 12/17/21 12/17/21 History Divalproex Sodium [Depakote] 125 mg PO BID 12/17/21 12/17/21 History Metoclopramide [Reglan] 5 mg PO ACHS 12/17/21 12/17/21 History QUEtiapine [SEROquel] 12.5 mg PO HS 12/17/21 12/17/21 History Allergies Allergy/AdvReac Type Severity Reaction Status Date / Time codeine Allergy Itching Verified 12/17/21 09:28 Physical Exam Vitals: Vital Signs Temp Pulse Resp BP Pulse Ox 12/20/21 07:54 98.3 F 65 16 94/62 95 12/20/21 02:00 97.4 F L 68 17 94/63 94 L 12/19/21 20:00 97.5 F L 65 16 108/71 97 12/19/21 14:00 98.1 F 75 16 104/65 95 Intake and Output 12/19/21 12/20/21 12/20/21 22:59 06:59 14:59 Intake Total 750 950 Output Total 1000 500 Balance -250 450 Intake: IV 750 900 Sodium Chloride 0.9% 1, 750 900 000 ml @ 75 mls/hr IV . [id number] [facility] Rx#:[id number] Oral 50 Output: Urine 1000 500 Other: # Bowel Movements 2 General appearance: The patient is alert, oriented, appears in no acute distress. HET: Head is normocephalic and atraumatic. Conjunctiva pink. Sclera anicteric. Neck: Supple without lymphadenopathy. Trachea midline. Heart: S1 S2. Regular rate and rhythm. Lungs: Clear to auscultation. Abdomen: Soft, nontender, nondistended with bowel sounds. No guarding or rigidity. Skin: No rashes. No jaundice. Extremities: Normal skin color and turgor. No pedal edema. Neurological: Expressive aphasia, alert and oriented. Results CBC & Chem 7: 12/20/21 11:29 12/20/21 11:29 Labs: Microbiology - Last 24 Hours (Table) 12/17/21 21:21 Urine Culture - Preliminary Urine,Voided Gram Neg Bacilli Comments: CT angiogram abdomen and pelvis: No evidence of gastrointestinal hemorrhage. Suspect tumor recurrence in the pelvis seen on prior 08/18/2021 has decreased in size when comparing to prior imaging may represent treatment changes. Co rrelation and attention on follow-up PET/CT recommended. Circumferential wall thickening and multiple loops of bowel in the pelvis near anastomotic sites correlate for colitis. Surgically absent plantar with ileal conduit. Hepatic steatosis. 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 Stable from 12/21/2020 Assessment and Plan (1) Nausea and vomiting Narrative/Plan: 61-year-old female with a history of stomach cancer and bladder cancer presented to the emergency department 4 days ago with complaints of nausea vomiting, generalized weakness. She is currently undergoing chemotherapy. Has a history of previous sigmoid colon resection and ileal conduit in 2020. Presented to the emergency department with ongoing nausea and vomiting. Gastroenterology was consulted for dysphagia. Patient currently denying any difficulty with swallowing and no nausea or vomiting. No previous EGD. Continue antiemetics as needed. Speech therapy consultation reviewed, no concerns with oropharyngeal swallow or silent aspiration. Diet as tolerated. No plans on endoscopic evaluation. Current Visit: Yes Status: Acute Code(s): R11.2 - NAUSEA WITH VOMITING, UNSPECIFIED SNOMED Code(s): 77223044 (2) Hypokalemia Current Visit: Yes Status: Acute Code(s): E87.6 - HYPOKALEMIA SNOMED Code(s): 37332796 (3) Diarrhea Narrative/Plan: C-diff negative, antidiarrheals as needed Current Visit: No Status: Acute Code(s): R19.7 - DIARRHEA, UNSPECIFIED SNOMED Code(s): 31095009 Plan: 1. Continue symptomatic supportive care 2. Diet as tolerated, speech therapy recommending chopped diet Due to missing dentition 3. Antiemetics as needed 4. Protonix 40 mg GI prophylaxis 5. No plan for an endoscopic evaluation Thank you for this consultation, we'll continue to follow. Dr. Davion Krueger I agree with the dictator's note, documented as a scribe by Jocelyn Lancaster.
[2021-12-20 12:24] LABS: ALT 29 U/L (4-34); AST 32 U/L (14-36); African American GFR (CKD) 70 (>60 ml/min/1.73 sqM); Albumin 2.9 g/dL (3.5-5.0); Albumin/Globulin Ratio 1.1; Alkaline Phosphatase 81 U/L (38-126); Anion Gap 5 mmol/L; Blood Urea Nitrogen 4 mg/dL (7-17); Calcium 8.6 mg/dL (8.4-10.2); Carbon Dioxide 22 mmol/L (22-30); Chloride 114 mmol/L (98-107); Globulin 2.6 g/dL; Glucose 99 mg/dL (74-99); Non-African American GFR(CKD) 61 (>60 ml/min/1.73 sqM); Potassium 3.7 mmol/L (3.5-5.1); Sodium 141 mmol/L (137-145); Total Bilirubin 0.1 mg/dL (0.2-1.3); Total Protein 5.5 g/dL (6.3-8.2)
[2021-12-20 12:57] LABS: Basophils % (A) 0 %; Eosinophils % (A) 1 %; HCT 30.6 % (34.0-46.0); HGB 10.3 gm/dL (11.4-16.0); Hypochromasia Slight; Lymphocytes # (A) 1.3 k/uL (1.0-4.8); Lymphocytes % (A) 42 %; MCH 36.2 pg (25.0-35.0); MCHC 33.7 g/dL (31.0-37.0); MCV 107.5 fL (80.0-100.0); Macrocytosis Moderate; Mean Platelet Volume 8.2; Monocytes # (A) 0.2 k/uL (0-1.0); Monocytes % (A) 6 %; Neutrophils # (A) 1.5 k/uL (1.3-7.7); Neutrophils % (A) 49 %; Platelet Count 98 k/uL (150-450); RBC 2.84 m/uL (3.80-5.40); RDW 14.6 % (11.5-15.5)
[2021-12-20] MEDS: MIDODRINE 5 MG TAB PO SCH (18:10)
--- NOTE | 2021-12-20 19:20 | P.PN ---
Subjective Progress Note Date: 12/20/21 Principal diagnosis: dysphagia In f/u today pt is agreeing that the fluids oatmeal she tried this am have stayed down, no regurgitation. She is feeling better, but still pretty weak. Objective - Vital Signs Vital signs: Vital Signs Temp 98.0 F 12/20/21 14:00 Pulse 71 12/20/21 14:00 Resp 14 12/20/21 14:00 BP 100/67 12/20/21 14:00 Pulse Ox 93 L 12/20/21 14:00 FiO2 Intake & Output 12/20/21 12/20/21 12/21/21 06:59 18:59 06:59 Intake Total 950 1340 Output Total 500 1575 Balance 450 -235 Intake: IV 900 600 Sodium Chloride 0.9% 1, 900 600 000 ml @ 75 mls/hr IV . [id number] [facility] Rx#:[id number] Oral 50 740 Output: Urine 500 1575 Other: # Bowel Movements 2 - Constitutional General appearance: Present: average body habitus, cooperative, no acute distress - EENT Eyes: Present: anicteric sclerae ENT: Present: hard of hearing - Respiratory Respiratory: bilateral: CTA - Cardiovascular Heart sounds: normal: S1, S2 - Gastrointestinal General gastrointestinal: Present: normal bowel sounds, soft - Musculoskeletal Musculoskeletal: Present: generalized weakness - Psychiatric Psychiatric Comment(s): pt has expressive aphasia but, it is apparent the way she looks at you and if you ask her yes/no questions that she understands what is being said and what is going on Psychiatric: Present: A&O x's 3, appropriate affect, intact judgment & insight - Labs CBC & Chem 7: 12/20/21 11:29 12/20/21 11:29 Labs: Abnormal Lab Results - Last 24 Hours (Table) 12/20/21 12/20/21 Range/Units 11:29 11:29 WBC 3.0 L (3.8-10.6) k/uL RBC 2.84 L (3.80-5.40) m/uL Hgb 10.3 L (11.4-16.0) gm/dL Hct 30.6 L (34.0-46.0) % MCV 107.5 H (80.0-100.0) fL MCH 36.2 H (25.0-35.0) pg Plt Count 98 L (150-450) k/uL Chloride 114 H (98-107) mmol/L BUN 4 L (7-17) mg/dL Total Bilirubin 0.1 L (0.2-1.3) mg/dL Total Protein 5.5 L (6.3-8.2) g/dL Albumin 2.9 L (3.5-5.0) g/dL Microbiology - Last 24 Hours (Table) 12/17/21 21:21 Urine Culture - Preliminary Urine,Voided Gram Neg Bacilli Enterococcus faecalis - Imaging and Cardiology CT scan - pelvis: report reviewed MRI - abdomen: report reviewed Assessment and Plan (1) Dysphagia Current Visit: Yes Status: Acute Priority: High Code(s): R13.10 - DYSPHAGIA, UNSPECIFIED SNOMED Code(s): 68040242 (2) Dehydration Current Visit: Yes Status: Acute Priority: High Code(s): E86.0 - DEHYDRATION SNOMED Code(s): 38712810 (3) Weakness Current Visit: Yes Status: Acute Priority: High Code(s): R53.1 - WEAKNESS SNOMED Code(s): 36201572 (4) Bladder cancer Current Visit: No Status: Chronic Priority: Medium Code(s): C67.9 - MALIGNANT NEOPLASM OF BLADDER, UNSPECIFIED SNOMED Code(s): 905884836 Plan: CT AP with GI bleed protocol ordered, no acute bleeding, hgb stable. Pt today reporting that liquids and some oatmeal have stayed down, no regurgitation or vomiting. Pt has had swallow eval with speech therapy, no aspiration. GI assessed pt and not plans for endoscopy at this time. Pt has requested a break from treatment until pt has had a chance to regain some strength. I will adjust pt appt in the ofc.
[2021-12-20] MEDS: QUEtiapine 25 MG TAB PO SCH (21:32)
[2021-12-21] MEDS: MIDODRINE 5 MG TAB PO SCH ×2 (06:54→12:30)
[2021-12-21 07:39] VITALS: BP 90/57; PULSE 61; RESP 16; TEMP 98.1
[2021-12-21] MEDS: ATORVASTATIN 80 MG TAB PO SCH (08:34)
[2021-12-21] MEDS: DIVALPROEX SPRINKLE 125 MG CAP.SPRINK PO SCH (08:34)
[2021-12-21] MEDS: FAMOTIDINE 20 MG/2 ML VIAL IV SCH (08:35)
[2021-12-21] MEDS: HEPARIN SODIUM,PORCINE/PF 5,000 UNIT/0.5 ML SYRINGE SQ SCH (08:35)
[2021-12-21] MEDS: MAG HYDROX/AL HYDROX/SIMETH 30 ML, LIDOCAINE VISCOUS 2% 30 ML, NYSTATIN 100,000 UNIT/ML... PO SCH ×3 (08:39)
--- NOTE | 2021-12-21 09:20 | P.PN ---
Subjective Progress Note Date: 12/20/21 This is a 62 year old female with medical history of bladder cancer and stomach cancer currently under the care of oncology and had recently undergone chemotherapy did have nausea vomiting diarrhea post. Last chemo treatment was last monday. For the last 5 days apteint has been unable to tolerate oral intake. Once food hits her throat she has issues with regurgitation. She is unsure whether she has had dark stools. Denies hematemesis, coffee grounds, denies abdominal pain. Denies nausea. She does have some white coating on her tongue and suspect this is some mucositis and nystatin swish will be added. White count 7.2 on admisson and also low sodium of 134 and potassium 3.0, patient does have some mild acute kidney injury 1.10 secondary to poor oral intake and dehydration. Patient presented with blood pressure of 101/79 and did receive 2 L fluid bolus and maintenance fluids of 130 mls per hour started in the emergency room. This morning patients blood pressure is currently 80/50 and repeat hemoglobin found to be 9.1. Drop in hemoglobin possibly diluational however will check an abdominal pelvis CT without contrast to further evaluate for a possible bleed and patient received an additional fluid bolus with improved of blood pressure to 100 systolic. Hematology team has been placed on consult for evaluation. They would like CT angiography abdomen pelvis which has been performed showing no evidence for gastrointestinal hemorrhage. There is suspected tumor recurrence on pelvis decreased in size from prior imaging. There is circumferential wall thickening and multiple bowel loops in the pelvis near anastomotic sites possible colitis. There is ileal conduit with no urinary bladder. Hepatic steatosis. There is distal abdominal fusiform measuring 3.1 cm stable from december of 2020. Patient admitted with hydration and will be treated symptomatically. Speech therapy consultation requested. 12/18/2021 Patient evaluated on medical floor today. She reports overall feeling better. Tolerating some clear liquid diet without issues with regurgitation. Denies nausea, vomiting. No diarrhea overnight. Hemoglobin today is 10.2, platelet count 99. Potassium now 3.4 and she is receiving electrolyte replacement. BUN 5, creatinine 0.87. Magnesium improved to 2.2. Pending speech therapy consultation. Urine sample showing cloudy urine with positive nitrates, large leukocyte esterase. Patient does have ilieal conduit and no urinary bladder. Difficult to exclude UTI for this reason empiric antibiotics will be started and pending urine culture to finalize. Continue IV fluids. 12/19/2021 Patient continues to be monitored on medical floor. She reports overall feeling better. Patient has been switched to cools solution with nystatin and she reports this is helping. She has been tolerating some clear liquid diet and can advance to full liquid as tolerated. No further episodes of regurgitation. She has been up ambulating to the restroom. Patient is currently on empiric coverage with ceftriaxone and urine culture is showing some gram negative bacilli. Patient recently had urine culture showing burris sensitive enterococcus and also staphylococcus epidermidis with resistance. She has also had recent UTI with klebsiella also pansensitivie. We will continue ceftriaxone for now and patient will discharge on short oral course. She does follow with Lakeisha from speech therapy three times a week. Recommend to continue as previous. Currently pending PT/OT evaluation. She does complain of diffuse generalized weakness. Labs today showing white count of 3.1, hgb of 10.2, platelet count of 99. Sodium 140, potassium 3.4 which has been replaced. C.Dif negative. Patient remains afebrile, blood pressure 94/62, heart rate 60. 12/20/2021 Patient overall doing well. She reports improvement in symptoms less throat irritation and also tolerating full liquid diet she can advance as tolerated. Continues on Cools oral with nystation. Has not had any food regurgitation. Has been evaluated by speech therapy and also GI services. Labs today showing white count 3.0 and also hgb of 10.3. Potassium 3.7 today. Has been evaluated by physical therapy and recommends home with home care. Patient also has urine culture showing enterococcus burris sensitive which is not clinically significant there was also gram negative bacilli pending microsensitivites on culture for final recommendations. Although she has been adequately treated for UTI with IV ceftriaxone while inpatient. Patient will need require antibiotics on discharge. Anticipate discharge tomorrow. Blood pressures in the 90s to low 100s systolic and started on low dose midodrine as well. Review of Systems Constitutional: Reports fatigue denied any fever. Cardio vascular: denied any chest pain, palpitations Gastrointestinal: denied any nausea, vomiting, diarrhea Pulmonary: Denied any shortness of breath cough Neurologic denied any new focal deficits All inpatient medications were reviewed and appropriate changes in these medications as dictated in the interval history and assessment and plan. PHYSICAL EXAMINATION: GENERAL: The patient is alert and oriented x2-3, not in any acute distress. Well developed, well nourished. Appears pale. HEENT: Pupils are round and equally reacting to light. EOMI. No scleral icterus. No conjunctival pallor. Normocephalic, atraumatic. No pharyngeal erythema. No thyromegaly. CARDIOVASCULAR: S1 and S2 present. No murmurs, rubs, or gallops. PULMONARY: Chest is clear to auscultation, no wheezing or crackles. ABDOMEN: Soft, nontender, nondistended, normoactive bowel sounds. No palpable organomegaly. MUSCULOSKELETAL: No joint swelling or deformity. EXTREMITIES: No cyanosis, clubbing, or pedal edema. NEUROLOGICAL: Gross neurological examination did not reveal any focal deficits. Aphasic at baseline. Generalized weakness. No focal deficits. SKIN: No rashes. Assessment and plan Assessment -Nausea vomiting diarrhea secondary to chemotherapy there is also evidence for colitis on CT imaging. C.dif is negative. This is most likely secondary to recent chemotherapy. -Poor oral intake suspect secondary to recent chemo treatment with mucosal irritation and mucositis, patient receiving cools/nystatin swish with improvement of symptoms. She has tolerated advanced diet, food regurgitation has resolved and GI services has evaluated with no current plans for endoscopic proc edure. -History bladder cancer with removal of urinary bladder patient has ileal conduit with urostomy bag. 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 -Carotid artery stenosis with 50% stenosis right ICA and 70% stenosis left ICA -History COPD -Chronic daily nicotinue use 1 pack per day counseled on cessation -GI prophylaxis -DVT prophylaxis Full Code Plan Patient will discharge home with home care most likely tomorrow. Continue with nystation/cools and also advance diet as tolerated per recommendations by speech therapy and GI services. Currently on pureed and can advance to chopped diet when patient has her dental appliance in place. Continue to replace electrolytes as needed. Continue all other supportive care. The impression and plan of care has been dictated by Sanam Chacko Nurse Practitioner as directed. Dr. Bella MD I have performed a history and physical examination and medical decision making of this patient, discussed the same with the dictator, and agree with the dictators assessment and plan as written, documented as a scribe. Based on total visit time, I have performed more than 50% of this visit. Objective - Vital Signs Vital signs: Vital Signs Temp 98.3 F 12/20/21 07:54 Pulse 65 12/20/21 07:54 Resp 16 12/20/21 07:54 BP 94/62 12/20/21 07:54 Pulse Ox 95 12/20/21 07:54 FiO2 Intake & Output 12/19/21 12/20/21 12/20/21 18:59 06:59 18:59 Intake Total 750 950 600 Output Total 1000 500 Balance -250 450 600 Intake: IV 750 900 600 Sodium Chloride 0.9% 1, 750 900 600 000 ml @ 75 mls/hr IV . [id number] [facility] Rx#:[id number] Oral 50 Output: Urine 1000 500 Other: Voiding Method Ileal Conduit (Left) # Bowel Movements 1 2 - Labs CBC & Chem 7: 12/20/21 11:29 12/20/21 11:29 Labs: Abnormal Lab Results - Last 24 Hours (Table) 12/20/21 12/20/21 Range/Units 11:29 11:29 WBC 3.0 L (3.8-10.6) k/uL RBC 2.84 L (3.80-5.40) m/uL Hgb 10.3 L (11.4-16.0) gm/dL Hct 30.6 L (34.0-46.0) % MCV 107.5 H (80.0-100.0) fL MCH 36.2 H (25.0-35.0) pg Plt Count 98 L (150-450) k/uL Chloride 114 H (98-107) mmol/L BUN 4 L (7-17) mg/dL Total Bilirubin 0.1 L (0.2-1.3) mg/dL Total Protein 5.5 L (6.3-8.2) g/dL Albumin 2.9 L (3.5-5.0) g/dL Microbiology - Last 24 Hours (Table) 12/17/21 21:21 Urine Culture - Preliminary Urine,Voided Gram Neg Bacilli Enterococcus faecalis
[2021-12-21] MEDS: SODIUM CHLORIDE 0.9% 1,000 ML IV SCH (10:35)
--- NOTE | 2021-12-21 11:41 | P.PN ---
Subjective Progress Note Date: 12/21/21 Principal diagnosis: Dysphagia This is 61-year-old female with a past medical history of CVA with persistent expressive aphasia, bladder and stomach cancer with last chemo on 12/15/2021 who had presented to the emergency department for weakness, fatigue, nausea and vomiting. She follows with Dr. Robledo from oncology, she has undergone chemotherapy as well as in June 2020 undergoing anterior exentration with ilial loop diversion and sigmoid colon resection. Patient was brought in with feeling increasingly weak, unable to keep any food down for 5 days prior to hospitalization. She denies any hematemesis or coffee-ground emesis. Since she's been in the hospital she had electrolytes replaced, she's not had any other signs of vomiting. She has had some diarrhea. C. diff testing was completed and negative. She denies any previous history of EGD, peptic ulcer disease or GERD. No current labs available. CTA abdomen and pelvis showed no evidence of gastrointestinal hemorrhage, suspect tumor recurrence in the pelvis. Circumferential wall thickening and multiple loops of bowel in the pelvis and anastomotic site correlate for colitis. Patient currently being treated for thrush. She was seen and evaluated by speech therapy with normal oropharyngeal swallow. There was no concerns for silent aspiration. They just recommended chopped diet related to missing dentition. 12/21/2021: Patient seen and examined today without any acute changes through the night. She is tolerating a chopped diet without any difficulty swallowing. No further nausea or vomiting. Denies any abdominal pain, no fevers or chills. Objective - Vital Signs Vital signs: Vital Signs Temp 98.1 F 12/21/21 07:38 Pulse 61 12/21/21 07:38 Resp 16 12/21/21 07:38 BP 90/57 12/21/21 07:38 Pulse Ox 96 12/21/21 07:38 FiO2 Intake & Output 12/20/21 12/21/21 12/21/21 18:59 06:59 18:59 Intake Total 1340 Output Total 1575 1000 Balance -235 -1000 Intake: IV 600 Sodium Chloride 0.9% 1, 600 000 ml @ 75 mls/hr IV . [id number] [facility] Rx#:[id number] Oral 740 Output: Urine 1575 1000 Other: Voiding Method Ileal Conduit (Left) - Exam General appearance: The patient is alert, appears in no acute distress. HET: Head is normocephalic and atraumatic. Conjunctiva pink. Sclera anicteric. Neck: Supple without lymphadenopathy. Abdomen: Soft, nontender, nondistended with bowel sounds. No guarding or rigidity. Extremities: Normal skin color and turgor. No pedal edema Skin: No rashes, no jaundice Neurological: Patient has expressive aphasia. Alert and oriented. - Labs CBC & Chem 7: 12/20/21 11:29 12/20/21 11:29 Labs: Abnormal Lab Results - Last 24 Hours (Table) 12/20/21 12/20/21 Range/Units 11:29 11:29 WBC 3.0 L (3.8-10.6) k/uL RBC 2.84 L (3.80-5.40) m/uL Hgb 10.3 L (11.4-16.0) gm/dL Hct 30.6 L (34.0-46.0) % MCV 107.5 H (80.0-100.0) fL MCH 36.2 H (25.0-35.0) pg Plt Count 98 L (150-450) k/uL Chloride 114 H (98-107) mmol/L BUN 4 L (7-17) mg/dL Total Bilirubin 0.1 L (0.2-1.3) mg/dL Total Protein 5.5 L (6.3-8.2) g/dL Albumin 2.9 L (3.5-5.0) g/dL Microbiology - Last 24 Hours (Table) 12/17/21 21:21 Urine Culture - Preliminary Urine,Voided Klebsiella pneumoniae Enterococcus faecalis Assessment and Plan (1) Nausea and vomiting Narrative/Plan: 61-year-old female with a history of stomach cancer and bladder cancer presented to the emergency department 4 days ago with complaints of nausea vomiting, generalized weakness. She is currently undergoing chemotherapy. Has a history of previous sigmoid colon resection and ileal conduit in 2020. Presented to the emergency department with ongoing nausea and vomiting. Gastroenterology was consulted for dysphagia. Patient currently denying any difficulty with swallowing and no nausea or vomiting. No previous EGD. Continue antiemetics as needed. Speech therapy consultation reviewed, no concerns with oropharyngeal swallow or silent aspiration. Diet as tolerated. No plans on endoscopic evaluation. Current Visit: Yes Status: Acute Code(s): R11.2 - NAUSEA WITH VOMITING, UNSPECIFIED SNOMED Code(s): 70336904 (2) Hypokalemia Current Visit: Yes Status: Acute Code(s): E87.6 - HYPOKALEMIA SNOMED Code(s): 92524941 (3) Diarrhea Narrative/Plan: C-diff negative, antidiarrheals as needed Current Visit: No Status: Acute Code(s): R19.7 - DIARRHEA, UNSPECIFIED SNOMED Code(s): 40675225 Plan: 1. Continue symptomatic supportive care 2. Diet as tolerated, speech therapy recommending chopped diet Due to missing dentition 3. Antiemetics as needed 4. Protonix 40 mg GI prophylaxis 5. No plan for an endoscopic evaluation 6. Patient may have Antidiarrheals as needed Thank you for this consultation, we will sign off at this time. Dr. Davion Krueger I agree with the dictator's note, documented as a scribe by Jocelyn Lancaster.
--- NOTE | 2021-12-21 22:18 | P.DS ---
Providers Date of admission: 12/17/21 10:33 Attending physician: Abel Bright Consults: 12/17/21 03:26 Consult Physician Routine Consulting Provider: Elizabeth De Luna Consult Reason/Comments: klnown Do you want consulting provider notified?: Yes 12/17/21 20:58 Consult Physician Routine Consulting Provider: Vicki Krueger Consult Reason/Comments: dysphagia Do you want consulting provider notified?: Yes, Notify in am Primary care physician: Regino Hinton Hospital Course: Final Diagnosis -Nausea vomiting diarrhea secondary to chemotherapy there is also evidence for colitis on CT imaging. C.dif is negative. This is most likely secondary to recent chemotherapy. -Poor oral intake suspect secondary to recent chemo treatment with mucosal irritation and mucositis, patient receiving cools/nystatin swish with improvement of symptoms. She has tolerated advanced diet, food regurgitation has resolved and GI services has evaluated with no current plans for endoscopic procedure. -History bladder cancer with removal of urinary bladder patient has ileal conduit with urostomy bag. 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 -Carotid artery stenosis with 50% stenosis right ICA and 70% stenosis left ICA -History COPD -Chronic daily nicotinue use 1 pack per day counseled on cessation Full Code Discharge Disposition Patient is stable for discharge. She will be discharge home with home care se rvices in place. Recommended to follow up with primary care in 1 to 2 days. Patient has an appointment with oncology scheduled 01/10/22 and an appointment scheduled with Dr. Hinton on 12/24/21. Hospital Course This is a 62 year old female with medical history of bladder cancer and stomach cancer currently under the care of oncology and had recently undergone chemotherapy did have nausea vomiting diarrhea post. Last chemo treatment was last monday. For the last 5 days patient has been unable to tolerate oral intake. Once food hits her throat she has issues with regurgitation. She is unsure whether she has had dark stools. Denies hematemesis, coffee grounds, denies abdominal pain. Denies nausea. She does have some white coating on her tongue and suspect this is some mucositis. Patient did improve with nystatin/cools solution. She was evaluated by speech therapy and GI services and recommend chopped diet due to missing dentition. She had abdominal pelvis CTA performed showing no evidence for gastrointestinal hemorrhage. There is suspected tumor recurrence on pelvis decreased in size from prior imaging. There is circumferential wall thickening and multiple bowel loops in the pelvis near anastomotic sites possible colitis. There is ileal conduit with no urinary bladder. Hepatic steatosis. There is distal abdominal fusiform measuring 3.1 cm stable from december of 2020. Oncology will follow up with patient in the office with appointment scheduled for 01/10/22. Plans to hold chemotherapy/treatments until follow up. Patient did have urine culture positive for klebsiella and also enterococcus which enterococcus not clinically significant and with burris sensitivity. She was adequately treated inpatient with IV ceftriaxone. Diarrhea has resolved with conservative management. She was adequately hydrated while inpatient and blood pressure did improve to the mid 90s to low 100s systolic and she was started on low dose of midodrine three times a day. She will continue to work with speech therapy outpatient and also home physical therapy. She will be discharged home today. 12/21/2021 Patient is evaluated today resting in bed. is at bedside. Plan is for discharge home today and to follow up with oncology. Patient denies cough, denies shortness of breath. No abdominal pain reported. She has ileal conduit and urostomy which is draining into a donis bag. Urine is clear yellow. She reports no diarrhea overnight. Bowel sounds are normoactive. Lungs are clear, S1 S2 auscultated. Focal neurological exam is negative and patient is alert and oriented. She does have residual aphasia from prior stroke from September of 2021. She is not currently on aspirin therapy outpatient. Most recent labs showing white count of 3.0, hgb 10.3, platelet count of 98, sodium 141, potassium 3.7, BUN 4, creatinine 1.00. AST and ALT mildly elevated on admission, and currently normalized. Total protein 5.5. Afebrile, heart rate 61, blood pressure 90/57. Patient to continue on oral midodrine three times a day. Please see medication reconciliation for a list of current medication. Thank you for allowing us to participate in the care of this patient. Total time taken in discharge planning greater than 35 minutes. The impression and plan of care has been dictated by Sanam Chacko Nurse Practitioner as directed. Dr. Bella MD I have performed a history and physical examination and medical decision making of this patient, discussed the same with the dictator, and agree with the dictators assessment and plan as written, documented as a scribe. Based on total visit time, I have performed more than 50% of this visit. Patient Condition at Discharge: Fair Plan - Discharge Summary Discharge Rx Participant: No New Discharge Prescriptions: New Midodrine [ProAmatine] 5 mg PO AC-TID #90 tab Continue Atorvastatin [Lipitor] 80 mg PO DAILY Ondansetron [Zofran] 4 mg PO Q8HR PRN PRN Reason: Nausea Omeprazole [PriLOSEC] 20 mg PO DAILY Metoclopramide [Reglan] 5 mg PO ACHS QUEtiapine [SEROquel] 12.5 mg PO HS Divalproex Sodium [Depakote] 125 mg PO BID Discharge Medication List Omeprazole [PriLOSEC] 20 mg PO DAILY 09/22/21 [History] Ondansetron [Zofran] 4 mg PO Q8HR PRN 09/22/21 [History] Atorvastatin [Lipitor] 80 mg PO DAILY 12/17/21 [History] Divalproex Sodium [Depakote] 125 mg PO BID 12/17/21 [History] Metoclopramide [Reglan] 5 mg PO ACHS 12/17/21 [History] QUEtiapine [SEROquel] 12.5 mg PO HS 12/17/21 [History] Midodrine [ProAmatine] 5 mg PO AC-TID #90 tab 12/21/21 [Rx] Follow up Appointment(s)/Referral(s): Regino Hinton MD [Primary Care Provider] - 12/24/21 1:20 pm Tristen Mix MD [STAFF PHYSICIAN] - 01/10/22 3:45 pm Patient Instructions/Handouts: Weakness (DC) Activity/Diet/Wound Care/Special Instructions: Advance diet as tolerated recommend chopped diet due to missing dentition Script sent down to [facility] at [facility] for Cools oral solution for a 10 day supply. Continue with 5 mLs four times a day for the next 10 days. Follow up with primary care in 1 to 2 days. Keep same appointment with Dr. Mix Continue with oral midodrine 5 mg three a times a day to help improve blood pressure If blood pressure becomes elevated about 130s systolic notify your health care provider.
== END 2021-12-21 15:28 | disposition home or self-care (01) | DRG 394 ==
LOC: EC 00:49 → 6NMEDSUR 03:26 → 5NMEDONC 10:29 → OBSVTOIN 10:33 → 5NMEDONC 13:11 → 4SSUR 18:10
PROVIDERS: ADMIT Hospitalist; ATTEND Hospitalist
DX: K52.1 Toxic gastroenteritis and colitis (principal); B37.0 Candidal stomatitis; C16.9 Malignant neoplasm of stomach, unspecified; C78.6 Secondary malignant neoplasm of retroperitoneum and peritoneum; R71.0 Precipitous drop in hematocrit; N39.0 Urinary tract infection, site not specified; N17.9 Acute kidney failure, unspecified; I69.398 Other sequelae of cerebral infarction; K76.0 Fatty (change of) liver, not elsewhere classified; J44.9 Chronic obstructive pulmonary disease, unspecified; I65.23 Occlusion and stenosis of bilateral carotid arteries; I69.320 Aphasia following cerebral infarction; C67.9 Malignant neoplasm of bladder, unspecified; E86.0 Dehydration; E87.6 Hypokalemia; R41.82 Altered mental status, unspecified; F17.210 Nicotine dependence, cigarettes, uncomplicated; I71.40 Abdominal aortic aneurysm, without rupture, unspecified; R13.10 Dysphagia, unspecified; N64.53 Retraction of nipple; R03.1 Nonspecific low blood-pressure reading; T45.1X5A Adverse effect of antineoplastic and immunosuppressive drugs, initial encounter; K12.30 Oral mucositis (ulcerative), unspecified; B96.1 Klebsiella pneumoniae [K. pneumoniae] as the cause of diseases classified elsewhere; Z88.5 Allergy status to narcotic agent; Z90.49 Acquired absence of other specified parts of digestive tract; Z79.899 Other long term (current) drug therapy; Z68.25 Body mass index [BMI] 25.0-25.9, adult; Z93.6 Other artificial openings of urinary tract status; Z28.310 Unvaccinated for COVID-19
CPT/HCPCS: 36415; 74174; 80048; 80053; 81001; 82150; 83605; 83690; 83735; 84100; 85025; 85027; 87077; 87086; 87186; 87324; 93005; 96361; 96374; 96375; 99284

== ENCOUNTER → 2022-01-26 | Outpatient (CLI) | payer OTHER ==
--- NOTE | 2022-01-26 15:28 | CT ---
"EXAMINATION TYPE: CT brain wo con DATE OF EXAM: 01/26/2022 HISTORY: hx of recent strokes CT DLP: 1029.90 mGycm. Automated Exposure Control for Dose Reduction was Utilized. TECHNIQUE: CT scan of the head is performed without contrast. COMPARISON: CT brain October 06, 2021. FINDINGS: There is no acute intracranial hemorrhage or midline shift identified. There is moderate diffuse ventricular and sulcal prominence consistent with diffuse age-related cerebral atrophy. Old i nfarct high right parietal region axial much 35 again seen. New areas of vague low attenuation in the left frontal and parietal lobes in the MCA distribution. The globes are intact and the visualized s inuses are clear. IMPRESSION: No acute intracranial hemorrhage or midline shift. There is background moderate diffuse cerebral atrophy redemonstrated. Old right posterior watershed infarct now identified. Suspect evol ving acute/subacute infarct in the left middle cerebral artery distribution involving frontal and par ietal lobes. Finding correlates with chronic occluded left middle cerebral artery on CTA October [id number]. A [place] level critical message alert has been initiated for Latrice Tong MD via the [employer] | Critical Results System on 01/26/2022 3:25 PM. This message alert has been sent to Latrice Togn MD via the preferences provided by the clinician for the receipt of Radiology Critical Findi ngs. Message ID [id number]."
== END | disposition home or self-care (01) ==
LOC: RADCTMAIN 14:55
PROVIDERS: ATTEND Psychiatry & Neurology Neurology
DX: G31.9 Degenerative disease of nervous system, unspecified (principal); I63.9 Cerebral infarction, unspecified
CPT/HCPCS: 70450

== ENCOUNTER → 2022-03-01 | Outpatient (CLI) | payer OTHER ==
--- NOTE | 2022-03-01 22:28 | CT ---
EXAMINATION TYPE: CT ChestAbdPelvis w con CT DLP: 690.2 mGycm, Automated exposure control for dose reduction was used. DATE OF EXAM: 03/01/2022 5:21 PM COMPARISON: 08/18/2021 CT chest abdomen pelvis. PET/CT 06/11/2021 CLINICAL INDICATION:Female, 61 years old with history of C67.9 bladder cancer;, bladder cancer Technique: Multiple axial images of the chest, abdomen, and pelvis were obtained. Two-dimensional cor onal and sagittal reconstructions were obtained. Contrast used:80ML mL of Isovue 300 with IV Contrast, Oral contrast used: with Oral Contrast Findings: CHEST: LUNGS/ PLEURA: The lung parenchyma appears unremarkable. AIRWAY: Patent and unremarkable. HEART: Size within normal limits. MEDIASTINUM: No gross evidence of adenopathy. VASCULATURE: No aortic aneurysm. Left chest wall Yhmlwb-j-Pitw with distal tip appearing to be ante rior to the subclavian vein and now within the vessel on sagittal imaging. Series 8 image 67. MUSCULOSKELETAL: No acute osseous abnormalities. SOFT TISSUES/LYMPH NODES: Left chest wall loop recorder. LOWER NECK: No significant findings. ABDOMEN: ABDOMEN LIVER: Unremarkable GALLBLADDER AND BILE DUCTS: Unremarkable. PANCREAS: Unremarkable. SPLEEN: Unremarkable. ADRENAL GLANDS: Unremarkable. KIDNEYS AND URETERS: No evidence of hydronephrosis or renal calculus. Left renal cyst. Mild dilation of the collecting systems PELVIS BLADDER: Mass within the urinary bladder surgical bed is again demonstrated measuring larger at 5.4 x 4.8 cm , previously 4.9 x 4.2 cm. REPRODUCTIVE: Unremarkable. ABDOMEN & PELVIS STOMACH AND BOWEL: No evidence of bowel obstruction. Moderate to large stool burden throughout the co christianne which appears to be partly partially obstructed by the pelvic mass which closely approximates and possibly invades into the rectum PERITONEUM: No evidence of pneumoperitoneum or free fluid. Surgical clips are seen in the pelvis. VASCULATURE: No evidence of aortic aneurysm. 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 Previously up to 3.7 cm. MUSCULOSKELETAL: No acute osseous abnormalities Mild disc degeneration changes throughout the spine w ith facet joint arthropathy. Grade 1/2 anterolisthesis of L4 on L5 is present. Retrolisthesis of L2 o n L3. LYMPH NODES: No gross evidence for lymphadenopathy. SOFT TISSUE/ABDOMINAL WALL: Unremarkable IMPRESSION: 1. Interval increase in bladder surgical bed soft tissue mass which immediately abuts likely invades into the rectal wall. This results in at least partial obstruction of the large bowel. The mass is l arger on today's exam suggesting progression of disease. No evidence of intra-abdominal lymphadenopat hy in today's exam. 2. Left chest wall Sdtabr-g-Keev distal tip appears to terminate in the soft tissues just anterior t o the left subclavian vein. Further evaluation of the Mvpbao-s-Yvly is recommended before used. 3. Mildly increased distal aorta fusiform dilation up to 3.9 cm.
== END | disposition home or self-care (01) ==
LOC: RADCTMAIN 14:20
PROVIDERS: ATTEND Internal Medicine Hematology & Oncology
DX: C67.9 Malignant neoplasm of bladder, unspecified (principal); I71.40 Abdominal aortic aneurysm, without rupture, unspecified; D61.818 Other pancytopenia; R51.9 Headache, unspecified; N32.89 Other specified disorders of bladder; Z71.3 Dietary counseling and surveillance
CPT/HCPCS: 82565; 84520; 71260; 74177; 36415; Q9967

== ENCOUNTER → 2022-05-10 | Outpatient (CLI) | payer OTHER ==
--- NOTE | 2022-05-11 11:51 | CT ---
EXAMINATION TYPE: CT ChestAbdPelvis w con CT DLP: 593.5 mGycm, Automated exposure control for dose reduction was used. DATE OF EXAM: 05/10/2022 4:39 PM COMPARISON: CT 03/01/2022, 12/09/2021, PET/CT 06/11/2021 CLINICAL INDICATION:Female, 61 years old with history of C67.9, Bladder CA. Observation for suspected mets. Technique: Multiple axial images of the chest, abdomen, and pelvis were obtained. Two-dimensional cor onal and sagittal reconstructions were obtained. Contrast used:100cc mL of Isovue 300 with IV Contrast, Oral contrast used: with Oral Contrast Findings: There was incomplete scanning of the upper thorax, with that said the visualized portions scanned: CHEST: LUNGS/ PLEURA: Lung parenchyma is grossly unremarkable. No evidence for enlarging pulmonary nodule. N o focal consolidation pneumothorax or pleural effusion. AIRWAY: Patent and unremarkable. HEART: Size within normal limits. MEDIASTINUM: No gross evidence of adenopathy. VASCULATURE: No aortic aneurysm. Left chest wall Llsucz-z-Jvgt is not definitively visualized due t o field of view. MUSCULOSKELETAL: No acute osseous abnormalities. SOFT TISSUES/LYMPH NODES: Left chest wall loop recorder is partially visualized. LOWER NECK: No significant findings. ABDOMEN: ABDOMEN LIVER: Unremarkable GALLBLADDER AND BILE DUCTS: Unremarkable. PANCREAS: Unremarkable. SPLEEN: Unremarkable. ADRENAL GLANDS: Unremarkable. KIDNEYS AND URETERS: No evidence of hydronephrosis or renal calculus. Left renal simple appearing cys t. Mild dilation of the collecting systems PELVIS BLADDER: Mass within the urinary bladder surgical bed has increased in size now measuring 8.7 x 8.7 c m, previously at 5.4 x 4.8 cm , and previously before that 4.9 x 4.2 cm. There is now gas within thi s mass suggesting necrosis. This metastases is in close proximity to the bowel. REPRODUCTIVE: Unremarkable. ABDOMEN & PELVIS STOMACH AND BOWEL: No evidence of bowel obstruction. Moderate to large stool burden throughout the co christianne which appears to be partly partially obstructed by the pelvic mass which closely approximates and possibly invades into the rectum. PERITONEUM: No evidence of pneumoperitoneum or free fluid. Surgical clips are seen in the pelvis. VASCULATURE: No evidence of aortic aneurysm. 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 MUSCULOSKELETAL: No acute osseous abnormalities Mild disc degeneration changes throughout the spine w ith facet joint arthropathy. Grade 1/2 anterolisthesis of L4 on L5 is present. Retrolisthesis of L2 o n L3. LYMPH NODES: No gross evidence for lymphadenopathy. SOFT TISSUE/ABDOMINAL WALL: Unremarkable IMPRESSION: 1. Continued interval increase in bladder surgical bed soft tissue mass which immediately abuts like ly invades into the rectal wall. There is no significant gas within this mass suggesting necrosis sup erimposed infection not entirely excluded. There remains at least least partial obstruction of the la rge bowel near the rectum. No evidence of intra-abdominal lymphadenopathy in today's exam. 2. Stable distal aorta fusiform dilation up to 3.9 cm.
== END | disposition home or self-care (01) ==
LOC: RADCTMAIN 14:29
PROVIDERS: ATTEND Internal Medicine Hematology & Oncology
DX: Z03.89 Encounter for observation for other suspected diseases and conditions ruled out (principal); C67.9 Malignant neoplasm of bladder, unspecified; I77.810 Thoracic aortic ectasia
CPT/HCPCS: 82565; 84520; 71260; 74177; 36415; Q9967

== ENCOUNTER 2022-05-19 13:41 | Inpatient (IN) | payer OTHER ==
[2022-05-19] MEDS ORDERED: SODIUM CHLORIDE 0.9% 500 ML 500 ML IV STA (14:03)
--- NOTE | 2022-05-19 14:09 | ED ---
General Adult HPI - General Chief complaint: Weakness Stated complaint: Weakness Time Seen by Provider: 05/19/22 13:41 Source: patient, EMS, RN notes reviewed, old records reviewed Mode of arrival: EMS Limitations: no limitations - History of Present Illness Initial comments: This is a 61-year-old female with a past medical history significant for bladder cancer she has a urostomy. states she has become significantly weak in the last day or 2 such that she cannot even assist in transport and last emesis at that was a urinary tract infection. states she can't take her home because of her weakness but when she is back to her baseline he is able to care for her. He has not noticed any temperature he has not noticed any difficulty breathing or cough. Patient herself says was no pain. There's been no vomiting or diarrhea. - Related Data Home Medications Medication Instructions Recorded Confirmed Ondansetron [Zofran] 4 mg PO Q8HR PRN 09/22/21 04/09/22 Divalproex Sodium [Depakote] 125 mg PO BID 12/17/21 04/09/22 Aspirin [Adult Low Dose Aspirin EC] 81 mg PO DAILY 04/09/22 04/09/22 Multivitamins, Thera [Multivitamin 1 tab PO DAILY 04/09/22 04/09/22 (formulary)] Previous Rx's Medication Instructions Recorded Loperamide [Imodium] 4 mg PO TID PRN cap 04/11/22 Nystatin 100,000 Unit/ml Susp 4 ml PO QID 6 Days #100 ml 04/11/22 [Mycostatin Oral Susp] Pantoprazole [Protonix] 40 mg PO AC-BRKFST #30 tab 04/11/22 Allergies Allergy/AdvReac Type Severity Reaction Status Date / Time codeine Allergy Itching Verified 04/09/22 22:12 Review of Systems ROS Statement: Those systems with pertinent positive or pertinent negative responses have been documented in the HPI. ROS Other: All systems not noted in ROS Statement are negative. Past Medical History Past Medical History: Cancer, COPD, CVA/TIA Additional Past Medical History / Comment(s): bladder CA, ileostomy, "something in the abdomen that they are trying to shrink" History of Any Multi-Drug Resistant Organisms: None Reported Past Surgical History: Bladder Surgery Additional Past Surgical History / Comment(s): ileostomy 06/2020 at [facility] in [facility], fatty tumor removed from rt leg, Past Anesthesia/Blood Transfusion Reactions: No Reported Reaction Past Psychological History: No Psychological Hx Reported Smoking Status: Current every day smoker Past Alcohol Use History: Rare Past Drug Use History: None Reported - Past Family History Brother(s) Family Medical History: Cancer Sister(s) Family Medical History: Cancer, Deep Vein Thrombosis (DVT) General Exam - General Exam Comments Initial Comments: GENERAL: Patient is well-developed and well-nourished. Patient is nontoxic and well- hydrated and is in no acute distress. ENT: Neck is soft and supple. No significant lymphadenopathy is noted. Oropharynx is clear. Moist mucous membranes. Neck has full range of motion without eliciting any pain. EYES: The sclera were anicteric and conjunctiva were pink and moist. Extraocular movements were intact and pupils were equal round and reactive to light. Eyelids were unremarkable. PULMONARY: Unlabored respirations. Good breath sounds bilaterally. No audible rales rhonchi or wheezing was noted. CARDIOVASCULAR: There is a regular rate and rhythm without any murmurs gallops or rubs. ABDOMEN: Soft and nontender with normal bowel sounds. SKIN: Skin is clear with no lesions or rashes and otherwise unremarkable. NEUROLOGIC: Patient is alert and oriented difficult to assess patient is unable to speak secondary to a previous stroke she does follow basic instructions. Cranial nerves II through XII are grossly intact. Motor and sensory are also intact. Normal speech, volume and content. Symmetrical smile. MUSCULOSKELETAL: Normal extremities with adequate strength and full range of motion. LYMPHATICS: No significant lymphadenopathy is noted PSYCHIATRIC: Normal psychiatric evaluation. Limitations: no limitations Course Vital Signs 05/19/22 05/19/22 13:49 16:00 Temperature 99 F Pulse Rate 87 66 Respiratory 18 18 Rate Blood Pressure 101/67 92/53 O2 Sat by Pulse 96 94 L Oximetry Medical Decision Making - Medical Decision Making EKG was interpreted by myself shows a sinus rhythm at 64 bpm TX interval 294 QRS 89 QT intervals 436 QTC is 446. Patient's EKG shows no ST segment elevation or depression. Was pt. sent in by a medical professional or institution (, PA, DIRECTOR OF GUIDANCE, urgent care, hospital, or [facility]...) When possible be specific @ -No Did you speak to anyone other than the patient for history (EMS, parent, family, police, friend...)? What history was obtained from this source @ -EMS gave all the history and when arrived he gave me the history as well patient was unable to give any history Did you review nursing and triage notes (agree or disagree)? Why? @ -I reviewed and agree with nursing and triage notes Were old charts reviewed (outside hosp., previous admission, EMS record, old EKG, old radiological studies, urgent care reports/EKG's, [facility] records)? Report findings @ -Prior laboratory studies were reviewed Differential Diagnosis (chest pain, altered mental status, abdominal pain women, abdominal pain men, vaginal bleeding, weakness, fever, dyspnea, syncope, headache, dizziness, GI bleed, back pain, seizure, CVA, palpatations, mental health, musculoskeletal)? @ -Differential Weakness: Hypoglycemia, shock, sepsis, hyponatremia, anemia, infection, TN, ETOH, adverse medicine reaction, overdose, stroke, this is not meant to be an all-inclusive list. EKG interpreted by me (3pts min.). @ -As above X-rays interpreted by me (1pt min.). @ -Chest x-ray was interpreted by myself is in no acute abnormality CT interpreted by me (1pt min.). @ -None done U/S interpreted by me (1pt. min.). @ -None done What testing was considered but not performed or refused? (CT, X-rays, U/S, labs)? Why? @ -None What meds were considered but not given or refused? Why? @ -None Did you discuss the management of the patient with other professionals (professionals i.e. , PA, DIRECTOR OF GUIDANCE, lab, RT, psych nurse, licensed social worker, firer kiln, teacher, chief technology officer, employment case manager)? Give summary @ -Poke with [facility] hospitalist agreed to admit the patient Was smoking cessation discussed for >3mins.? @ -No Was critical care preformed (if so, how long)? @ -No Were there social determinants of health that impacted care today? How? (Homelessness, low income, unemployed, alcoholism, drug addiction, transportation, low edu. Level, literacy, decrease access to med. care, nursing home, rehab)? @ -No Was there de-escalation of care discussed even if they declined (Discuss DNR or withdrawal of care, Hospice)? DNR status @ -No What co-morbidities impacted this encounter? (DM, HTN, Smoking, COPD, CAD, Cance r, CVA, ARF, Chemo, Hep., AIDS, mental health diagnosis, sleep apnea, morbid obesity)? @ -None Was patient admitted / discharged? Hospital course, mention meds given and route, prescriptions, significant lab abnormalities, going to OR and other pertinent info. @ -Patient had a urinary tract infection started the patient on Rocephin I gave her 2 g. Patient also was somewhat dehydrated I gave her a liter half fluid. I spoke with [facility] hospitalist agreed to admit the patient admitted the patient I wrote admitting orders. I continued antibiotics on the floor. Undiagnosed new problem with uncertain prognosis? @ -No Drug Therapy requiring intensive monitoring for toxicity (Heparin, Nitro, Insulin, Cardizem)? @ -No Were any procedures done? @ -No Diagnosis/symptom? @ -Urinary tract infection Acute, or Chronic, or Acute on Chronic? @ -Acute Uncomplicated (without systemic symptoms) or Complicated (systemic symptoms)? @ -Complicated Side effects of treatment? @ -No Exacerbation, Progression, or Severe Exacerbation? @ -No Poses a threat to life or bodily function? How? (Chest pain, USA, TN, pneumonia, PE, COPD, DKA, ARF, appy, cholecystitis, CVA, Diverticulitis, Homicidal, Suicidal, threat to staff... and all critical care pts) @ -Yes this could lead to sepsis which could lead to end organ dysfunction Diagnosis/symptom? @ -Generalized weakness Acute, or Chronic, or Acute on Chronic? @ -Acute Uncomplicated (without systemic symptoms) or Complicated (systemic symptoms)? @ -default Side effects of treatment? @ -none Exacerbation, Progression, or Severe Exacerbation] @ -no Poses a threat to life or bodily function? @ -no Diagnosis/symptom? @ -Dehydration Acute, or Chronic, or Acute on Chronic? @ -Acute Uncomplicated (without systemic symptoms) or Complicated (systemic symptoms)? @ -Uncomplicated Side effects of treatment? @ -none Exacerbation, Progression, or Severe Exacerbation] @ -no Poses a threat to life or bodily function? @ -no - Lab Data Result diagrams: 05/19/22 14:10 05/19/22 14:10 Lab Results 05/19/22 05/19/22 05/19/22 Range/Units 14:10 14:10 14:10 WBC 25.5 H (3.8-10.6) k/uL RBC 2.89 L (3.80-5.40) m/uL Hgb 10.0 L (11.4-16.0) gm/dL Hct 29.7 L (34.0-46.0) % MCV 103.1 H (80.0-100.0) fL MCH 34.8 (25.0-35.0) pg MCHC 33.8 (31.0-37.0) g/dL RDW 15.3 (11.5-15.5) % Plt Count 227 (150-450) k/uL MPV 7.9 Neutrophils % 90 % Lymphocytes % 6 % Monocytes % 3 % Eosinophils % 0 % Basophils % 0 % Neutrophils # 23.0 H (1.3-7.7) k/uL Lymphocytes # 1.4 (1.0-4.8) k/uL Monocytes # 0.7 (0-1.0) k/uL Eosinophils # 0.1 (0-0.7) k/uL Basophils # 0.0 (0-0.2) k/uL Macrocytosis Slight PT 12.0 (9.0-12.0) sec INR 1.2 H (<1.2) APTT 21.3 L (22.0-30.0) sec Sodium 139 (137-145) mmol/L Potassium 4.5 (3.5-5.1) mmol/L Chloride 106 (98-107) mmol/L Carbon Dioxide 25 (22-30) mmol/L Anion Gap 8 mmol/L BUN 23 H (7-17) mg/dL Creatinine 0.89 (0.52-1.04) mg/dL Est GFR (CKD-EPI)AfAm 80 (>60 ml/min/1.73 sqM) Est GFR (CKD-EPI)NonAf 69 (>60 ml/min/1.73 sqM) Glucose 97 (74-99) mg/dL Plasma Lactic Acid Amaury (0.7-2.0) mmol/L Calcium 9.9 (8.4-10.2) mg/dL Magnesium 2.2 (1.6-2.3) mg/dL Total Bilirubin 0.7 (0.2-1.3) mg/dL AST 30 (14-36) U/L ALT 25 (4-34) U/L Alkaline Phosphatase 219 H (38-126) U/L Troponin I (0.000-0.034) ng/mL Total Protein 6.8 (6.3-8.2) g/dL Albumin 3.2 L (3.5-5.0) g/dL Urine Color Urine Appearance (Clear) Urine pH (5.0-8.0) Ur Specific [place] (1.001-1.035) Urine Protein (Negative) Urine Glucose (UA) (Negative) Urine Ketones (Negative) Urine Blood (Negative) Urine Nitrite (Negative) Urine Bilirubin (Negative) Urine Urobilinogen (<2.0) mg/dL Ur Leukocyte Esterase (Negative) Urine RBC (0-5) /hpf Urine WBC (0-5) /hpf Ur Squamous Epith Cells (0-4) /hpf Amorphous Sediment (None) /hpf Urine Bacteria (None) /hpf Urine Mucus (None) /hpf 05/19/22 05/19/22 05/19/22 Range/Units 14:10 14:10 14:14 WBC (3.8-10.6) k/uL RBC (3.80-5.40) m/uL Hgb (11.4-16.0) gm/dL Hct (34.0-46.0) % MCV (80.0-100.0) fL MCH (25.0-35.0) pg MCHC (31.0-37.0) g/dL RDW (11.5-15.5) % Plt Count (150-450) k/uL MPV Neutrophils % % Lymphocytes % % Monocytes % % Eosinophils % % Basophils % % Neutrophils # (1.3-7.7) k/uL Lymphocytes # (1.0-4.8) k/uL Monocytes # (0-1.0) k/uL Eosinophils # (0-0.7) k/uL Basophils # (0-0.2) k/uL Macrocytosis PT (9.0-12.0) sec INR (<1.2) APTT (22.0-30.0) sec Sodium (137-145) mmol/L Potassium (3.5-5.1) mmol/L Chloride (98-107) mmol/L Carbon Dioxide (22-30) mmol/L Anion Gap mmol/L BUN (7-17) mg/dL Creatinine (0.52-1.04) mg/dL Est GFR (CKD-EPI)AfAm (>60 ml/min/1.73 sqM) Est GFR (CKD-EPI)NonAf (>60 ml/min/1.73 sqM) Glucose (74-99) mg/dL Plasma Lactic Acid Amaury 1.4 (0.7-2.0) mmol/L Calcium (8.4-10.2) mg/dL Magnesium (1.6-2.3) mg/dL Total Bilirubin (0.2-1.3) mg/dL AST (14-36) U/L ALT (4-34) U/L Alkaline Phosphatase (38-126) U/L Troponin I <0.012 (0.000-0.034) ng/mL Total Protein (6.3-8.2) g/dL Albumin (3.5-5.0) g/dL Urine Color Yellow Urine Appearance Turbid H (Clear) Urine pH 6.0 (5.0-8.0) Ur Specific [place] 1.013 (1.001-1.035) Urine Protein Trace H (Negative) Urine Glucose (UA) Negative (Negative) Urine Ketones Negative (Negative) Urine Blood Negative (Negative) Urine Nitrite Positive H (Negative) Urine Bilirubin Negative (Negative) Urine Urobilinogen 4.0 (<2.0) mg/dL Ur Leukocyte Esterase Small H (Negative) Urine RBC 2 (0-5) /hpf Urine WBC 61 H (0-5) /hpf Ur Squamous Epith Cells <1 (0-4) /hpf Amorphous Sediment Few H (None) /hpf Urine Bacteria Rare H (None) /hpf Urine Mucus Occasional H (None) /hpf Disposition Clinical Impression: Urinary tract infection, Generalized weakness, Dehydration Disposition: [facility] Time of Disposition: 16:11
[2022-05-19 14:22] LABS: Basophils % (A) 0 %; Eosinophils # (A) 0.1 k/uL (0-0.7); Eosinophils % (A) 0 %; HCT 29.7 % (34.0-46.0); Lymphocytes # (A) 1.4 k/uL (1.0-4.8); Lymphocytes % (A) 6 %; MCH 34.8 pg (25.0-35.0); MCHC 33.8 g/dL (31.0-37.0); MCV 103.1 fL (80.0-100.0); Macrocytosis Slight; Mean Platelet Volume 7.9; Monocytes # (A) 0.7 k/uL (0-1.0); Monocytes % (A) 3 %; Neutrophils % (A) 90 %; Platelet Count 227 k/uL (150-450); RBC 2.89 m/uL (3.80-5.40); RDW 15.3 % (11.5-15.5); WBC 25.5 k/uL (3.8-10.6)
[2022-05-19 14:29] LABS: Amorphous Sediment,Urine Few /hpf; Appearance,Urine Turbid (Clear); Bacteria,Urine Rare /hpf; Bilirubin,Urine Negative (Negative); Blood,Urine Negative (Negative); Color,Urine Yellow; Glucose,Urine (UA) Negative (Negative); Ketones,Urine Negative (Negative); Leukocyte Esterase,Urine Small (Negative); Mucus,Urine Occasional /hpf; Nitrite,Urine Positive (Negative); Protein,Urine Trace (Negative); RBC,Urine 2 /hpf (0-5); Specific Gravity,Urine 1.013 (1.001-1.035); Squamous Epithelial Cell,Urine <1 /hpf (0-4); WBC,Urine 61 /hpf (0-5)
[2022-05-19 14:38] LABS: Albumin 3.2 g/dL (3.5-5.0); Calcium 9.9 mg/dL (8.4-10.2); Magnesium 2.2 mg/dL (1.6-2.3); Potassium 4.5 mmol/L (3.5-5.1); Total Bilirubin 0.7 mg/dL (0.2-1.3); Total Protein 6.8 g/dL (6.3-8.2)
[2022-05-19 14:40] LABS: INR 1.2 (<1.2)
--- NOTE | 2022-05-19 14:45 | XR ---
EXAMINATION TYPE: XR chest 2V DATE OF EXAM: 05/19/2022 2:39 PM COMPARISON: CT 05/10/2022 TECHNIQUE: XR chest 2V Frontal and lateral views of the chest. CLINICAL INDICATION:Female, 61 years old with history of Weakness; FINDINGS: Lungs/Pleura: There is no evidence of pleural effusion, focal consolidation, or pneumothorax. Pulmonary vascularity: Unremarkable. Heart/mediastinum: Cardiomediastinal silhouette is unremarkable. A loop recorder projects over the le ft thorax over the heart. Musculoskeletal: No acute osseous pathology. Other findings: None Lines/Tubes: Left chest Xuwxos-j-Izlb with tip terminating over the left clavicle. IMPRESSION: 1. No acute cardiopulmonary disease/process. 2. Left Nolmdy-d-Ibrn distal tip in stable position. Vasculature to be nearly completely pulled out of the vasculature when comparing to prior CT.
[2022-05-19 14:50] LABS: Partial Thromboplastin Time 21.3 sec (22.0-30.0)
[2022-05-19] MEDS ORDERED: cefTRIAXone IN SWFI 1,000 MG/10 ML SYRINGE IVP STA (15:42)
[2022-05-19] MEDS ORDERED: SODIUM CHLORIDE 0.9% 1,000 ML IV ONE ×2 (15:46→16:39)
[2022-05-20] MEDS ORDERED: DIPHENOX-ATROP 2.5-0.025 MG 1 EACH TAB PO PRN (11:11)
[2022-05-20] MEDS: PANTOPRAZOLE 40 MG TABLET PO SCH (12:07)
[2022-05-20] MEDS: MULTIVITAMINS, THERA 1 EACH TAB PO SCH (12:07)
[2022-05-20] MEDS: DIVALPROEX SPRINKLE 125 MG CAP.SPRINK PO SCH ×2 (12:08→20:18)
[2022-05-20 15:16] LABS: Basophils # (A) 0.1 k/uL (0-0.2); Basophils % (A) 0 %; Eosinophils # (A) 0.1 k/uL (0-0.7); Eosinophils % (A) 0 %; HCT 29.8 % (34.0-46.0); HGB 9.5 gm/dL (11.4-16.0); Lymphocytes % (A) 7 %; MCH 33.7 pg (25.0-35.0); MCHC 31.8 g/dL (31.0-37.0); Macrocytosis Moderate; Mean Platelet Volume 8.2; Monocytes # (A) 0.6 k/uL (0-1.0); Monocytes % (A) 2 %; Neutrophils % (A) 90 %; Platelet Count 232 k/uL (150-450); RBC 2.81 m/uL (3.80-5.40); RDW 15.4 % (11.5-15.5)
[2022-05-20 15:36] LABS: African American GFR (CKD) 87 (>60 ml/min/1.73 sqM); Anion Gap 9 mmol/L; Blood Urea Nitrogen 18 mg/dL (7-17); Calcium 9.3 mg/dL (8.4-10.2); Carbon Dioxide 23 mmol/L (22-30); Chloride 109 mmol/L (98-107); Glucose 88 mg/dL (74-99); Non-African American GFR(CKD) 76 (>60 ml/min/1.73 sqM); Sodium 141 mmol/L (137-145)
[2022-05-20 16:04] LABS: C Reactive Protein 19.4 mg/dL (<1.0)
[2022-05-21 06:52] LABS: African American GFR (CKD) >90 (>60 ml/min/1.73 sqM); Anion Gap 4 mmol/L; Blood Urea Nitrogen 16 mg/dL (7-17); Calcium 8.6 mg/dL (8.4-10.2); Carbon Dioxide 23 mmol/L (22-30); Chloride 110 mmol/L (98-107); Glucose 80 mg/dL (74-99); Non-African American GFR(CKD) >90 (>60 ml/min/1.73 sqM); Potassium 3.7 mmol/L (3.5-5.1); Sodium 137 mmol/L (137-145)
[2022-05-21 07:41] LABS: C Reactive Protein 16.1 mg/dL (<1.0)
[2022-05-21 08:56] LABS: HCT 24.7 % (37.2-46.3); HGB 7.8 g/dL (12.0-15.0); MCH 33.8 pg (27.0-32.0); MCHC 31.6 g/dL (32.0-37.0); MCV 106.9 fL (80.0-97.0); NRBC Per 100 WBC 0 /100 WBCS (0.0-0.0); Platelet Count 195 X 10*3/uL (140-440); RBC 2.31 X 10*6/uL (4.10-5.20); RDW 15.7 % (11.5-14.5); WBC 24.64 X 10*3/uL (4.50-10.00)
[2022-05-21] MEDS: ASPIRIN 81 MG PO SCH (09:01)
[2022-05-21] MEDS: DIVALPROEX SPRINKLE 125 MG CAP.SPRINK PO SCH ×2 (09:01→20:08)
[2022-05-21] MEDS: MULTIVITAMINS, THERA 1 EACH TAB PO SCH (09:01)
[2022-05-21] MEDS: PANTOPRAZOLE 40 MG TABLET PO SCH (09:01)
[2022-05-21 09:55] LABS: Basophils # (A) 0.07 X 10*3/uL (0.00-0.10); Basophils % (A) 0.3 %; Eosinophils # (A) 0.12 X 10*3/uL (0.04-0.35); Eosinophils % (A) 0.5 %; Immature Grans, Automated 1.1 %; Lymphocytes # (A) 1.85 X 10*3/uL (0.90-5.00); Lymphocytes % (A) 7.5 %; Monocytes # (A) 0.75 X 10*3/uL (0.20-1.00); Neutrophils # (A) 21.58 X 10*3/uL (1.80-7.70); Neutrophils % (A) 87.6 %
[2022-05-21 09:56] LABS: Acanthocytes 2+; Macrocytosis (M) 2+
[2022-05-21] MEDS: AMPICILLIN-SULBACTAM 3 GM in SODIUM CHLORIDE 0.9% 100 ML IVPB SCH ×3 (14:30→23:43)
--- NOTE | 2022-05-21 15:35 | P.CONS ---
History of Present Illness - Reason for Consult Consult date: 05/21/22 Leukocytosis, UTI Requesting physician: Rick Harris - Chief Complaint Weakness x 2 days - History of Present Illness Patient is a 61-year-old female with a past medical history significant for bladder cancer did have ileostomy COPD CVA TIA the patient has been brought into the hospital by the complaining of the patient becoming significantly weak in the last day or 2 and cannot even assist in transport and the patient did have episode of more vomiting and concerning for possible UTI with the same the patient was brought into the ER on arrival to the ER the patient did have a low-grade fever of 99 F the patient was not hypoxic or need for supplemental oxygen he did have white count of 25,000 which repeat was up to 29,000 creatinine was normal and BUN was mildly elevated liver enzymes are normal patient did have a positive UA blood cultures obtained which are currently pending urine is now showing Enterococcus patient is currently being treated with Rocephin infectious disease was consulted for further management of antibiotic therapy therapy. At the time my evaluation patient denies having any fever or any chills has been complaining of weak no headache or URI symptoms no chest pain no headache or event shortness of breath or cough no abdominal pain and no diarrhea has been reported Review of Systems Positive point has been mentioned in the HPI rest of the systems are negative Past Medical History Past Medical History: Cancer, COPD, CVA/TIA Additional Past Medical History / Comment(s): bladder CA, ileostomy, "something in the abdomen that they are trying to shrink" History of Any Multi-Drug Resistant Organisms: None Reported Past Surgical History: Bladder Surgery Additional Past Surgical History / Comment(s): ileostomy 06/2020 at [facility] in [facility], fatty tumor removed from rt leg, Past Anesthesia/Blood Transfusion Reactions: No Reported Reaction Past Psychological History: No Psychological Hx Reported Smoking Status: Current every day smoker Past Alcohol Use History: Rare Additional Past Alcohol Use History / Comment(s): smokes 1 PPD, started smoking age 6 or 7 Past Drug Use History: None Reported Additional Drug Use History / Comment(s): CBD gummies - Past Family History Brother(s) Family Medical History: Cancer Sister(s) Family Medical History: Cancer, Deep Vein Thrombosis (DVT) Medications and Allergies Home Medications Medication Instructions Recorded Confirmed Type Divalproex Sodium [Depakote] 125 mg PO BID 12/17/21 05/19/22 History Aspirin [Adult Low Dose Aspirin EC] 81 mg PO DAILY 04/09/22 05/19/22 History Multivitamins, Thera [Multivitamin 1 tab PO DAILY 04/09/22 05/19/22 History (formulary)] Pantoprazole [Protonix] 40 mg PO AC-BRKFST #30 tab 04/11/22 05/19/22 Rx Diphenoxylate HCl/Atropine 2 tab PO QID PRN 05/19/22 05/19/22 History [Lomotil 2.5-0.025 mg Tablet] Allergies Allergy/AdvReac Type Severity Reaction Status Date / Time codeine Allergy Itching Verified 05/19/22 17:17 Physical Exam Vitals: Vital Signs Temp Pulse Resp BP Pulse Ox 05/21/22 11:17 98.3 F 59 L 16 92/60 93 L 05/21/22 07:12 97.6 F 60 16 97/62 95 05/21/22 01:59 98.4 F 63 16 95/60 95 05/20/22 20:05 18 05/20/22 19:18 97.8 F 65 18 90/57 96 Intake and Output 05/20/22 05/21/22 05/21/22 22:59 06:59 14:59 Intake Total 1200 Output Total 325 500 Balance -325 700 Intake: Intake, IV Titration 900 Amount Sodium Chloride 0.9% 1, 900 000 ml @ 75 mls/hr IV . [id number] Rx#:[id number] Oral 300 Output: Urine 325 500 Other: Voiding Method Ileal Conduit (Left) Ileal Conduit (Left) # Bowel Movements 1 Weight 60 kg GENERAL DESCRIPTION: Middle-aged female lying in bed, no distress. No tachypnea or accessory muscle of respiration use. HEENT: Shows Pallor , no scleral icterus. Oral mucous membrane is dry. No pharyngeal erythema or thrush NECK: Trachea central, no thyromegaly. LUNGS: Unlabored breathing. Clear to auscultation anteriorly. No wheeze or crackle. HEART: S1, S2, regular rate and rhythm. No loud murmur ABDOMEN: Soft, no tenderness , guarding or rigidity, no organomegaly EXTREMITIES: No edema of feet. SKIN: No rash, no masses palpable. NEUROLOGICAL: The patient is awake, alert, oriented x3, mood and affect normal. Results CBC & Chem 7: 05/25/22 06:49 05/25/22 06:49 Labs: Abnormal Lab Results - Last 24 Hours (Table) 05/20/22 05/20/22 05/20/22 Range/Units 14:41 14:41 14:41 WBC 29.0 H (3.8-10.6) k/uL RBC 2.81 L (3.80-5.40) m/uL Hgb 9.5 L (11.4-16.0) gm/dL Hct 29.8 L (34.0-46.0) % MCV 106.0 H (80.0-100.0) fL MCH (27.0-32.0) pg MCHC (32.0-37.0) g/dL RDW (11.5-14.5) % Immature Gran # (0.00-0.04) X 10*3/uL Neutrophils # 26.0 H (1.3-7.7) k/uL Chloride 109 H (98-107) mmol/L BUN 18 H (7-17) mg/dL C-Reactive Protein 19.4 H (<1.0) mg/dL Procalcitonin 0.25 H (0.02-0.09) ng/mL 05/21/22 05/21/22 05/21/22 Range/Units 05:51 05:51 05:51 WBC 24.64 H (3.8-10.6) k/uL RBC 2.31 L (3.80-5.40) m/uL Hgb 7.8 L (11.4-16.0) gm/dL Hct 24.7 L (34.0-46.0) % MCV 106.9 H (80.0-100.0) fL MCH 33.8 H (27.0-32.0) pg MCHC 31.6 L (32.0-37.0) g/dL RDW 15.7 H (11.5-14.5) % Immature Gran # 0.27 H (0.00-0.04) X 10*3/uL Neutrophils # 21.58 H (1.3-7.7) k/uL Chloride 110 H (98-107) mmol/L BUN (7-17) mg/dL C-Reactive Protein 16.1 H (<1.0) mg/dL Procalcitonin 0.21 H (0.02-0.09) ng/mL Microbiology - Last 24 Hours (Table) 05/19/22 16:20 Blood Culture - Preliminary Blood No Growth after 24 hours 05/19/22 16:05 Blood Culture - Preliminary Blood No Growth after 24 hours 05/19/22 14:14 Urine Culture - Preliminary Urine,Voided Group D Enterococcus Assessment and Plan (1) Leukocytosis Current Visit: Yes Status: Acute Code(s): D72.829 - ELEVATED WHITE BLOOD CELL COUNT, UNSPECIFIED SNOMED Code(s): 498349257 (2) UTI (urinary tract infection) Current Visit: Yes Status: Acute Priority: High Code(s): N39.0 - URINARY TRACT INFECTION, SITE NOT SPECIFIED SNOMED Code(s): 79582499 Plan: 1patient was in the hospital with generalized weakness which is likely multifactorial patient did have a lead white count and significant positive UA c oncerning for symptomatic urinary tract infection likely from enteric pathogen with urine culture now showing Enterococcus. 2discontinue Rocephin. 3we will start the patient on Unasyn while waiting for sensitivity on this Enterococcus with the discharge antibiotic on the basis of final culture and clinical response. We will follow on clinical condition and cultures to further adjust medication i f needed Thank you for this consultation we will follow the patient along with you Time with Patient: Greater than 30
--- NOTE | 2022-05-21 15:45 | P.HPIM ---
History of Present Illness H&P Date: 05/20/22 Chief Complaint: Generalized weakness 61-year-old female with a past medical history significant for bladder cancer did have ileostomy COPD CVA TIA the patient has been brought into the hospital by the complaining of the patient becoming significantly weak in the last day or 2 and cannot even assist in transport and the patient did have episode of more vomiting and concerning for possible UTI with the same the patient was brought into the ER on arrival to the ER the patient did have a low-grade fever of 99 F the patient was not hypoxic or need for supplemental oxygen he did have white count of 25,000 which repeat was up to 29,000 creatinine was normal and BUN was mildly elevated liver enzymes are normal patient did have a positive UA blood cultures obtained which are currently pending urine is now showing Enterococcus patient is currently being treated with Rocephin Blood work completed in ED reveals a WBC of 24.6, hemoglobin of 7.8 and platelet count of 195, sodium 137, potassium 3.7, BUN/creatinine of 60/0.72 and blood glucose of 80 Review of Systems REVIEW OF SYSTEMS: CONSTITUTIONAL: No fever, no malaise, no fatigue. HEENT: No recent visual problems or hearing problems. Denied any sore throat. CARDIOVASCULAR: No chest pain, orthopnea, PND, no palpitations, no syncope. PULMONARY: No shortness of breath, no cough, no hemoptysis. GASTROINTESTINAL: No diarrhea, no nausea, no vomiting, no abdominal pain. NEUROLOGICAL: No headaches, no weakness, no numbness. HEMATOLOGICAL: Denies any bleeding or petechiae. GENITOURINARY: Denies any burning micturition, frequency, or urgency. MUSCULOSKELETAL/RHEUMATOLOGICAL: Denies any joint pain, swelling, or any muscle pain. ENDOCRINE: Denies any polyuria or polydipsia. The rest of the 14-point review of systems is negative. Past Medical History Past Medical History: Cancer, COPD, CVA/TIA Additional Past Medical History / Comment(s): bladder CA, ileostomy, "something in the abdomen that they are trying to shrink" History of Any Multi-Drug Resistant Organisms: None Reported Past Surgical History: Bladder Surgery Additional Past Surgical History / Comment(s): ileostomy 06/2020 at [facility] in [facility], fatty tumor removed from rt leg, Past Anesthesia/Blood Transfusion Reactions: No Reported Reaction Past Psychological History: No Psychological Hx Reported Smoking Status: Current every day smoker Past Alcohol Use History: Rare Additional Past Alcohol Use History / Comment(s): smokes 1 PPD, started smoking age 6 or 7 Past Drug Use History: None Reported Additional Drug Use History / Comment(s): CBD gummies - Past Family History Brother(s) Family Medical History: Cancer Sister(s) Family Medical History: Cancer, Deep Vein Thrombosis (DVT) Medications and Allergies Home Medications Medication Instructions Recorded Confirmed Type Divalproex Sodium [Depakote] 125 mg PO BID 12/17/21 05/19/22 History Aspirin [Adult Low Dose Aspirin EC] 81 mg PO DAILY 04/09/22 05/19/22 History Multivitamins, Thera [Multivitamin 1 tab PO DAILY 04/09/22 05/19/22 History (formulary)] Pantoprazole [Protonix] 40 mg PO AC-BRKFST #30 tab 04/11/22 05/19/22 Rx Diphenoxylate HCl/Atropine 2 tab PO QID PRN 05/19/22 05/19/22 History [Lomotil 2.5-0.025 mg Tablet] Allergies Allergy/AdvReac Type Severity Reaction Status Date / Time codeine Allergy Itching Verified 05/19/22 17:17 Physical Exam Vitals: Vital Signs Temp Pulse Pulse Resp BP BP BP 05/20/22 12:41 97.9 F 58 L 14 92/62 05/20/22 09:19 05/20/22 07:31 98.1 F 67 16 79/50 87/54 05/20/22 02:19 98.1 F 62 14 90/53 05/20/22 00:41 98.4 F 68 16 91/56 05/20/22 00:13 68 05/19/22 21:00 91/56 05/19/22 20:00 98.4 F 68 15 97/58 83/52 05/19/22 19:44 58 L 18 97/58 05/19/22 19:00 88/55 05/19/22 18:00 70 18 89/50 05/19/22 17:00 66 18 91/56 05/19/22 16:00 66 18 92/53 05/19/22 13:49 99 F 87 18 101/67 Pulse Ox 05/20/22 12:41 99 03/31/23 09:19 97 05/20/22 07:31 97 05/20/22 02:19 96 05/20/22 00:41 99 05/20/22 00:13 05/19/22 21:00 99 05/19/22 20:00 97 05/19/22 19:44 95 05/19/22 19:00 05/19/22 18:00 96 05/19/22 17:00 96 05/19/22 16:00 94 L 05/19/22 13:49 96 Intake and Output 05/19/22 05/20/22 05/20/22 22:59 06:59 14:59 Output Total 200 200 Balance -200 -200 Output: Urine 200 200 Other: Voiding Method Ileal Conduit (Left) Ileal Conduit (Left) # Bowel Movements 1 Weight 52.617 kg PHYSICAL EXAMINATION: GENERAL: The patient is alert and oriented x3, not in any acute distress. Well developed, well nourished. HEENT: Pupils are round and equally reacting to light. EOMI. No scleral icterus. No conjunctival pallor. Normocephalic, atraumatic. No pharyngeal erythema. No thyromegaly. CARDIOVASCULAR: S1 and S2 present. No murmurs, rubs, or gallops. PULMONARY: Chest is clear to auscultation, no wheezing or crackles. ABDOMEN: Soft, nontender, nondistended, normoactive bowel sounds. No palpable organomegaly. MUSCULOSKELETAL: No joint swelling or deformity. EXTREMITIES: No cyanosis, clubbing, or pedal edema. NEUROLOGICAL: Gross neurological examination did not reveal any focal deficits. SKIN: No rashes. Results CBC & Chem 7: 05/21/22 05:51 05/21/22 05:51 Labs: Abnormal Lab Results - Last 24 Hours (Table) 05/19/22 05/19/22 05/19/22 Range/Units 14:10 14:10 14:10 WBC 25.5 H (3.8-10.6) k/uL RBC 2.89 L (3.80-5.40) m/uL Hgb 10.0 L (11.4-16.0) gm/dL Hct 29.7 L (34.0-46.0) % MCV 103.1 H (80.0-100.0) fL Neutrophils # 23.0 H (1.3-7.7) k/uL INR 1.2 H (<1.2) APTT 21.3 L (22.0-30.0) sec BUN 23 H (7-17) mg/dL Alkaline Phosphatase 219 H (38-126) U/L Albumin 3.2 L (3.5-5.0) g/dL Urine Appearance (Clear) Urine Protein (Negative) Urine Nitrite (Negative) Ur Leukocyte Esterase (Negative) Urine WBC (0-5) /hpf Amorphous Sediment (None) /hpf Urine Bacteria (None) /hpf Urine Mucus (None) /hpf 05/19/22 Range/Units 14:14 WBC (3.8-10.6) k/uL RBC (3.80-5.40) m/uL Hgb (11.4-16.0) gm/dL Hct (34.0-46.0) % MCV (80.0-100.0) fL Neutrophils # (1.3-7.7) k/uL INR (<1.2) APTT (22.0-30.0) sec BUN (7-17) mg/dL Alkaline Phosphatase (38-126) U/L Albumin (3.5-5.0) g/dL Urine Appearance Turbid H (Clear) Urine Protein Trace H (Negative) Urine Nitrite Positive H (Negative) Ur Leukocyte Esterase Small H (Negative) Urine WBC 61 H (0-5) /hpf Amorphous Sediment Few H (None) /hpf Urine Bacteria Rare H (None) /hpf Urine Mucus Occasional H (None) /hpf Microbiology - Last 24 Hours (Table) 05/19/22 14:14 Urine Culture - Preliminary Urine,Voided Assessment and Plan Assessment: 1. Leukocytosis/sepsis; likely related to UTI - Patient remains on IV antibiotics; we will monitor CBC, CRP and pro-calcitonin - Blood cultures and urine cultures obtained 2. Complicated UTI; urine culture is growing enterococcus; patient was initia lly started on IV Rocephin which has been discontinued per ID recommendations; patient is placed on Unasyn; final culture and sensitivity report is pending 3. Generalized weakness/debility 4. COPD; not in exacerbation; continue with home inhaler therapy 5. Gastroesophageal reflux disease; Protonix 40 mg daily 6. History of CVA/TIA; patient is taking aspirin 81 mg daily; currently not on any statin therapy 7. History of invasive bladder cancer diagnosed in April 2020 - Patient is status post tracheostomy DVT prophylaxis; SCDs CODE STATUS; full code
[2022-05-22] MEDS: AMPICILLIN-SULBACTAM 3 GM in SODIUM CHLORIDE 0.9% 100 ML IVPB SCH ×4 (05:44→23:31)
[2022-05-22] MEDS: ASPIRIN 81 MG PO SCH (08:57)
[2022-05-22] MEDS: PANTOPRAZOLE 40 MG TABLET PO SCH (08:57)
[2022-05-22] MEDS: DIVALPROEX SPRINKLE 125 MG CAP.SPRINK PO SCH ×2 (08:57→22:32)
[2022-05-22] MEDS: MULTIVITAMINS, THERA 1 EACH TAB PO SCH (08:57)
[2022-05-22 09:20] LABS: Basophils % (A) 0.4 %; Eosinophils # (A) 0.11 X 10*3/uL (0.04-0.35); Eosinophils % (A) 0.4 %; HCT 24.8 % (37.2-46.3); Immature Grans, Automated 1.3 %; Lymphocytes # (A) 2.13 X 10*3/uL (0.90-5.00); Lymphocytes % (A) 8.1 %; MCH 34.2 pg (27.0-32.0); MCHC 32.3 g/dL (32.0-37.0); Monocytes # (A) 0.76 X 10*3/uL (0.20-1.00); Monocytes % (A) 2.9 %; NRBC Per 100 WBC 0 /100 WBCS (0.0-0.0); Neutrophils # (A) 22.75 X 10*3/uL (1.80-7.70); Neutrophils % (A) 86.9 %; Platelet Count 191 X 10*3/uL (140-440); RBC 2.34 X 10*6/uL (4.10-5.20); RDW 15.7 % (11.5-14.5); WBC 26.18 X 10*3/uL (4.50-10.00)
[2022-05-22 09:33] LABS: African American GFR (CKD) 100.6 (60.0-200.0); Anion Gap 12.5 mmol/L (10.00-18.00); BUN/Creat Ratio 14.67 Ratio (12.00-20.00); Blood Urea Nitrogen 10.8 mg/dL (9.0-27.0); Calcium 8.8 mg/dL (8.7-10.3); Carbon Dioxide 21.3 mmol/L (20.0-27.5); Non-African American GFR(CKD) 86.8 (60.0-200.0); Potassium 3.2 mmol/L (3.5-5.5)
[2022-05-22] MEDS ORDERED: POTASSIUM CHLORIDE ER 10 MEQ TAB.ER.PRT PO STA (12:22)
--- NOTE | 2022-05-22 15:54 | P.PN ---
Subjective Progress Note Date: 05/22/22 Principal diagnosis: Leukocytosis and enterococcus urinary tract infection Patient is a 61-year-old female with a past medical history significant for bladder cancer did have ileostomy COPD CVA TIA the patient has been brought into the hospital by the complaining of the patient becoming significantly weakness, patient noticed to have evidence of UTI with urine showing enterococcus. on today's evaluation that is 05/22/2022, the patient is afebrile patient is breathing comfortably on room air and did mention feeling slightly better no chest pain shortness of breath or cough no abdominal pain and no diarrhea Objective - Vital Signs Vital signs: Vital Signs Temp 98.1 F 05/22/22 11:22 Pulse 55 L 05/22/22 11:22 Resp 18 05/22/22 11:22 BP 92/59 05/22/22 11:22 Pulse Ox 97 05/22/22 11:22 FiO2 21 05/22/22 08:01 Intake & Output 05/21/22 05/22/22 05/22/22 18:59 06:59 18:59 Intake Total 150 1100 Output Total 1360 600 Balance 150 -260 -600 Weight 61 kg Intake: Intake, IV Titration 150 100 Amount Ampicillin-Sulbactam 3 gm 100 100 In Sodium Chloride 0.9% 100 ml @ 200 mls/hr IVPB Q6HR [facility] Rx#:[id number] cefTRIAXone 2 gm In 50 Sodium Chloride 0.9% 50 ml @ 100 mls/hr IVPB Q24HR [facility] Rx#:[id number] Oral 1000 Output: Urine 1360 600 Other: Voiding Method Ileal Conduit (Left) Ileal Conduit (Left) Ileal Conduit (Left) # Voids 1 # Bowel Movements 1 1 - Exam GENERAL DESCRIPTION: Middle-age female lying in bed in no distress RESPIRATORY SYSTEM: Unlabored breathing , decreased breath sounds at bases HEART: S1 S2 regular rate and rhythm , ABDOMEN: Soft , no tenderness EXTREMITIES: No edema feet - Labs CBC & Chem 7: 05/22/22 06:29 05/22/22 06:29 Labs: Abnormal Lab Results - Last 24 Hours (Table) 05/22/22 05/22/22 Range/Units 06:29 06:29 WBC 26.18 H (4.50-10.00) X 10*3/uL RBC 2.34 L (4.10-5.20) X 10*6/uL Hgb 8.0 L (12.0-15.0) g/dL Hct 24.8 L (37.2-46.3) % MCV 106.0 H (80.0-97.0) fL MCH 34.2 H (27.0-32.0) pg RDW 15.7 H (11.5-14.5) % Immature Gran # 0.33 H (0.00-0.04) X 10*3/uL Neutrophils # 22.75 H (1.80-7.70) X 10*3/uL Potassium 3.2 L (3.5-5.5) mmol/L Microbiology - Last 24 Hours (Table) 05/19/22 16:20 Blood Culture - Preliminary Blood No Growth after 48 hours 05/19/22 16:05 Blood Culture - Preliminary Blood No Growth after 48 hours Assessment and Plan (1) UTI (urinary tract infection) Current Visit: Yes Status: Acute Priority: High Code(s): N39.0 - URINARY TRACT INFECTION, SITE NOT SPECIFIED SNOMED Code(s): 65057539 Plan: 1patient was in the hospital with generalized weakness which is likely multifactorial patient did have a lead white count and significant positive UA concerning for symptomatic urinary tract infection likely from enteric pathogen with urine culture now showing Enterococcus. 2patient to continue with Unasyn while waiting for sensitivity on this Enterococcus with the discharge antibiotic on the basis of final culture and clinical response. 3patient still have significantly elevated white count will check an ultrasound of the kidney to make sure no evidence of any abscess or obstructive uropathy also advised to change her Ng catheter at the bedside questions were answered Time with Patient: Less than 30
--- NOTE | 2022-05-22 17:10 | P.PN ---
Subjective Progress Note Date: 05/21/22 61-year-old female with a past medical history significant for bladder cancer did have ileostomy COPD CVA TIA the patient has been brought into the hospital by the complaining of the patient becoming significantly weak in the last day or 2 and cannot even assist in transport and the patient did have episode of more vomiting and concerning for possible UTI with the same the patient was brought into the ER on arrival to the ER the patient did have a low-grade fever of 99 F the patient was not hypoxic or need for supplemental oxygen he did have white count of 25,000 which repeat was up to 29,000 creatinine was normal and BUN was mildly elevated liver enzymes are normal patient did have a positive UA blood cultures obtained which are currently pending urine is now showing Enterococcus patient is currently being treated with Rocephin Blood work completed in ED reveals a WBC of 24.6, hemoglobin of 7.8 and platelet count of 195, sodium 137, potassium 3.7, BUN/creatinine of 60/0.72 and blood glucose of 80 Objective - Vital Signs Vital signs: Vital Signs Temp 97.6 F 05/21/22 07:12 Pulse 60 05/21/22 07:12 Resp 16 05/21/22 07:12 BP 97/62 05/21/22 07:12 Pulse Ox 95 05/21/22 07:12 FiO2 Intake & Output 05/20/22 05/21/22 05/21/22 18:59 06:59 18:59 Intake Total 1200 Output Total 325 500 Balance -325 700 Weight 60 kg Intake: Intake, IV Titration 900 Amount Sodium Chloride 0.9% 1, 900 000 ml @ 75 mls/hr IV . [id number] ONE Rx#:[id number] Oral 300 Output: Urine 325 500 Other: Voiding Method Ileal Conduit (Left) Ileal Conduit (Left) Ileal Conduit (Left) # Bowel Movements 1 - Exam PHYSICAL EXAMINATION: GENERAL: The patient is alert and oriented x3, not in any acute distress. Well developed, well nourished. HEENT: Pupils are round and equally reacting to light. EOMI. No scleral icterus. No conjunctival pallor. Normocephalic, atraumatic. No pharyngeal erythema. No thyromegaly. CARDIOVASCULAR: S1 and S2 present. No murmurs, rubs, or gallops. PULMONARY: Chest is clear to auscultation, no wheezing or crackles. ABDOMEN: Soft, nontender, nondistended, normoactive bowel sounds. No palpable organomegaly. MUSCULOSKELETAL: No joint swelling or deformity. EXTREMITIES: No cyanosis, clubbing, or pedal edema. NEUROLOGICAL: Gross neurological examination did not reveal any focal deficits. SKIN: No rashes. - Labs CBC & Chem 7: 05/22/22 06:29 05/22/22 06:29 Labs: Abnormal Lab Results - Last 24 Hours (Table) 05/20/22 05/20/22 05/20/22 Range/Units 14:41 14:41 14:41 WBC 29.0 H (3.8-10.6) k/uL RBC 2.81 L (3.80-5.40) m/uL Hgb 9.5 L (11.4-16.0) gm/dL Hct 29.8 L (34.0-46.0) % MCV 106.0 H (80.0-100.0) fL Neutrophils # 26.0 H (1.3-7.7) k/uL Chloride 109 H (98-107) mmol/L BUN 18 H (7-17) mg/dL C-Reactive Protein 19.4 H (<1.0) mg/dL Procalcitonin 0.25 H (0.02-0.09) ng/mL 05/21/22 Range/Units 05:51 WBC (3.8-10.6) k/uL RBC (3.80-5.40) m/uL Hgb (11.4-16.0) gm/dL Hct (34.0-46.0) % MCV (80.0-100.0) fL Neutrophils # (1.3-7.7) k/uL Chloride 110 H (98-107) mmol/L BUN (7-17) mg/dL C-Reactive Protein 16.1 H (<1.0) mg/dL Procalcitonin (0.02-0.09) ng/mL Microbiology - Last 24 Hours (Table) 05/19/22 16:20 Blood Culture - Preliminary Blood No Growth after 24 hours 05/19/22 16:05 Blood Culture - Preliminary Blood No Growth after 24 hours 05/19/22 14:14 Urine Culture - Preliminary Urine,Voided Group D Enterococcus Assessment and Plan Assessment: 1. Leukocytosis/sepsis; likely related to UTI - Patient remains on IV antibiotics; we will monitor CBC, CRP and pro-calcitonin - Blood cultures and urine cultures obtained 2. Complicated UTI; urine culture is growing enterococcus; patient was initially started on IV Rocephin which has been discontinued per ID recommendations; patient is placed on Unasyn; final culture and sensitivity report is pending 3. Generalized weakness/debility 4. COPD; not in exacerbation; continue with home inhaler therapy 5. Gastroesophageal reflux disease; Protonix 40 mg daily 6. History of CVA/TIA; patient is taking aspirin 81 mg daily; currently not on any statin therapy 7. History of invasive bladder cancer diagnosed in April 2020 - Patient is status post tracheostomy DVT prophylaxis; SCDs CODE STATUS; full code
--- NOTE | 2022-05-22 17:12 | P.PN ---
Subjective Progress Note Date: 05/22/22 Principal diagnosis: UTI/sepsis; group D enterococcus Generalized weakness/debility Leukocytosis Hypokalemia 61-year-old female with a past medical history significant for bladder cancer did have ileostomy COPD CVA TIA the patient has been brought into the hospital by the complaining of the patient becoming significantly weak in the last day or 2 and cannot even assist in transport and the patient did have episode of more vomiting and concerning for possible UTI with the same the patient was brought into the ER on arrival to the ER the patient did have a low-grade fever of 99 F the patient was not hypoxic or need for supplemental oxygen he did have white count of 25,000 which repeat was up to 29,000 creatinine was normal and BUN was mildly elevated liver enzymes are normal patient did have a positive UA blood cultures obtained which are currently pending urine is now showing Enterococcus patient is currently being treated with Rocephin Blood work completed in ED reveals a WBC of 24.6, hemoglobin of 7.8 and platelet count of 195, sodium 137, potassium 3.7, BUN/creatinine of 60/0.72 and blood glucose of 80 05/22/2022 the patient is afebrile patient is breathing comfortably on room air and did mention feeling slightly better no chest pain shortness of breath or cough no abdominal pain and no diarrhea patient was in the hospital with generalized weakness which is likely multifactorial patient did have a lead white count and significant positive UA concerning for symptomatic urinary tract infection likely from enteric pathogen with urine culture now showing Enterococcus. patient to continue with Unasyn while waiting for sensitivity on this Enterococcus with the discharge antibiotic on the basis of final culture and clinical response. patient still have significantly elevated white count will check an ultrasound of the kidney to make sure no evidence of any abscess or obstructive uropathy also advised to change her Ng catheter Objective - Vital Signs Vital signs: Vital Signs Temp 98.1 F 05/22/22 11:22 Pulse 55 L 05/22/22 11:22 Resp 18 05/22/22 11:22 BP 92/59 05/22/22 11:22 Pulse Ox 97 05/22/22 11:22 FiO2 21 05/22/22 08:01 Intake & Output 05/21/22 05/22/22 05/22/22 18:59 06:59 18:59 Intake Total 150 1100 Output Total 1360 600 Balance 150 -260 -600 Weight 61 kg Intake: Intake, IV Titration 150 100 Amount Ampicillin-Sulbactam 3 gm 100 100 In Sodium Chloride 0.9% 100 ml @ 200 mls/hr IVPB Q6HR [facility] Rx#:[id number] cefTRIAXone 2 gm In 50 Sodium Chloride 0.9% 50 ml @ 100 mls/hr IVPB Q24HR [facility] Rx#:[id number] Oral 1000 Output: Urine 1360 600 Other: Voiding Method Ileal Conduit (Left) Ileal Conduit (Left) Ileal Conduit (Left) # Voids 1 # Bowel Movements 1 - Exam PHYSICAL EXAMINATION: GENERAL: The patient is alert and oriented x3, not in any acute distress. Well developed, well nourished. HEENT: Pupils are round and equally reacting to light. EOMI. No scleral icterus. No conjunctival pallor. Normocephalic, atraumatic. No pharyngeal erythema. No thyromegaly. CARDIOVASCULAR: S1 and S2 present. No murmurs, rubs, or gallops. PULMONARY: Chest is clear to auscultation, no wheezing or crackles. ABDOMEN: Soft, nontender, nondistended, normoactive bowel sounds. No palpable organomegaly. MUSCULOSKELETAL: No joint swelling or deformity. EXTREMITIES: No cyanosis, clubbing, or pedal edema. NEUROLOGICAL: Gross neurological examination did not reveal any focal deficits. SKIN: No rashes. - Labs CBC & Chem 7: 05/22/22 06:29 05/22/22 06:29 Labs: Abnormal Lab Results - Last 24 Hours (Table) 05/22/22 05/22/22 Range/Units 06:29 06:29 WBC 26.18 H (4.50-10.00) X 10*3/uL RBC 2.34 L (4.10-5.20) X 10*6/uL Hgb 8.0 L (12.0-15.0) g/dL Hct 24.8 L (37.2-46.3) % MCV 106.0 H (80.0-97.0) fL MCH 34.2 H (27.0-32.0) pg RDW 15.7 H (11.5-14.5) % Immature Gran # 0.33 H (0.00-0.04) X 10*3/uL Neutrophils # 22.75 H (1.80-7.70) X 10*3/uL Potassium 3.2 L (3.5-5.5) mmol/L Microbiology - Last 24 Hours (Table) 05/19/22 16:20 Blood Culture - Preliminary Blood No Growth after 48 hours 05/19/22 16:05 Blood Culture - Preliminary Blood No Growth after 48 hours Assessment and Plan Assessment: 1. Leukocytosis/sepsis; likely related to UTI - Patient remains on IV antibiotics; we will monitor CBC, CRP and pro-calcitonin - Blood cultures and urine cultures obtained 2. Complicated UTI; urine culture is growing enterococcus; patient was initially started on IV Rocephin which has been discontinued per ID recommendations; patient is placed on Unasyn; final culture and sensitivity report is pending 3. Generalized weakness/debility 4. COPD; not in exacerbation; continue with home inhaler therapy 5. Gastroesophageal reflux disease; Protonix 40 mg daily 6. History of CVA/TIA; patient is taking aspirin 81 mg daily; currently not on any statin therapy 7. History of invasive bladder cancer diagnosed in April 2020 - Patient is status post tracheostomy DVT prophylaxis; SCDs CODE STATUS; full code
[2022-05-22 17:48] LABS: Appearance,Urine Clear (Clear); Bilirubin,Urine Negative (Negative); Blood,Urine Negative (Negative); Color,Urine Yellow; Glucose,Urine (UA) Negative (Negative); Ketones,Urine Negative (Negative); Leukocyte Esterase,Urine Negative (Negative); Nitrite,Urine Negative (Negative); Protein,Urine Trace (Negative); Specific Gravity,Urine 1.018 (1.001-1.035); Urobilinogen,Urine <2.0 mg/dL (<2.0)
[2022-05-23] MEDS: AMPICILLIN-SULBACTAM 3 GM in SODIUM CHLORIDE 0.9% 100 ML IVPB SCH ×3 (05:48→17:11)
[2022-05-23 08:51] LABS: Basophils # (A) 0.08 X 10*3/uL (0.00-0.10); Basophils % (A) 0.3 %; Eosinophils % (A) 0.4 %; HCT 23.7 % (37.2-46.3); HGB 7.3 g/dL (12.0-15.0); Immature Grans, Automated 0.7 %; Lymphocytes # (A) 2.47 X 10*3/uL (0.90-5.00); Lymphocytes % (A) 10.5 %; MCHC 30.8 g/dL (32.0-37.0); MCV 107.2 fL (80.0-97.0); Mean Platelet Volume 10.1 fL (9.5-12.2); Monocytes # (A) 0.81 X 10*3/uL (0.20-1.00); Monocytes % (A) 3.4 %; NRBC Per 100 WBC 0 /100 WBCS (0.0-0.0); Neutrophils # (A) 19.91 X 10*3/uL (1.80-7.70); Neutrophils % (A) 84.7 %; Platelet Count 169 X 10*3/uL (140-440); RBC 2.21 X 10*6/uL (4.10-5.20); WBC 23.54 X 10*3/uL (4.50-10.00)
[2022-05-23] MEDS: DIVALPROEX SPRINKLE 125 MG CAP.SPRINK PO SCH ×2 (09:03→20:37)
[2022-05-23] MEDS: MULTIVITAMINS, THERA 1 EACH TAB PO SCH (09:03)
[2022-05-23] MEDS: PANTOPRAZOLE 40 MG TABLET PO SCH (09:03)
[2022-05-23] MEDS: ASPIRIN 81 MG PO SCH (09:03)
--- NOTE | 2022-05-23 09:21 | US ---
EXAMINATION TYPE: US kidneys/renal and bladder DATE OF EXAM: 05/23/2022 COMPARISON: CT 05/10/22 CLINICAL HISTORY: uti and bacteremia. UTI and bacteremia. EXAM MEASUREMENTS: Right Kidney: 10.8 x 5.1 x 4.4 cm Left Kidney: 10.2 x 5.0 x 4.9 cm Right Kidney: Dilated collecting system appearance of hydronephrosis Left Kidney: Dilated collecting system appearance of hydronephrosis.Very limited due to gas and ri b shadow. Bladder: Not seen Bilateral Jets seen: No IMPRESSION: 1. Mild bilateral hydronephrosis. An obstructing etiology is not identified on this ultrasound exam.
[2022-05-23 09:28] LABS: African American GFR (CKD) 106.9 (60.0-200.0); Albumin 2.6 g/dL (3.8-4.9); Anion Gap 9.5 mmol/L (10.00-18.00); BUN/Creat Ratio 16.43 Ratio (12.00-20.00); Blood Urea Nitrogen 11.5 mg/dL (9.0-27.0); C Reactive Protein 11.2 mg/dL (0.00-0.80); Calcium 8.9 mg/dL (8.7-10.3); Carbon Dioxide 23.5 mmol/L (20.0-27.5); Globulin 2.6 g/dL (1.6-3.3); Non-African American GFR(CKD) 92.2 (60.0-200.0); Potassium 3.3 mmol/L (3.5-5.5); Total Bilirubin 0.2 mg/dL (0.30-1.20); Total Protein 5.2 g/dL (6.2-8.2)
[2022-05-23] MEDS: POTASSIUM CHLORIDE ER 20 MEQ TAB.ER PO SCH ×3 (11:44→15:55)
[2022-05-23] MEDS: SODIUM CHLORIDE 0.9% 1,000 ML IV SCH (14:45)
[2022-05-23] MEDS: MIDODRINE 5 MG TAB PO SCH (15:55)
[2022-05-23] MEDS ORDERED: SODIUM CHLORIDE 0.9% 500 ML 500 ML IV ONE (17:15)
--- NOTE | 2022-05-23 17:16 | P.PN ---
Subjective Progress Note Date: 05/23/22 61-year-old female with a past medical history significant for bladder cancer did have ileostomy COPD CVA TIA the patient has been brought into the hospital by the complaining of the patient becoming significantly weak in the last day or 2 and cannot even assist in transport and the patient did have episode of more vomiting and concerning for possible UTI with the same the patient was brought into the ER on arrival to the ER the patient did have a low- grade fever of 99 F the patient was not hypoxic or need for supplemental oxygen he did have white count of 25,000 which repeat was up to 29,000 creatinine was normal and BUN was mildly elevated liver enzymes are normal patient did have a positive UA blood cultures obtained which are currently pending urine is now showing Enterococcus patient is currently being treated with Rocephin Blood work completed in ED reveals a WBC of 24.6, hemoglobin of 7.8 and platelet count of 195, sodium 137, potassium 3.7, BUN/creatinine of 60/0.72 and blood glucose of 80 05/22/2022 the patient is afebrile patient is breathing comfortably on room air and did mention feeling slightly better no chest pain shortness of breath or cough no abdominal pain and no diarrhea patient was in the hospital with generalized weakness which is likely multif actorial patient did have a lead white count and significant positive UA concerning for symptomatic urinary tract infection likely from enteric pathogen with urine culture now showing Enterococcus. patient to continue with Unasyn while waiting for sensitivity on this Enterococcus with the discharge antibiotic on the basis of final culture and clinical response. patient still have significantly elevated white count will check an ultrasound of the kidney to make sure no evidence of any abscess or obstructive uropathy also advised to change her Ng catheter 05/23/2022 Patient is evaluated today up in the chair. Assisted back to bed, patient is weak. Repeat urinalysis shows improvement. Continues on IV unasyn with ID following closely. Renal ultrasound showing mild bilateral hydronephrosis. No obstructing etiology present on ultrasound. Urology consulted for further review. White count is 23.54 today. Hemoglobin 7.3. Kidney function stable. Blood pressure on the lower side at 82/55. Review of Systems Constitutional: Denied any fatigue denied any fever. Cardio vascular: denied any chest pain, palpitations Gastrointestinal: denied any nausea, vomiting, diarrhea Pulmonary: Denied any shortness of breath cough Neurologic denied any new focal deficits All inpatient medications were reviewed and appropriate changes in these medications as dictated in the interval history and assessment and plan. PHYSICAL EXAMINATION: GENERAL: The patient is alert and oriented x2, not in any acute distress. Well developed, well nourished. HEENT: Pupils are round and equally reacting to light. EOMI. No scleral icterus. No conjunctival pallor. Normocephalic, atraumatic. No pharyngeal erythema. No thyromegaly. CARDIOVASCULAR: S1 and S2 present. No murmurs, rubs, or gallops. PULMONARY: Chest is clear to auscultation, no wheezing or crackles. ABDOMEN: Soft, nontender, nondistended, normoactive bowel sounds. No palpable organomegaly. Urostomy present RUQ. Debris in drainage bag. MUSCULOSKELETAL: No joint swelling or deformity. EXTREMITIES: No cyanosis, clubbing, or pedal edema. NEUROLOGICAL: Gross neurological examination did not reveal any focal deficits. Apashic. Weak. SKIN: No rashes. Assessment and Plan Assessment Urinary tract infection with sepsis present on admission urine culture showing enterococcus Leukocytosis secondary to above Mild bilateral hydronephrosis Hypotension likely poor oral intake History of invasive bladder cancer with urostomy COPD not in acute exacerbation GERD History of CVA/TIA with residual aphasia on aspirin 81 mg daily, patient was on a statin in the past follow up with family why patient is currently not on. Medical debility and weakness GI prophylaxis Plan Continue IV antibiotics ID following Blood culture negative so far and pending final Repeat labs in AM Continue IV fluids and give fluid bolus Urology consult PT/OT The impression and plan of care has been dictated by Sanam Chacko, Nurse Practitioner as directed. Dr. Bella MD I have performed a history and physical examination and medical decision making of this patient, discussed the same with the dictator, and agree with the dictators assessment and plan as written, documented as a scribe. Based on total visit time, I have performed more than 50% of this visit. Objective - Vital Signs Vital signs: Vital Signs Temp 98.1 F 05/23/22 11:33 Pulse 62 05/23/22 11:33 Resp 16 05/23/22 11:33 BP 82/55 05/23/22 11:33 Pulse Ox 96 05/23/22 11:33 FiO2 21 05/22/22 08:01 Intake & Output 05/22/22 05/23/22 05/23/22 18:59 06:59 18:59 Intake Total 100 Output Total 600 600 Balance -500 -600 Weight 62.5 kg Intake: Intake, IV Titration 100 Amount Ampicillin-Sulbactam 3 gm 100 In Sodium Chloride 0.9% 100 ml @ 200 mls/hr IVPB Q6HR [facility] Rx#:[id number] Output: Urine 600 600 Other: Voiding Method Ileal Conduit (Left) Ileal Conduit (Left) Ileal Conduit (Left) # Bowel Movements 1 1 - Labs CBC & Chem 7: 05/23/22 04:30 05/23/22 04:30 Labs: Abnormal Lab Results - Last 24 Hours (Table) 05/22/22 05/23/22 05/23/22 Range/Units 17:30 04:30 04:30 WBC 23.54 H (4.50-10.00) X 10*3/uL RBC 2.21 L (4.10-5.20) X 10*6/uL Hgb 7.3 L (12.0-15.0) g/dL Hct 23.7 L (37.2-46.3) % MCV 107.2 H (80.0-97.0) fL MCH 33.0 H (27.0-32.0) pg MCHC 30.8 L (32.0-37.0) g/dL RDW 16.0 H (11.5-14.5) % Immature Gran # 0.17 H (0.00-0.04) X 10*3/uL Neutrophils # 19.91 H (1.80-7.70) X 10*3/uL Potassium 3.3 L (3.5-5.5) mmol/L Anion Gap 9.50 L (10.00-18.00) mmol/L Total Bilirubin 0.20 L (0.30-1.20) mg/dL Alkaline Phosphatase 155 H (41-126) U/L C-Reactive Protein 11.20 H (0.00-0.80) mg/dL Total Protein 5.2 L (6.2-8.2) g/dL Albumin 2.6 L (3.8-4.9) g/dL Albumin/Globulin Ratio 1.00 L (1.60-3.17) g/dL Urine Protein Trace H (Negative) Microbiology - Last 24 Hours (Table) 05/19/22 14:14 Urine Culture - Final Urine,Voided Enterococcus faecalis 05/19/22 16:20 Blood Culture - Preliminary Blood No Growth after 72 hours 05/19/22 16:05 Blood Culture - Preliminary Blood No Growth after 72 hours Assessment and Plan Time with Patient: Less than 30
[2022-05-24] MEDS: AMPICILLIN-SULBACTAM 3 GM in SODIUM CHLORIDE 0.9% 100 ML IVPB SCH ×5 (00:04→23:31)
[2022-05-24] MEDS: SODIUM CHLORIDE 0.9% 1,000 ML IV SCH ×3 (04:16→23:31)
[2022-05-24] MEDS: MIDODRINE 5 MG TAB PO SCH ×3 (08:41→17:53)
[2022-05-24] MEDS: MULTIVITAMINS, THERA 1 EACH TAB PO SCH (08:42)
[2022-05-24] MEDS: ASPIRIN 81 MG PO SCH (08:42)
[2022-05-24] MEDS: DIVALPROEX SPRINKLE 125 MG CAP.SPRINK PO SCH ×2 (08:42→19:54)
[2022-05-24] MEDS: PANTOPRAZOLE 40 MG TABLET PO SCH (08:42)
[2022-05-24 08:59] LABS: Basophils % (A) 0 %; Eosinophils # (A) 0.1 k/uL (0-0.7); Eosinophils % (A) 1 %; HGB 8.5 gm/dL (11.4-16.0); Lymphocytes # (A) 1.4 k/uL (1.0-4.8); Lymphocytes % (A) 6 %; MCH 34.2 pg (25.0-35.0); MCHC 32.7 g/dL (31.0-37.0); MCV 104.8 fL (80.0-100.0); Macrocytosis Moderate; Mean Platelet Volume 8.4; Monocytes # (A) 0.6 k/uL (0-1.0); Monocytes % (A) 3 %; Neutrophils # (A) 20.4 k/uL (1.3-7.7); Neutrophils % (A) 90 %; Platelet Count 193 k/uL (150-450); RBC 2.48 m/uL (3.80-5.40); RDW 15.7 % (11.5-15.5); WBC 22.8 k/uL (3.8-10.6)
--- NOTE | 2022-05-24 11:02 | P.GSCN ---
History of Present Illness Consult date: 05/24/22 Reason for Consult: bilateral hydronephrosis History of present illness: This is a 61 yo female with hx of bladder cancer, she is admitted to the hospital with UTI. Urology is consulted for bilateral hydronephrosis seen on U/S. She has hx of T4 bladder cancer S/P radical cystectomy with an ileal conduit in 04/2020 at [facility] by Dr Vincent. She has subsquently developed recurrence within the surgical bed and had evidence of continued progression based on imaging in 04/2022. Underwent renal U/S which showed evidence of bilateral hydronephrosis. Denies any flank pain, gross hematuria or decreased urine output. her creat is stable at baseline at 0.7. Her CT showed no hydronephrois, and no evidence of ureteral obstruction secondary to the pelvic mass Review of Systems - Constitutional Reports anorexia, Reports fatigue, Denies chills, Denies fever - Cardiovascular Denies chest pain, Denies shortness of breath - Respiratory Denies cough, Denies 7 - Gastrointestinal Reports as per HPI - Genitourinary Genitourinary: Denies dysuria, Denies hematuria - Integumentary Denies rash, Denies unusual bruising Past Medical History Past Medical History: Cancer, COPD, CVA/TIA Additional Past Medical History / Comment(s): bladder CA, ileostomy, "something in the abdomen that they are trying to shrink" History of Any Multi-Drug Resistant Organisms: None Reported Past Surgical History: Bladder Surgery Additional Past Surgical History / Comment(s): ileostomy 06/2020 at [facility] in [facility], fatty tumor removed from rt leg, Past Anesthesia/Blood Transfusion Reactions: No Reported Reaction Past Psychological History: No Psychological Hx Reported Smoking Status: Current every day smoker Past Alcohol Use History: Rare Additional Past Alcohol Use History / Comment(s): smokes 1 PPD, started smoking age 6 or 7 Past Drug Use History: None Reported Additional Drug Use History / Comment(s): CBD gummies - Past Family History Brother(s) Family Medical History: Cancer Sister(s) Family Medical History: Cancer, Deep Vein Thrombosis (DVT) Medications and Allergies Home Medications Medication Instructions Recorded Confirmed Type Divalproex Sodium [Depakote] 125 mg PO BID 12/17/21 05/19/22 History Aspirin [Adult Low Dose Aspirin EC] 81 mg PO DAILY 04/09/22 05/19/22 History Multivitamins, Thera [Multivitamin 1 tab PO DAILY 04/09/22 05/19/22 History (formulary)] Pantoprazole [Protonix] 40 mg PO AC-BRKFST #30 tab 04/11/22 05/19/22 Rx Diphenoxylate HCl/Atropine 2 tab PO QID PRN 05/19/22 05/19/22 History [Lomotil 2.5-0.025 mg Tablet] Allergies Allergy/AdvReac Type Severity Reaction Status Date / Time codeine Allergy Itching Verified 05/19/22 17:17 Surgical - Exam Vital Signs Temp Pulse Resp BP Pulse Ox 99 F 87 18 101/67 96 05/19/22 13:49 05/19/22 13:49 05/19/22 13:49 05/19/22 13:49 05/19/22 13:49 - General no distress, no pain - Eyes normal ocular movement, pale - ENT normal nares, normal mucosa - Respiratory normal expansion, normal respiratory effort - Abdomen stoma pink viable Abdomen: soft, non tender Results - Labs 05/24/22 06:32 05/23/22 04:30 Abnormal Lab Results - Last 24 Hours (Table) 05/24/22 Range/Units 06:32 WBC 22.8 H (3.8-10.6) k/uL RBC 2.48 L (3.80-5.40) m/uL Hgb 8.5 L (11.4-16.0) gm/dL Hct 26.0 L (34.0-46.0) % MCV 104.8 H (80.0-100.0) fL RDW 15.7 H (11.5-15.5) % Neutrophils # 20.4 H (1.3-7.7) k/uL Microbiology - Last 24 Hours (Table) 05/19/22 16:05 Blood Culture - Final Blood 05/19/22 16:20 Blood Culture - Preliminary Blood No Growth after 96 hours Assessment and Plan Assessment: This is 61 yo with hx of T4 bladder cancer S/P radical cystectomy with ileal conduit in 04/2020, developed local recurrence, with evidence progression on imaging. U/S on admission showed mild bilateral hydronephrosis, CT from 05/12/22 showed no evidence of hydronephrosis or ureteral obstruction. Kidney function at baseline. Given normal kidney function, normal recent CT and lack of symptoms no intervention from urology standpoint, on U/S hydronephrosis is fairly minimal, and more likely chronic dilation vs reflux rather than true obstruction.
[2022-05-24 11:20] LABS: African American GFR (CKD) 90.9 (60.0-200.0); Albumin 2.5 g/dL (3.8-4.9); Albumin/Globulin Ratio 0.96 (1.60-3.17); Anion Gap 10.8 mmol/L (10.00-18.00); BUN/Creat Ratio 9.63 Ratio (12.00-20.00); Blood Urea Nitrogen 7.7 mg/dL (9.0-27.0); Carbon Dioxide 24.2 mmol/L (20.0-27.5); Globulin 2.6 g/dL (1.6-3.3); Magnesium 1.7 mg/dL (1.5-2.4); Non-African American GFR(CKD) 78.5 (60.0-200.0); Potassium 3.6 mmol/L (3.5-5.5); Total Bilirubin 0.2 mg/dL (0.30-1.20); Total Protein 5.1 g/dL (6.2-8.2)
[2022-05-24] MEDS ORDERED: VANCOMYCIN IV PER PHARMACY 1 EACH MISC MISCELLANE PRN (13:45)
[2022-05-24] MEDS ORDERED: VANCOMYCIN 1,250 MG in SODIUM CHLORIDE 0.9% 250 ML IVPB ONE (14:30)
--- NOTE | 2022-05-24 17:19 | P.PN ---
Subjective Progress Note Date: 05/24/22 61-year-old female with a past medical history significant for bladder cancer did have ileostomy COPD CVA TIA the patient has been brought into the hospital by the complaining of the patient becoming significantly weak in the last day or 2 and cannot even assist in transport and the patient did have episode of more vomiting and concerning for possible UTI with the same the patient was brought into the ER on arrival to the ER the patient did have a low- grade fever of 99 F the patient was not hypoxic or need for supplemental oxygen he did have white count of 25,000 which repeat was up to 29,000 creatinine was normal and BUN was mildly elevated liver enzymes are normal patient did have a positive UA blood cultures obtained which are currently pending urine is now showing Enterococcus patient is currently being treated with Rocephin Blood work completed in ED reveals a WBC of 24.6, hemoglobin of 7.8 and platelet count of 195, sodium 137, potassium 3.7, BUN/creatinine of 60/0.72 and blood glucose of 80 05/22/2022 the patient is afebrile patient is breathing comfortably on room air and did mention feeling slightly better no chest pain shortness of breath or cough no abdominal pain and no diarrhea patient was in the hospital with generalized weakness which is likely multif actorial patient did have a lead white count and significant positive UA concerning for symptomatic urinary tract infection likely from enteric pathogen with urine culture now showing Enterococcus. patient to continue with Unasyn while waiting for sensitivity on this Enterococcus with the discharge antibiotic on the basis of final culture and clinical response. patient still have significantly elevated white count will check an ultrasound of the kidney to make sure no evidence of any abscess or obstructive uropathy also advised to change her Ng catheter 05/23/2022 Patient is evaluated today up in the chair. Assisted back to bed, patient is weak. Repeat urinalysis shows improvement. Continues on IV unasyn with ID following closely. Renal ultrasound showing mild bilateral hydronephrosis. No obstructing etiology present on ultrasound. Urology consulted for further review. White count is 23.54 today. Hemoglobin 7.3. Kidney function stable. Blood pressure on the lower side at 82/55. 05/24/2022 Patient evaluated at bedside today sitting up in chair. She does report feeling better than yesterday and no acute complaints. She is receiving IV fluids normal saline at 100 and has been started on midodrine. Blood pressure has improved. Infectious disease following and patient remains on IV unasyn and started on IV vancomycin. Patient did have a positive blood culture showing coagulase negative staph with blood culture taken 15 minutes after reporting as negative. White count is improving down to 22.8 today. Urology consultation recommending no intervention. Patient wants to discharge home. Review of Systems Constitutional: Denied any fatigue denied any fever. Cardio vascular: denied any chest pain, palpitations Gastrointestinal: denied any nausea, vomiting, diarrhea Pulmonary: Denied any shortness of breath cough Neurologic denied any new focal deficits All inpatient medications were reviewed and appropriate changes in these medications as dictated in the interval history and assessment and plan. PHYSICAL EXAMINATION: GENERAL: The patient is alert and oriented x2, not in any acute distress. Well developed, well nourished. HEENT: Pupils are round and equally reacting to light. EOMI. No scleral icterus. No conjunctival pallor. Normocephalic, atraumatic. No pharyngeal erythema. No thyromegaly. CARDIOVASCULAR: S1 and S2 present. No murmurs, rubs, or gallops. PULMONARY: Chest is clear to auscultation, no wheezing or crackles. ABDOMEN: Soft, nontender, nondistended, normoactive bowel sounds. No palpable organomegaly. Urostomy present RUQ. Debris in drainage bag. MUSCULOSKELETAL: No joint swelling or deformity. EXTREMITIES: No cyanosis, clubbing, or pedal edema. NEUROLOGICAL: Gross neurological examination did not reveal any focal deficits. Apashic. Weak. SKIN: No rashes. Assessment and Plan Assessment Urinary tract infection with sepsis present on admission urine culture showing enterococcus Leukocytosis secondary to above Mild bilateral hydronephrosis Hypotension likely poor oral intake History of invasive bladder cancer with radical cystectomy and urostomy COPD not in acute exacerbation GERD History of CVA/TIA with residual aphasia on aspirin 81 mg daily, patient was on a statin in the past follow up with family why patient is currently not on. Medical debility and weakness GI prophylaxis Plan Continue IV antibiotics ID following Follow blood culture Repeat labs in AM Continue IV fluids Home with HC vs. VIDHI on discharge The impression and plan of care has been dictated by Sanam Chacko Nurse Practitioner as directed. Dr. Bella MD I have performed a history and physical examination and medical decision making of this patient, discussed the same with the dictator, and agree with the dictators assessment and plan as written, documented as a scribe. Based on total visit time, I have performed more than 50% of this visit. Objective - Vital Signs Vital signs: Vital Signs Temp 98.1 F 05/24/22 13:38 Pulse 45 L 05/24/22 13:38 Resp 14 05/24/22 13:38 BP 97/48 05/24/22 13:38 Pulse Ox 99 05/24/22 13:38 FiO2 21 05/24/22 11:55 Intake & Output 05/23/22 05/24/22 05/24/22 18:59 06:59 18:59 Intake Total 850 Output Total 400 1350 Balance 450 -1350 Weight 63.5 kg Intake: Intake, IV Titration 850 Amount Ampicillin-Sulbactam 3 gm 200 In Sodium Chloride 0.9% 100 ml @ 200 mls/hr IVPB Q6HR [facility] Rx#:[id number] Sodium Chloride 0.9% 1, 150 000 ml @ 75 mls/hr IV . [id number] [facility] Rx#:[id number] Sodium Chloride 0.9% 500 500 ml 500 ml @ 999 mls/hr IV .Q31M [facility] Rx#:[id number] Output: Urine 400 1350 Other: Voiding Method Ileal Conduit (Left) Ileal Conduit (Left) Ileal Conduit (Left) # Bowel Movements 0 - Labs CBC & Chem 7: 05/24/22 06:32 05/24/22 06:32 Labs: Abnormal Lab Results - Last 24 Hours (Table) 05/24/22 05/24/22 Range/Units 06:32 06:32 WBC 22.8 H (3.8-10.6) k/uL RBC 2.48 L (3.80-5.40) m/uL Hgb 8.5 L (11.4-16.0) gm/dL Hct 26.0 L (34.0-46.0) % MCV 104.8 H (80.0-100.0) fL RDW 15.7 H (11.5-15.5) % Neutrophils # 20.4 H (1.3-7.7) k/uL BUN 7.7 L (9.0-27.0) mg/dL BUN/Creatinine Ratio 9.63 L (12.00-20.00) Ratio Total Bilirubin 0.20 L (0.30-1.20) mg/dL Alkaline Phosphatase 150 H (41-126) U/L Total Protein 5.1 L (6.2-8.2) g/dL Albumin 2.5 L (3.8-4.9) g/dL Albumin/Globulin Ratio 0.96 L (1.60-3.17) g/dL Microbiology - Last 24 Hours (Table) 05/19/22 16:05 Blood Culture - Final Blood 05/19/22 16:20 Blood Culture - Preliminary Blood No Growth after 96 hours Assessment and Plan Time with Patient: Less than 30
--- NOTE | 2022-05-24 17:21 | P.PN ---
Subjective Progress Note Date: 05/23/22 Principal diagnosis: Leukocytosis and enterococcus urinary tract infection Patient is a 61-year-old female with a past medical history significant for bladder cancer did have ileostomy COPD CVA TIA the patient has been brought into the hospital by the complaining of the patient becoming significantly weakness, patient noticed to have evidence of UTI with urine showing enterococcus. on today's evaluation that is 05/23/2022, the patient remains to be afebrile, the patient patient is breathing comfortably on room air, the patient denies chest pain shortness of breath or cough no abdominal pain and no diarrhea Objective - Vital Signs Vital signs: Vital Signs Temp 97.6 F 05/23/22 07:00 Pulse 56 L 05/23/22 07:00 Resp 16 05/23/22 07:00 BP 90/56 05/23/22 07:00 Pulse Ox 92 L 05/23/22 09:04 FiO2 21 05/22/22 08:01 Intake & Output 05/22/22 05/23/22 05/23/22 18:59 06:59 18:59 Intake Total 100 Output Total 600 600 Balance -500 -600 Weight 62.5 kg Intake: Intake, IV Titration 100 Amount Ampicillin-Sulbactam 3 gm 100 In Sodium Chloride 0.9% 100 ml @ 200 mls/hr IVPB Q6HR [facility] Rx#:[id number] Output: Urine 600 600 Other: Voiding Method Ileal Conduit (Left) Ileal Conduit (Left) Ileal Conduit (Left) # Bowel Movements 1 1 - Exam GENERAL DESCRIPTION: Middle-age female lying in bed in no distress RESPIRATORY SYSTEM: Unlabored breathing , decreased breath sounds at bases HEART: S1 S2 regular rate and rhythm , ABDOMEN: Soft , no tenderness EXTREMITIES: No edema feet - Labs CBC & Chem 7: 05/24/22 06:32 05/24/22 06:32 Labs: Abnormal Lab Results - Last 24 Hours (Table) 05/22/22 05/23/22 05/23/22 Range/Units 17:30 04:30 04:30 WBC 23.54 H (4.50-10.00) X 10*3/uL RBC 2.21 L (4.10-5.20) X 10*6/uL Hgb 7.3 L (12.0-15.0) g/dL Hct 23.7 L (37.2-46.3) % MCV 107.2 H (80.0-97.0) fL MCH 33.0 H (27.0-32.0) pg MCHC 30.8 L (32.0-37.0) g/dL RDW 16.0 H (11.5-14.5) % Immature Gran # 0.17 H (0.00-0.04) X 10*3/uL Neutrophils # 19.91 H (1.80-7.70) X 10*3/uL Potassium 3.3 L (3.5-5.5) mmol/L Anion Gap 9.50 L (10.00-18.00) mmol/L Total Bilirubin 0.20 L (0.30-1.20) mg/dL Alkaline Phosphatase 155 H (41-126) U/L C-Reactive Protein 11.20 H (0.00-0.80) mg/dL Total Protein 5.2 L (6.2-8.2) g/dL Albumin 2.6 L (3.8-4.9) g/dL Albumin/Globulin Ratio 1.00 L (1.60-3.17) g/dL Urine Protein Trace H (Negative) Microbiology - Last 24 Hours (Table) 05/19/22 14:14 Urine Culture - Final Urine,Voided Enterococcus faecalis 05/19/22 16:20 Blood Culture - Preliminary Blood No Growth after 72 hours 05/19/22 16:05 Blood Culture - Preliminary Blood No Growth after 72 hours Assessment and Plan (1) UTI (urinary tract infection) Current Visit: Yes Status: Acute Priority: High Code(s): N39.0 - URINARY TRACT INFECTION, SITE NOT SPECIFIED SNOMED Code(s): 34024028 Plan: 1patient was in the hospital with generalized weakness which is likely multifactorial patient did have a lead white count and significant positive UA concerning for symptomatic urinary tract infection likely from enteric pathogen with urine culture now showing Enterococcus. 2patient to continue with Unasyn while waiting for sensitivity on this Enterococcus with the discharge antibiotic on the basis of final culture and clinical response. 3patient still have significantly elevated white count, ultrasound shows mild bilateral hydronephrosis. Urology has been consulted await their evaluation Time with Patient: Less than 30
--- NOTE | 2022-05-24 17:25 | P.PN ---
Subjective Progress Note Date: 05/24/22 Principal diagnosis: Leukocytosis and enterococcus urinary tract infection Patient is a 61-year-old female with a past medical history significant for bladder cancer did have ileostomy COPD CVA TIA the patient has been brought into the hospital by the complaining of the patient becoming significantly weakness, patient noticed to have evidence of UTI with urine showing enterococcus. on today's evaluation that is 05/24/2022, the patient continues to be afebrile, the patient patient is breathing comfortably on room air, the patient denies chest pain shortness of breath or cough no abdominal pain and no diarrhea, patient mentioned not feeling good today Objective - Vital Signs Vital signs: Vital Signs Temp 98.1 F 05/24/22 13:38 Pulse 45 L 05/24/22 13:38 Resp 14 05/24/22 13:38 BP 97/48 05/24/22 13:38 Pulse Ox 99 05/24/22 13:38 FiO2 21 05/24/22 11:55 Intake & Output 05/23/22 05/24/22 05/24/22 18:59 06:59 18:59 Intake Total 850 Output Total 400 1350 Balance 450 -1350 Weight 63.5 kg Intake: Intake, IV Titration 850 Amount Ampicillin-Sulbactam 3 gm 200 In Sodium Chloride 0.9% 100 ml @ 200 mls/hr IVPB Q6HR [facility] Rx#:[id number] Sodium Chloride 0.9% 1, 150 000 ml @ 75 mls/hr IV . [id number] [facility] Rx#:[id number] Sodium Chloride 0.9% 500 500 ml 500 ml @ 999 mls/hr IV .Q31M [facility] Rx#:[id number] Output: Urine 400 1350 Other: Voiding Method Ileal Conduit (Left) Ileal Conduit (Left) Ileal Conduit (Left) # Bowel Movements 0 - Exam GENERAL DESCRIPTION: Middle-age female lying in bed in no distress RESPIRATORY SYSTEM: Unlabored breathing , decreased breath sounds at bases HEART: S1 S2 regular rate and rhythm , ABDOMEN: Soft , no tenderness EXTREMITIES: No edema feet - Labs CBC & Chem 7: 05/24/22 06:32 05/24/22 06:32 Labs: Abnormal Lab Results - Last 24 Hours (Table) 05/24/22 05/24/22 Range/Units 06:32 06:32 WBC 22.8 H (3.8-10.6) k/uL RBC 2.48 L (3.80-5.40) m/uL Hgb 8.5 L (11.4-16.0) gm/dL Hct 26.0 L (34.0-46.0) % MCV 104.8 H (80.0-100.0) fL RDW 15.7 H (11.5-15.5) % Neutrophils # 20.4 H (1.3-7.7) k/uL BUN 7.7 L (9.0-27.0) mg/dL BUN/Creatinine Ratio 9.63 L (12.00-20.00) Ratio Total Bilirubin 0.20 L (0.30-1.20) mg/dL Alkaline Phosphatase 150 H (41-126) U/L Total Protein 5.1 L (6.2-8.2) g/dL Albumin 2.5 L (3.8-4.9) g/dL Albumin/Globulin Ratio 0.96 L (1.60-3.17) g/dL Microbiology - Last 24 Hours (Table) 05/19/22 16:05 Blood Culture - Final Blood 05/19/22 16:20 Blood Culture - Preliminary Blood No Growth after 96 hours Assessment and Plan (1) UTI (urinary tract infection) Current Visit: Yes Status: Acute Priority: High Code(s): N39.0 - URINARY TRACT INFECTION, SITE NOT SPECIFIED SNOMED Code(s): 43213558 Plan: 1patient was in the hospital with generalized weakness which is likely multifactorial patient did have a lead white count and significant positive UA concerning for symptomatic urinary tract infection likely from enteric pathogen with urine culture now showing Enterococcus. 2patient US mild bilateral hydronephrosis. Urology has been consulted recommending no intervention 3-patient urine culture did grew enterococcus which is penicillin sensitive blood culture is growing gram-positive cocci in cluster awaiting ID vancomycin has been added Time with Patient: Less than 30
[2022-05-24] MEDS: IOPAMIDOL CONTRAST (ORAL USE) VIAL PO PRN ×2 (20:26→21:25)
--- NOTE | 2022-05-24 22:42 | CT ---
EXAMINATION TYPE: CT abdomen pelvis w con CT DLP: 584.40 mGycm, Automated exposure control for dose reduction was used. DATE OF EXAM: 05/24/2022 10:17 PM COMPARISON: CT abdomen pelvis most recent from 05/10/2022, 03/01/2022, 08/18/2021 CT chest abdomen pelvi s. PET/CT 06/11/2021. CLINICAL INDICATION:Female, 61 years old with history of leukocytosis, f/u soft tissue mass; leukocyt osis, follow up soft tissue mass TECHNIQUE: Axial CT of the abdomen and pelvis. Sagittal and coronal reformats were created on a [employer] workstation. Contrast used:100cc mL of Isovue 300 with IV Contrast, Oral contrast used: with Oral Contrast FINDINGS: New trace bilateral pleural effusions left greater than right ABDOMEN: ABDOMEN LIVER: Unremarkable GALLBLADDER AND BILE DUCTS: Unremarkable. PANCREAS: Unremarkable. SPLEEN: Unremarkable. ADRENAL GLANDS: Unremarkable. KIDNEYS AND URETERS: No evidence of hydronephrosis or renal calculus. Left renal cyst. Mild dilation of the collecting systems PELVIS BLADDER: Mass within the pelvis surgical bed is again demonstrated measuring larger at 10.2 x 9.6 cm, previously 9.2 x 8.3 cm there is gas within this mass with appearance of feces which is more pronou nced on this exam. Finding is compatible with rectal wall breakdown with extending into the mass. Div erting loop conduit is present. REPRODUCTIVE: Uterus is not definitively visualized. ABDOMEN & PELVIS STOMACH AND BOWEL: No evidence of bowel obstruction. Moderate to large stool burden throughout the co christianne which appears to be partly partially obstructed by the pelvic mass which closely approximates and invades through the rectal wall. PERITONEUM: No evidence of pneumoperitoneum or free fluid. Surgical clips are seen in the pelvis. VASCULATURE: No evidence of aortic aneurysm. 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 MUSCULOSKELETAL: No acute osseous abnormalities Mild disc degeneration changes throughout the spine w ith facet joint arthropathy. Grade 1/2 anterolisthesis of L4 on L5 is present. Retrolisthesis of L2 o n L3. LYMPH NODES: No gross evidence for lymphadenopathy. SOFT TISSUE/ABDOMINAL WALL: Diverting loop conduit is present. IMPRESSION: 1. Interval increase in bladder/pelvis surgical bed soft tissue mass which invades into the rectal w all and now hazy appearance of feces within. Finding likely surgically patient's leukocytosis. 2. No evidence additional of intra-abdominal lymphadenopathy in today's exam. 3. Left chest wall [id number]-Cguf distal tip appears to terminate in the soft tissues just anterior t o the left subclavian vein. Further evaluation of the Ogbvwo-w-Dnme is recommended before used. 4. Stable distal aorta fusiform dilation up to 3.9 cm. 5. New trace bilateral pleural effusions.
[2022-05-25] MEDS ORDERED: VANCOMYCIN 1,000 MG in SODIUM CHLORIDE 0.9% 250 ML IVPB SCH (02:00)
[2022-05-25] MEDS: AMPICILLIN-SULBACTAM 3 GM in SODIUM CHLORIDE 0.9% 100 ML IVPB SCH ×2 (05:04→15:21)
[2022-05-25 07:49] LABS: ALT 15 U/L (4-34); AST 17 U/L (14-36); African American GFR (CKD) >90 (>60 ml/min/1.73 sqM); Albumin 2.2 g/dL (3.5-5.0); Albumin/Globulin Ratio 0.8; Alkaline Phosphatase 136 U/L (38-126); Anion Gap 8 mmol/L; Blood Urea Nitrogen 6 mg/dL (7-17); Calcium 8.5 mg/dL (8.4-10.2); Carbon Dioxide 24 mmol/L (22-30); Chloride 108 mmol/L (98-107); Globulin 2.8 g/dL; Glucose 94 mg/dL (74-99); Non-African American GFR(CKD) 87 (>60 ml/min/1.73 sqM); Potassium 3.3 mmol/L (3.5-5.1); Sodium 140 mmol/L (137-145); Total Bilirubin 0.2 mg/dL (0.2-1.3)
[2022-05-25 07:50] LABS: Basophils % (A) 0 %; Eosinophils # (A) 0.1 k/uL (0-0.7); Eosinophils % (A) 1 %; HCT 25.2 % (34.0-46.0); HGB 8.2 gm/dL (11.4-16.0); Lymphocytes # (A) 1.6 k/uL (1.0-4.8); Lymphocytes % (A) 8 %; MCH 33.9 pg (25.0-35.0); MCHC 32.7 g/dL (31.0-37.0); MCV 103.8 fL (80.0-100.0); Macrocytosis Moderate; Mean Platelet Volume 8.1; Monocytes # (A) 0.6 k/uL (0-1.0); Monocytes % (A) 3 %; Neutrophils # (A) 17.9 k/uL (1.3-7.7); Neutrophils % (A) 88 %; Platelet Count 206 k/uL (150-450); RBC 2.43 m/uL (3.80-5.40); RDW 15.9 % (11.5-15.5); WBC 20.4 k/uL (3.8-10.6)
[2022-05-25] MEDS: PANTOPRAZOLE 40 MG TABLET PO SCH (09:19)
[2022-05-25] MEDS: MIDODRINE 5 MG TAB PO SCH ×3 (09:19→17:49)
[2022-05-25] MEDS: ASPIRIN 81 MG PO SCH (09:19)
[2022-05-25] MEDS: MULTIVITAMINS, THERA 1 EACH TAB PO SCH (09:20)
[2022-05-25] MEDS: DIVALPROEX SPRINKLE 125 MG CAP.SPRINK PO SCH ×2 (09:20→20:22)
--- NOTE | 2022-05-25 13:28 | P.PN ---
Subjective Progress Note Date: 05/25/22 61-year-old female with a past medical history significant for bladder cancer did have ileostomy COPD CVA TIA the patient has been brought into the hospital by the complaining of the patient becoming significantly weak in the last day or 2 and cannot even assist in transport and the patient did have episode of more vomiting and concerning for possible UTI with the same the patient was brought into the ER on arrival to the ER the patient did have a low- grade fever of 99 F the patient was not hypoxic or need for supplemental oxygen he did have white count of 25,000 which repeat was up to 29,000 creatinine was normal and BUN was mildly elevated liver enzymes are normal patient did have a positive UA blood cultures obtained which are currently pending urine is now showing Enterococcus patient is currently being treated with Rocephin Blood work completed in ED reveals a WBC of 24.6, hemoglobin of 7.8 and platelet count of 195, sodium 137, potassium 3.7, BUN/creatinine of 60/0.72 and blood glucose of 80 05/22/2022 the patient is afebrile patient is breathing comfortably on room air and did mention feeling slightly better no chest pain shortness of breath or cough no abdominal pain and no diarrhea patient was in the hospital with generalized weakness which is likely multif actorial patient did have a lead white count and significant positive UA concerning for symptomatic urinary tract infection likely from enteric pathogen with urine culture now showing Enterococcus. patient to continue with Unasyn while waiting for sensitivity on this Enterococcus with the discharge antibiotic on the basis of final culture and clinical response. patient still have significantly elevated white count will check an ultrasound of the kidney to make sure no evidence of any abscess or obstructive uropathy also advised to change her Ng catheter 05/23/2022 Patient is evaluated today up in the chair. Assisted back to bed, patient is weak. Repeat urinalysis shows improvement. Continues on IV unasyn with ID following closely. Renal ultrasound showing mild bilateral hydronephrosis. No obstructing etiology present on ultrasound. Urology consulted for further review. White count is 23.54 today. Hemoglobin 7.3. Kidney function stable. Blood pressure on the lower side at 82/55. 05/24/2022 Patient evaluated at bedside today sitting up in chair. She does report feeling better than yesterday and no acute complaints. She is receiving IV fluids normal saline at 100 and has been started on midodrine. Blood pressure has improved. Infectious disease following and patient remains on IV unasyn and started on IV vancomycin. Patient did have a positive blood culture showing coagulase negative staph with blood culture taken 15 minutes after reporting as negative. White count is improving down to 22.8 today. Urology consultation recommending no intervention. Patient wants to discharge home. 05/25/2022 Patient evaluated at bedside with present. Patient had CT done outpatient on 05/10 which showing reoccurrence of the surgical bed soft tissue mass with partial obstruction of the large bowel near the rectum. Patients does report that they have not followed up with oncology about this, they missed their monday office appt since she was hospitalized. Repeat abdominal CV was done this admission showing an interval increase in size of the bladder/pelvis surgical bed soft tissue mass which invades the rectal wall and now hazy appearance of feces within. There is no evidence of additional intra- abdominal lymphadenopathy. There is a left chest wall dyygch-w-fjfm distal tip appears to terminate in the soft tissues just anterior to the subclavian vein. Further evaluation of the lvakh-m-ayka recommended before using. There is stable distal aorta fusiform with dilation of 3.9 cm. New trace bilateral pleural effusions. White count down to 20.4 today, hemoglobin 8.2. potassium 3.3. Procalcionin 0.13. Blood pressure up to 114/71 today. Review of Systems Constitutional: Denied any fatigue denied any fever. Cardio vascular: denied any chest pain, palpitations Gastrointestinal: denied any nausea, vomiting, diarrhea Pulmonary: Denied any shortness of breath cough Neurologic denied any new focal deficits All inpatient medications were reviewed and appropriate changes in these medications as dictated in the interval history and assessment and plan. PHYSICAL EXAMINATION: GENERAL: The patient is alert and oriented x2, not in any acute distress. Well developed, well nourished. HEENT: Pupils are round and equally reacting to light. EOMI. No scleral icterus. No conjunctival pallor. Normocephalic, atraumatic. No pharyngeal erythema. No thyromegaly. CARDIOVASCULAR: S1 and S2 present. No murmurs, rubs, or gallops. PULMONARY: Chest is clear to auscultation, no wheezing or crackles. ABDOMEN: Soft, nontender, nondistended, normoactive bowel sounds. No palpable organomegaly. Urostomy present RUQ. Debris in drainage bag. MUSCULOSKELETAL: No joint swelling or deformity. EXTREMITIES: No cyanosis, clubbing, or pedal edema. NEUROLOGICAL: Gross neurological examination did not reveal any focal deficits. Apashic. Weak. SKIN: No rashes. Assessment and Plan Assessment Pelvic/bladder surgical bed soft tissue mass that invades the rectal wall increased in size from prior CT on 05/10/22. Urinary tract infection with sepsis present on admission urine culture showing enterococcus Luekocytosis Mild bilateral hydronephrosis Hypotension improving with midodrine History of invasive bladder cancer with radical cystectomy and urostomy COPD not in acute exacerbation GERD History of CVA/TIA with residual aphasia Medical debility and weakness GI prophylaxis Plan General surgery and oncology have been consulted for further evaluation and recommendations regarding the soft tissue mass. Continue IV antibiotics ID following Follow blood culture Continue IV fluids Discussed findings with patient and at bedside. The impression and plan of care has been dictated by Sanam Chacko, Nurse Practitioner as directed. Dr. Bella MD I have performed a history and physical examination and medical decision making of this patient, discussed the same with the dictator, and agree with the dictators assessment and plan as written, documented as a scribe. Based on total visit time, I have performed more than 50% of this visit. Objective - Vital Signs Vital signs: Vital Signs Temp 98.7 F 05/25/22 08:00 Pulse 66 05/25/22 12:29 Resp 18 05/25/22 08:00 BP 114/71 05/25/22 12:29 Pulse Ox 99 05/25/22 12:29 FiO2 21 05/24/22 11:55 Intake & Output 05/24/22 05/25/22 05/25/22 18:59 06:59 18:59 Intake Total 2240 Output Total 1000 2000 Balance -1000 240 Weight 65 kg Intake: Intake, IV Titration 1650 Amount Ampicillin-Sulbactam 3 gm 200 In Sodium Chloride 0.9% 100 ml @ 200 mls/hr IVPB Q6HR [facility] Rx#:[id number] Sodium Chloride 0.9% 1, 1200 000 ml @ 100 mls/hr IV . Q10H [facility] Rx#:[id number] Vancomycin 1,000 mg In 250 Sodium Chloride 0.9% 250 ml @ 125 mls/hr IVPB Q12H [facility] Rx#:[id number] Oral 590 Output: Urine 1000 2000 Other: Voiding Method Ileal Conduit (Left) Ileal Conduit (Left) Ileal Conduit (Left) # Bowel Movements 1 1 1 - Labs CBC & Chem 7: 05/25/22 06:49 05/25/22 06:49 Labs: Abnormal Lab Results - Last 24 Hours (Table) 05/24/22 05/24/22 05/25/22 Range/Units 14:07 14:07 06:49 WBC 20.4 H (3.8-10.6) k/uL RBC 2.43 L (3.80-5.40) m/uL Hgb 8.2 L (11.4-16.0) gm/dL Hct 25.2 L (34.0-46.0) % MCV 103.8 H (80.0-100.0) fL RDW 15.9 H (11.5-15.5) % Neutrophils # 17.9 H (1.3-7.7) k/uL Potassium (3.5-5.1) mmol/L Chloride (98-107) mmol/L BUN (7-17) mg/dL Alkaline Phosphatase (38-126) U/L C-Reactive Protein 13.8 H (<1.0) mg/dL Total Protein (6.3-8.2) g/dL Albumin (3.5-5.0) g/dL Procalcitonin 0.13 H (0.02-0.09) ng/mL 05/25/22 Range/Units 06:49 WBC (3.8-10.6) k/uL RBC (3.80-5.40) m/uL Hgb (11.4-16.0) gm/dL Hct (34.0-46.0) % MCV (80.0-100.0) fL RDW (11.5-15.5) % Neutrophils # (1.3-7.7) k/uL Potassium 3.3 L (3.5-5.1) mmol/L Chloride 108 H (98-107) mmol/L BUN 6 L (7-17) mg/dL Alkaline Phosphatase 136 H (38-126) U/L C-Reactive Protein (<1.0) mg/dL Total Protein 5.0 L (6.3-8.2) g/dL Albumin 2.2 L (3.5-5.0) g/dL Procalcitonin (0.02-0.09) ng/mL Microbiology - Last 24 Hours (Table) 05/19/22 16:05 Blood Culture Gram Stain - Preliminary Blood Blood Culture - Preliminary Coagulase Negative Staph 05/19/22 16:20 Blood Culture - Preliminary Blood No Growth after 120 hours Assessment and Plan Time with Patient: Greater than 30
--- NOTE | 2022-05-25 14:10 | P.PN ---
Subjective Progress Note Date: 05/25/22 Principal diagnosis: Leukocytosis and enterococcus urinary tract infection Patient is a 61-year-old female with a past medical history significant for bladder cancer did have ileostomy COPD CVA TIA the patient has been brought into the hospital by the complaining of the patient becoming significantly weakness, patient noticed to have evidence of UTI with urine showing enterococcus. on today's evaluation that is 05/25/2022, the patient remains to be afebrile, the patient patient is breathing comfortably on room air, the patient denies chest pain shortness of breath or cough, the patient denies having any abdominal pain and no diarrhea, with no blood or mucus in the stool patient did have a Ng catheter with clear urine Objective - Vital Signs Vital signs: Vital Signs Temp 98.7 F 05/25/22 08:00 Pulse 69 05/25/22 08:58 Resp 18 05/25/22 08:00 BP 97/58 05/25/22 08:58 Pulse Ox 94 L 05/25/22 08:00 FiO2 21 05/24/22 11:55 Intake & Output 05/24/22 05/25/22 05/25/22 18:59 06:59 18:59 Intake Total 2240 Output Total 1000 2000 Balance -1000 240 Weight 65 kg Intake: Intake, IV Titration 1650 Amount Ampicillin-Sulbactam 3 gm 200 In Sodium Chloride 0.9% 100 ml @ 200 mls/hr IVPB Q6HR [facility] Rx#:[id number] Sodium Chloride 0.9% 1, 1200 000 ml @ 100 mls/hr IV . Q10H [facility] Rx#:[id number] Vancomycin 1,000 mg In 250 Sodium Chloride 0.9% 250 ml @ 125 mls/hr IVPB Q12H [facility] Rx#:[id number] Oral 590 Output: Urine 1000 2000 Other: Voiding Method Ileal Conduit (Left) Ileal Conduit (Left) Ileal Conduit (Left) # Bowel Movements 1 1 1 - Exam GENERAL DESCRIPTION: Middle-age female lying in bed in no distress RESPIRATORY SYSTEM: Unlabored breathing , decreased breath sounds at bases HEART: S1 S2 regular rate and rhythm , ABDOMEN: Soft , no tenderness EXTREMITIES: No edema feet - Labs CBC & Chem 7: 05/25/22 06:49 05/25/22 06:49 Labs: Abnormal Lab Results - Last 24 Hours (Table) 05/24/22 05/24/22 05/25/22 Range/Units 14:07 14:07 06:49 WBC 20.4 H (3.8-10.6) k/uL RBC 2.43 L (3.80-5.40) m/uL Hgb 8.2 L (11.4-16.0) gm/dL Hct 25.2 L (34.0-46.0) % MCV 103.8 H (80.0-100.0) fL RDW 15.9 H (11.5-15.5) % Neutrophils # 17.9 H (1.3-7.7) k/uL Potassium (3.5-5.1) mmol/L Chloride (98-107) mmol/L BUN (7-17) mg/dL Alkaline Phosphatase (38-126) U/L C-Reactive Protein 13.8 H (<1.0) mg/dL Total Protein (6.3-8.2) g/dL Albumin (3.5-5.0) g/dL Procalcitonin 0.13 H (0.02-0.09) ng/mL 05/25/22 Range/Units 06:49 WBC (3.8-10.6) k/uL RBC (3.80-5.40) m/uL Hgb (11.4-16.0) gm/dL Hct (34.0-46.0) % MCV (80.0-100.0) fL RDW (11.5-15.5) % Neutrophils # (1.3-7.7) k/uL Potassium 3.3 L (3.5-5.1) mmol/L Chloride 108 H (98-107) mmol/L BUN 6 L (7-17) mg/dL Alkaline Phosphatase 136 H (38-126) U/L C-Reactive Protein (<1.0) mg/dL Total Protein 5.0 L (6.3-8.2) g/dL Albumin 2.2 L (3.5-5.0) g/dL Procalcitonin (0.02-0.09) ng/mL Microbiology - Last 24 Hours (Table) 05/19/22 16:05 Blood Culture Gram Stain - Preliminary Blood Blood Culture - Preliminary Coagulase Negative Staph 05/19/22 16:20 Blood Culture - Preliminary Blood No Growth after 120 hours Assessment and Plan (1) UTI (urinary tract infection) Current Visit: Yes Status: Acute Priority: High Code(s): N39.0 - URINARY TRACT INFECTION, SITE NOT SPECIFIED SNOMED Code(s): 91841229 Plan: 1patient was in the hospital with generalized weakness which is likely multifactorial patient did have a lead white count and significant positive UA concerning for symptomatic urinary tract infection likely from enteric pathogen with urine culture now showing Enterococcus. 2patient US mild bilateral hydronephrosis. Urology has been consulted recommending no intervention 3-patient urine culture did grew enterococcus which is penicillin sensitive blood culture is growing gram-positive cocci in cluster which has been finalized as staph epi possible contaminated repeat blood culture so far negative 4-patient did have a bladder cancer history with a repeat CT obtained on 05/24/2022 concerning for possible extension into the rectal wall Gen. surgery has been consulted antibiotic will be adjusted to Zosyn prognosis remains to be guarded, discussed with the admitting team Time with Patient: Less than 30
--- NOTE | 2022-05-25 14:27 | P.GSCN ---
History of Present Illness Consult date: 05/25/22 History of present illness: CHIEF COMPLAINT: Weakness HISTORY OF PRESENT ILLNESS: This is a 61-year-old female with a known history of bladder cancer that was diagnosed 2 years ago. She subsequently had cystectomy and urostomy and apparently small portion of bowel was resected at that time to due to the tumor invading the colon wall. Surgery was completed at [facility]. Patient has been undergoing chemotherapy. Apparently that's currently on hold. Patient does have a known history of a CVA with expressive aphasia. She presents to the hospital with increased weakness. She was found have evidence of a UTI. She had computed tomography scan abdomen and pelvis that had shown interval increase in bladder/pelvis surgical bed soft tissue mass which invades into the rectal wall and now hazy appearance of feces within. Patient has never had a colonoscopy. She denies any blood in her stools. She has diarrhea but reports that that is chronic for her. She denies any abdominal pain. Denies any rectal pain. Denies any fever chills or sweats. Most of history obtained from patient's son at the bedside. PAST MEDICAL HISTORY: See below PAST SURGICAL HISTORY: See below MEDICATIONS: See below ALLERGIES: See below SOCIAL HISTORY: No illicit drug use. REVIEW OF SYSTEMS: CONSTITUTIONAL: Denies fever or chills. HEENT: Denies blurred vision, vision changes, or eye pain. Denies hemoptysis CARDIOVASCULAR: Denies chest pain or pressure. RESPIRATORY: No shortness of breath. GASTROINTESTINAL: See HPI for pertinent findings HEMATOLOGIC: Denies bleeding disorders. GENITOURINARY: Denies any blood in urine or increased urinary frequency. SKIN: Denies pruitis. Denies rash. PHYSICAL EXAM: VITAL SIGNS: Reviewed GENERAL: Well-developed in no acute distress. HEENT: No sclera icterus. Extraocular movements grossly intact. Moist buccal mucosa. Head is atraumatic, normocephalic. No nasal drainage. ABDOMEN: Soft. Nondistended. Nontender. Urostomy urine clear yellow NEUROLOGIC: Awake and alert. Excessive aphasia LABORATORY DATA: WBC is 20.4 hgb 8.2 platelets 206 Sodium 140 potassium 3.3 creatinine 0.74 Total bilirubin 0.2 AST 17 ALT 15 alk phos 136 CRP 13.8 IMAGING: computed tomography scan abdomen and pelvis that had shown interval increase in bladder/pelvis surgical bed soft tissue mass which invades into the rectal wall and now hazy appearance of feces within. No evidence additional of intra- abdominal lymphadenopathy. Left chest wall [id number] distal tip appears to terminate in the soft tissue just anterior to the left subclavian vein. Table distal aorta dilation up to 3.9 cm new trace bilateral pleural effusions. ASSESSMENT: 1. Increase bladder mass that invades into the rectal wall noted on computed tomography scan 2. History of bladder cancer with invading the bowel status post cystectomy wth urostomy and bowel resection 3. History of CVA PLAN: -Further recommendations forthcoming per surgeon -Continue supportive care Physician Computer Systems Auditor note has been reviewed by physician. Signing provider agrees with the documented findings, assessment, and plan of care. Past Medical History Past Medical History: Cancer, COPD, CVA/TIA Additional Past Medical History / Comment(s): bladder CA, ileostomy, "something in the abdomen that they are trying to shrink" History of Any Multi-Drug Resistant Organisms: None Reported Past Surgical History: Bladder Surgery Additional Past Surgical History / Comment(s): ileostomy 06/2020 at [facility] in [facility], fatty tumor removed from rt leg, Past Anesthesia/Blood Transfusion Reactions: No Reported Reaction Past Psychological History: No Psychological Hx Reported Smoking Status: Current every day smoker Past Alcohol Use History: Rare Additional Past Alcohol Use History / Comment(s): smokes 1 PPD, started smoking age 6 or 7 Past Drug Use History: None Reported Additional Drug Use History / Comment(s): CBD gummies - Past Family History Brother(s) Family Medical History: Cancer Sister(s) Family Medical History: Cancer, Deep Vein Thrombosis (DVT) Medications and Allergies Home Medications Medication Instructions Recorded Confirmed Type Divalproex Sodium [Depakote] 125 mg PO BID 12/17/21 05/19/22 History Aspirin [Adult Low Dose Aspirin EC] 81 mg PO DAILY 04/09/22 05/19/22 History Multivitamins, Thera [Multivitamin 1 tab PO DAILY 04/09/22 05/19/22 History (formulary)] Pantoprazole [Protonix] 40 mg PO AC-BRKFST #30 tab 04/11/22 05/19/22 Rx Diphenoxylate HCl/Atropine 2 tab PO QID PRN 05/19/22 05/19/22 History [Lomotil 2.5-0.025 mg Tablet] Allergies Allergy/AdvReac Type Severity Reaction Status Date / Time codeine Allergy Itching Verified 05/19/22 17:17 Surgical - Exam Vital Signs Temp Pulse Resp BP Pulse Ox 99 F 87 18 101/67 96 05/19/22 13:49 05/19/22 13:49 05/19/22 13:49 05/19/22 13:49 05/19/22 13:49 Results - Labs 05/25/22 06:49 05/25/22 06:49 Abnormal Lab Results - Last 24 Hours (Table) 05/24/22 05/24/22 05/25/22 Range/Units 14:07 14:07 06:49 WBC 20.4 H (3.8-10.6) k/uL RBC 2.43 L (3.80-5.40) m/uL Hgb 8.2 L (11.4-16.0) gm/dL Hct 25.2 L (34.0-46.0) % MCV 103.8 H (80.0-100.0) fL RDW 15.9 H (11.5-15.5) % Neutrophils # 17.9 H (1.3-7.7) k/uL Potassium (3.5-5.1) mmol/L Chloride (98-107) mmol/L BUN (7-17) mg/dL Alkaline Phosphatase (38-126) U/L C-Reactive Protein 13.8 H (<1.0) mg/dL Total Protein (6.3-8.2) g/dL Albumin (3.5-5.0) g/dL Procalcitonin 0.13 H (0.02-0.09) ng/mL 05/25/22 Range/Units 06:49 WBC (3.8-10.6) k/uL RBC (3.80-5.40) m/uL Hgb (11.4-16.0) gm/dL Hct (34.0-46.0) % MCV (80.0-100.0) fL RDW (11.5-15.5) % Neutrophils # (1.3-7.7) k/uL Potassium 3.3 L (3.5-5.1) mmol/L Chloride 108 H (98-107) mmol/L BUN 6 L (7-17) mg/dL Alkaline Phosphatase 136 H (38-126) U/L C-Reactive Protein (<1.0) mg/dL Total Protein 5.0 L (6.3-8.2) g/dL Albumin 2.2 L (3.5-5.0) g/dL Procalcitonin (0.02-0.09) ng/mL Microbiology - Last 24 Hours (Table) 05/19/22 16:05 Blood Culture Gram Stain - Preliminary Blood Blood Culture - Preliminary Coagulase Negative Staph 05/19/22 16:20 Blood Culture - Preliminary Blood No Growth after 120 hours Diabetes panel 05/25/22 Range/Units 06:49 Sodium 140 (137-145) mmol/L Potassium 3.3 L (3.5-5.1) mmol/L Chloride 108 H (98-107) mmol/L Carbon Dioxide 24 (22-30) mmol/L BUN 6 L (7-17) mg/dL Creatinine 0.74 (0.52-1.04) mg/dL Glucose 94 (74-99) mg/dL Calcium 8.5 (8.4-10.2) mg/dL AST 17 (14-36) U/L ALT 15 (4-34) U/L Alkaline Phosphatase 136 H (38-126) U/L Total Protein 5.0 L (6.3-8.2) g/dL Albumin 2.2 L (3.5-5.0) g/dL Calcium panel 05/25/22 Range/Units 06:49 Calcium 8.5 (8.4-10.2) mg/dL Albumin 2.2 L (3.5-5.0) g/dL Pituitary panel 05/25/22 Range/Units 06:49 Sodium 140 (137-145) mmol/L Potassium 3.3 L (3.5-5.1) mmol/L Chloride 108 H (98-107) mmol/L Carbon Dioxide 24 (22-30) mmol/L BUN 6 L (7-17) mg/dL Creatinine 0.74 (0.52-1.04) mg/dL Glucose 94 (74-99) mg/dL Calcium 8.5 (8.4-10.2) mg/dL Adrenal panel 05/25/22 Range/Units 06:49 Sodium 140 (137-145) mmol/L Potassium 3.3 L (3.5-5.1) mmol/L Chloride 108 H (98-107) mmol/L Carbon Dioxide 24 (22-30) mmol/L BUN 6 L (7-17) mg/dL Creatinine 0.74 (0.52-1.04) mg/dL Glucose 94 (74-99) mg/dL Calcium 8.5 (8.4-10.2) mg/dL Total Bilirubin 0.2 (0.2-1.3) mg/dL AST 17 (14-36) U/L ALT 15 (4-34) U/L Alkaline Phosphatase 136 H (38-126) U/L Total Protein 5.0 L (6.3-8.2) g/dL Albumin 2.2 L (3.5-5.0) g/dL
[2022-05-25] MEDS: PIPERACILLIN-TAZOBACTAM 3.375 GM in SODIUM CHLORIDE 0.9% 100 ML IVPB SCH ×2 (16:43→23:39)
[2022-05-25] MEDS ORDERED: Potassium Replacement Protocol 1 EACH MISC MISCELLANE PRN (17:09)
--- NOTE | 2022-05-25 17:21 | CDI ---
Documentation Clarification Form Date: 05/25/2022 5:18:30 PM From: Aracelis Ordaz RN, CCDS Admit Date: 05/19/2022 4:43:00 PM Patient Name: Cortney Tovar Visit Number: [id number] Discharge Date: ATTENTION: The Clinical Documentation Specialists (CDI) and [facility] Coding Staff appreciate your assistance in clarifying documentation. Please respond to the clarification below the line at the bottom and electronically sign. The CDI & [facility] Coding staff will review the response and follow-up if needed. Please note: Queries are made part of the Legal Health Record. If you have any questions, please contact the author of this message via ITS. Dr. Noelle Lopez UTI is documented ED assessment H/P, ID consult and subsequent progress notes and patient has a urostomy. Additional clarification regarding the etiology of the UTI is requested. History/Risk Factors: Bladder cancer, COPD, CVA, Current smoker Clinical Indicators: 61-year-old female present with complaints of weakness. Vital signs: 101/67 87 18 99 96% RA 05/19 Urinalysis: Appearance Turbid, urine nitrite Positive, Ur Leukocyte Esterase Small, Urine bacteria Rare 05/22 Urinalysis: Appearance Clear, Ur Leukocyte Esterase negative 05/19 Urine culture: Enterococcus faecalis 05/19 Blood Culture: Coagulase Negative Staph 05/19 Lab results: WBC 25.5 HGB 10.0 HCT 29.7, BUN 23, and Cr 0.89 Treatment: Vancomycin 1,250 MG IVPB Once then Q12 HRS (PTD) 05/24-05/25 .9NS 1,000 IV Bolus x 2 05/19 Zosyn 3.375 GM IVPB Q8 HRS 05/25 Unasyn 3 GM IVPB Q6 HRS 05/21-05/25 Please clarify the etiology of the UTI, if known: [x ] Urostomy/Ileal conduit [ ] UTI not related to urostomy/Ileal conduit [ ] Other condition, please specify [ ] Unable to determine (Template Last Revised: April 2020) MTDD
[2022-05-25] MEDS: POTASSIUM CHLORIDE ER 20 MEQ TAB.ER PO SCH ×2 (17:49→20:22)
[2022-05-25] MEDS: SODIUM CHLORIDE 0.9% 1,000 ML IV SCH (20:23)
[2022-05-25] MEDS: LACTATED RINGERS 1,000 ML IV SCH (20:23)
[2022-05-26] MEDS: LACTATED RINGERS 1,000 ML IV SCH ×3 (05:22→23:19)
[2022-05-26] MEDS: PANTOPRAZOLE 40 MG TABLET PO SCH (07:40)
[2022-05-26] MEDS: PIPERACILLIN-TAZOBACTAM 3.375 GM in SODIUM CHLORIDE 0.9% 100 ML IVPB SCH ×3 (07:41→23:19)
[2022-05-26] MEDS: MIDODRINE 5 MG TAB PO SCH ×3 (07:46→17:31)
[2022-05-26] MEDS: MULTIVITAMINS, THERA 1 EACH TAB PO SCH (10:20)
[2022-05-26] MEDS: ASPIRIN 81 MG PO SCH (10:20)
[2022-05-26] MEDS: DIVALPROEX SPRINKLE 125 MG CAP.SPRINK PO SCH ×2 (10:20→20:03)
[2022-05-26 11:01] LABS: Basophils # (A) 0.08 X 10*3/uL (0.00-0.10); Basophils % (A) 0.3 %; Eosinophils # (A) 0.18 X 10*3/uL (0.04-0.35); Eosinophils % (A) 0.7 %; HCT 25.1 % (37.2-46.3); HGB 7.8 g/dL (12.0-15.0); Immature Grans, Automated 0.8 %; Lymphocytes # (A) 2.46 X 10*3/uL (0.90-5.00); Lymphocytes % (A) 9.5 %; MCH 33.9 pg (27.0-32.0); MCHC 31.1 g/dL (32.0-37.0); MCV 109.1 fL (80.0-97.0); Mean Platelet Volume 10.4 fL (9.5-12.2); Monocytes # (A) 0.79 X 10*3/uL (0.20-1.00); NRBC Per 100 WBC 0 /100 WBCS (0.0-0.0); Neutrophils % (A) 85.7 %; Platelet Count 211 X 10*3/uL (140-440); RDW 16.2 % (11.5-14.5); WBC 25.91 X 10*3/uL (4.50-10.00)
[2022-05-26 11:22] LABS: African American GFR (CKD) 94.4 (60.0-200.0); Anion Gap 11.7 mmol/L (10.00-18.00); BUN/Creat Ratio 8.8 Ratio (12.00-20.00); Blood Urea Nitrogen 6.8 mg/dL (9.0-27.0); Calcium 9.2 mg/dL (8.7-10.3); Carbon Dioxide 23.6 mmol/L (20.0-27.5); Non-African American GFR(CKD) 81.4 (60.0-200.0); Potassium 3.8 mmol/L (3.5-5.5)
[2022-05-26 12:02] VITALS: BMI 24.4
--- NOTE | 2022-05-26 14:50 | P.PN ---
Subjective Progress Note Date: 05/26/22 61-year-old female with a past medical history significant for bladder cancer did have ileostomy COPD CVA TIA the patient has been brought into the hospital by the complaining of the patient becoming significantly weak in the last day or 2 and cannot even assist in transport and the patient did have episode of more vomiting and concerning for possible UTI with the same the patient was brought into the ER on arrival to the ER the patient did have a low- grade fever of 99 F the patient was not hypoxic or need for supplemental oxygen he did have white count of 25,000 which repeat was up to 29,000 creatinine was normal and BUN was mildly elevated liver enzymes are normal patient did have a positive UA blood cultures obtained which are currently pending urine is now showing Enterococcus patient is currently being treated with Rocephin Blood work completed in ED reveals a WBC of 24.6, hemoglobin of 7.8 and platelet count of 195, sodium 137, potassium 3.7, BUN/creatinine of 60/0.72 and blood glucose of 80 05/22/2022 the patient is afebrile patient is breathing comfortably on room air and did mention feeling slightly better no chest pain shortness of breath or cough no abdominal pain and no diarrhea patient was in the hospital with generalized weakness which is likely multif actorial patient did have a lead white count and significant positive UA concerning for symptomatic urinary tract infection likely from enteric pathogen with urine culture now showing Enterococcus. patient to continue with Unasyn while waiting for sensitivity on this Enterococcus with the discharge antibiotic on the basis of final culture and clinical response. patient still have significantly elevated white count will check an ultrasound of the kidney to make sure no evidence of any abscess or obstructive uropathy also advised to change her Ng catheter 05/23/2022 Patient is evaluated today up in the chair. Assisted back to bed, patient is weak. Repeat urinalysis shows improvement. Continues on IV unasyn with ID following closely. Renal ultrasound showing mild bilateral hydronephrosis. No obstructing etiology present on ultrasound. Urology consulted for further review. White count is 23.54 today. Hemoglobin 7.3. Kidney function stable. Blood pressure on the lower side at 82/55. 05/24/2022 Patient evaluated at bedside today sitting up in chair. She does report feeling better than yesterday and no acute complaints. She is receiving IV fluids normal saline at 100 and has been started on midodrine. Blood pressure has improved. Infectious disease following and patient remains on IV unasyn and started on IV vancomycin. Patient did have a positive blood culture showing coagulase negative staph with blood culture taken 15 minutes after reporting as negative. White count is improving down to 22.8 today. Urology consultation recommending no intervention. Patient wants to discharge home. 05/25/2022 Patient evaluated at bedside with present. Patient had CT done outpatient on 05/10 which showing reoccurrence of the surgical bed soft tissue mass with partial obstruction of the large bowel near the rectum. Patients does report that they have not followed up with oncology about this, they missed their monday office appt since she was hospitalized. Repeat abdominal CV was done this admission showing an interval increase in size of the bladder/pelvis surgical bed soft tissue mass which invades the rectal wall and now hazy appearance of feces within. There is no evidence of additional intra- abdominal lymphadenopathy. There is a left chest wall [id number] distal tip appears to terminate in the soft tissues just anterior to the subclavian vein. Further evaluation of the [id number]-v-[id number] recommended before using. There is stable distal aorta fusiform with dilation of 3.9 cm. New trace bilateral pleural effusions. White count down to 20.4 today, hemoglobin 8.2. potassium 3.3. Procalcionin 0.13. Blood pressure up to 114/71 today. 05/26/2022 Patient is evaluated today resting in bed. She reports no abdominal pain. Urostomy intact and draining. Pending Further recommendations from surgery if patient will be candidate for surgical intervention here or will require transfer out based on CT imaging findings. Oncology has also been consulted. White count has increased up to 25.91 today, hemoglobin of 7.8. Electrolytes are essential unremarkable today. Patient remains afebrile, heart rate of 48, blood pressure 105/68, 96% on room air. Review of Systems Constitutional: Denied any fatigue denied any fever. Cardio vascular: denied any chest pain, palpitations Gastrointestinal: denied any nausea, vomiting, diarrhea Pulmonary: Denied any shortness of breath cough Neurologic denied any new focal deficits All inpatient medications were reviewed and appropriate changes in these medications as dictated in the interval history and assessment and plan. PHYSICAL EXAMINATION: GENERAL: The patient is alert and oriented x2, not in any acute distress. Well developed, well nourished. HEENT: Pupils are round and equally reacting to light. EOMI. No scleral icterus. No conjunctival pallor. Normocephalic, atraumatic. No pharyngeal erythema. No thyromegaly. CARDIOVASCULAR: S1 and S2 present. No murmurs, rubs, or gallops. PULMONARY: Chest is clear to auscultation, no wheezing or crackles. ABDOMEN: Soft, nontender, nondistended, normoactive bowel sounds. No palpable organomegaly. Urostomy present RUQ. Debris in drainage bag. MUSCULOSKELETAL: No joint swelling or deformity. EXTREMITIES: No cyanosis, clubbing, or pedal edema. NEUROLOGICAL: Gross neurological examination did not reveal any focal deficits. Apashic. Weak. SKIN: No rashes. Assessment and Plan Assessment Pelvic/bladder surgical bed soft tissue mass that now invades the rectal wall increased in size from prior CT on 05/10/22. Urinary tract infection with sepsis present on admission urine culture showing enterococcus Positive blood culture showing coagulase negative staph likely contamination species however f/u blood culture is pending Luekocytosis Mild bilateral hydronephrosis Hypotension improving with midodrine History of invasive bladder cancer with radical cystectomy and urostomy COPD not in acute exacerbation GERD History of CVA/TIA with residual aphasia Medical debility and weakness GI prophylaxis Plan General surgery and oncology have been consulted for further evaluation and recommendations regarding the soft tissue mass. Continue IV antibiotics ID following Follow blood culture Continue IV fluids Follow up CBC in AM. The impression and plan of care has been dictated by Sanam Chacko, Nurse Practitioner as directed. Dr. Bella MD I have performed a history and physical examination and medical decision making of this patient, discussed the same with the dictator, and agree with the dictators assessment and plan as written, documented as a scribe. Based on total visit time, I have performed more than 50% of this visit. Objective - Vital Signs Vital signs: Vital Signs Temp 98.4 F 05/26/22 07:14 Pulse 54 L 05/26/22 09:17 Resp 16 05/26/22 07:14 BP 98/57 05/26/22 09:17 Pulse Ox 96 05/26/22 07:14 FiO2 21 05/24/22 11:55 Intake & Output 05/25/22 05/26/22 05/26/22 18:59 06:59 18:59 Intake Total 750 1300 Output Total 800 1900 450 Balance -50 -600 -450 Weight 64.5 kg 64.5 kg Intake: Intake, IV Titration 1300 Amount Lactated Ringers 1,000 ml 1200 @ 100 mls/hr IV .Q10H [facility] Rx#:[id number] Piperacillin-Tazobactam 3 100 .375 gm In Sodium Chloride 0.9% 100 ml @ 25 mls/hr IVPB Q8HR [facility] Rx# :[id number] Oral 750 Output: Urine 800 1900 450 Other: Voiding Method Ileal Conduit (Left) Ileal Conduit (Left) Ileal Conduit (Left) # Bowel Movements 1 4 1 - Labs CBC & Chem 7: 05/26/22 08:04 05/26/22 08:04 Labs: Abnormal Lab Results - Last 24 Hours (Table) 05/25/22 05/26/22 05/26/22 Range/Units 06:49 08:04 08:04 WBC 25.91 H (4.50-10.00) X 10*3/uL RBC 2.30 L (4.10-5.20) X 10*6/uL Hgb 7.8 L (12.0-15.0) g/dL Hct 25.1 L (37.2-46.3) % MCV 109.1 H (80.0-97.0) fL MCH 33.9 H (27.0-32.0) pg MCHC 31.1 L (32.0-37.0) g/dL RDW 16.2 H (11.5-14.5) % Immature Gran # 0.20 H (0.00-0.04) X 10*3/uL Neutrophils # 22.20 H (1.80-7.70) X 10*3/uL BUN 6.8 L (9.0-27.0) mg/dL BUN/Creatinine Ratio 8.80 L (12.00-20.00) Ratio Vitamin B12 1487.0 H (200.0-944.0) pg/mL Microbiology - Last 24 Hours (Table) 05/19/22 16:20 Blood Culture - Final Blood No Growth after 144 hours 05/24/22 14:15 Blood Culture - Preliminary Blood No Growth after 24 hours 05/19/22 16:05 Blood Culture Gram Stain - Preliminary Blood Blood Culture - Preliminary Coagulase Negative Staph Assessment and Plan Time with Patient: Less than 30
--- NOTE | 2022-05-26 15:40 | P.PN ---
Subjective Progress Note Date: 05/26/22 Principal diagnosis: Leukocytosis and enterococcus urinary tract infection Patient is a 61-year-old female with a past medical history significant for bladder cancer did have ileostomy COPD CVA TIA the patient has been brought into the hospital by the complaining of the patient becoming significantly weakness, patient noticed to have evidence of UTI with urine showing enterococcus. on today's evaluation that is 05/26/2022, the patient continues to be afebrile, the patient patient is breathing comfortably on room air, the patient denies chest pain shortness of breath or cough, the patient denies having any abdominal pain and no diarrhea, with no blood or mucus in the stool, no new symptoms Objective - Vital Signs Vital signs: Vital Signs Temp 98.4 F 05/26/22 12:31 Pulse 48 L 05/26/22 12:31 Resp 18 05/26/22 12:31 BP 105/68 05/26/22 12:31 Pulse Ox 96 05/26/22 12:31 FiO2 21 05/24/22 11:55 Intake & Output 05/25/22 05/26/22 05/26/22 18:59 06:59 18:59 Intake Total 750 1300 480 Output Total 800 1900 975 Balance -50 -600 -495 Weight 64.5 kg 64.5 kg Intake: Intake, IV Titration 1300 Amount Lactated Ringers 1,000 ml 1200 @ 100 mls/hr IV .Q10H [facility] Rx#:[id number] Piperacillin-Tazobactam 3 100 .375 gm In Sodium Chloride 0.9% 100 ml @ 25 mls/hr IVPB Q8HR [facility] Rx# :[id number] Oral 750 480 Output: Urine 800 1900 975 Other: Voiding Method Ileal Conduit (Left) Ileal Conduit (Left) Ileal Conduit (Left) # Bowel Movements 1 4 1 - Exam GENERAL DESCRIPTION: Middle-age female lying in bed in no distress RESPIRATORY SYSTEM: Unlabored breathing , decreased breath sounds at bases HEART: S1 S2 regular rate and rhythm , ABDOMEN: Soft , no tenderness EXTREMITIES: No edema feet - Labs CBC & Chem 7: 05/26/22 08:04 05/26/22 08:04 Labs: Abnormal Lab Results - Last 24 Hours (Table) 05/25/22 05/26/22 05/26/22 Range/Units 06:49 08:04 08:04 WBC 25.91 H (4.50-10.00) X 10*3/uL RBC 2.30 L (4.10-5.20) X 10*6/uL Hgb 7.8 L (12.0-15.0) g/dL Hct 25.1 L (37.2-46.3) % MCV 109.1 H (80.0-97.0) fL MCH 33.9 H (27.0-32.0) pg MCHC 31.1 L (32.0-37.0) g/dL RDW 16.2 H (11.5-14.5) % Immature Gran # 0.20 H (0.00-0.04) X 10*3/uL Neutrophils # 22.20 H (1.80-7.70) X 10*3/uL BUN 6.8 L (9.0-27.0) mg/dL BUN/Creatinine Ratio 8.80 L (12.00-20.00) Ratio Vitamin B12 1487.0 H (200.0-944.0) pg/mL Microbiology - Last 24 Hours (Table) 05/19/22 16:20 Blood Culture - Final Blood No Growth after 144 hours 05/24/22 14:15 Blood Culture - Preliminary Blood No Growth after 24 hours 05/19/22 16:05 Blood Culture Gram Stain - Preliminary Blood Blood Culture - Preliminary Coagulase Negative Staph Assessment and Plan (1) Leukocytosis Current Visit: Yes Status: Acute Code(s): D72.829 - ELEVATED WHITE BLOOD VIANCA L COUNT, UNSPECIFIED SNOMED Code(s): 861940977 (2) UTI (urinary tract infection) Current Visit: Yes Status: Acute Priority: High Code(s): N39.0 - URINARY TRACT INFECTION, SITE NOT SPECIFIED SNOMED Code(s): 25010776 Plan: 1patient was in the hospital with generalized weakness which is likely multifactorial patient did have a lead white count and significant positive UA concerning for symptomatic urinary tract infection likely from enteric pathogen with urine culture now showing Enterococcus. 2patient US mild bilateral hydronephrosis. Urology has been consulted recommending no intervention 3-patient urine culture did grew enterococcus which is penicillin sensitive blood culture is growing gram-positive cocci in cluster which has been finalized as staph epi possible contaminated repeat blood culture so far negative 4-patient did have a bladder cancer history with a repeat CT obtained on 05/24/2022 concerning for possible extension into the rectal wall Gen. surgery and oncology has been consulted waiting the recommendation patient to continue with the Zosyn and monitor clinical course closely Time with Patient: Less than 30
--- NOTE | 2022-05-26 16:42 | P.PN ---
Subjective Progress Note Date: 05/26/22 Principal diagnosis: Pelvic mass Patient seen this afternoon with her family present at the bedside. Patient denies abdominal pain. Having intermittent loose stools. Denies nausea or vomiting. She is afebrile. Patient's white blood cell count remains elevated. Objective - Vital Signs Vital signs: Vital Signs Temp 98.4 F 05/26/22 12:31 Pulse 48 L 05/26/22 12:31 Resp 18 05/26/22 12:31 BP 105/68 05/26/22 12:31 Pulse Ox 96 05/26/22 12:31 FiO2 21 05/24/22 11:55 Intake & Output 05/25/22 05/26/22 05/26/22 18:59 06:59 18:59 Intake Total 750 1300 480 Output Total 800 1900 975 Balance -50 -600 -495 Weight 64.5 kg 64.5 kg Intake: Intake, IV Titration 1300 Amount Lactated Ringers 1,000 ml 1200 @ 100 mls/hr IV .Q10H [facility] Rx#:[id number] Piperacillin-Tazobactam 3 100 .375 gm In Sodium Chloride 0.9% 100 ml @ 25 mls/hr IVPB Q8HR [facility] Rx# :[id number] Oral 750 480 Output: Urine 800 1900 975 Other: Voiding Method Ileal Conduit (Left) Ileal Conduit (Left) Ileal Conduit (Left) # Bowel Movements 1 4 1 - Exam Abdomen: Soft, nondistended, mild lower abdominal tenderness, ostomy noted - Labs CBC & Chem 7: 05/26/22 08:04 05/26/22 08:04 Labs: Abnormal Lab Results - Last 24 Hours (Table) 05/25/22 05/26/22 05/26/22 Range/Units 06:49 08:04 08:04 WBC 25.91 H (4.50-10.00) X 10*3/uL RBC 2.30 L (4.10-5.20) X 10*6/uL Hgb 7.8 L (12.0-15.0) g/dL Hct 25.1 L (37.2-46.3) % MCV 109.1 H (80.0-97.0) fL MCH 33.9 H (27.0-32.0) pg MCHC 31.1 L (32.0-37.0) g/dL RDW 16.2 H (11.5-14.5) % Immature Gran # 0.20 H (0.00-0.04) X 10*3/uL Neutrophils # 22.20 H (1.80-7.70) X 10*3/uL BUN 6.8 L (9.0-27.0) mg/dL BUN/Creatinine Ratio 8.80 L (12.00-20.00) Ratio Vitamin B12 1487.0 H (200.0-944.0) pg/mL Microbiology - Last 24 Hours (Table) 05/24/22 14:15 Blood Culture - Preliminary Blood No Growth after 48 hours 05/19/22 16:20 Blood Culture - Final Blood No Growth after 144 hours Assessment and Plan (1) Pelvic mass Narrative/Plan: 61-year-old female with what appears to represent recurrent bladder cancer with associated pelvic mass. Patient's CAT scan from this admission and a CAT scan from a month ago or so shows air within the mass. The volume of air along with feculent appearance to the tumor increased at this time. Patient is afebrile and has been afebrile during this hospital stay. Unfortunately leukocytosis persists despite antibiotics. Antibiotic coverage was recently widened after recent CAT scan results. I do not believe the patient is dealing with a significant obstruction currently. We discussed the options of diverting ostomy. I discussed the case and only with the patient and family but also with Dr. Robledo by phone. Overall value of diverting ostomy in this case questionable given the patient's progression despite treatment and comorbidities. We'll discuss further with family. As outpatient oncology had been considering advising hospice care given the recent progression. Current Visit: Yes Status: Acute Code(s): R19.00 - INTRA-ABD AND PELVIC SWELLING, MASS AND LUMP, UNSP SITE SNOMED Code(s): 44575373
--- NOTE | 2022-05-26 22:01 | P.CONS ---
History of Present Illness - Reason for Consult Consult date: 05/26/22 rectal mass Requesting physician: Sanam Chacko - Chief Complaint UTI - History of Present Illness Mrs. Tovar is a very pleasant female patient of Dr. Mix, diagnosed with muscle invasive bladder cancer 05/10. She was evaluated initially at [facility] in [place], felt because of invasion of colon and vagina they would proceed with surgery first. 07/01/20 she underwent anterior exenteration with ileal loop diversion and sigmoid colon resection, pathology revealed [id number] disease. She recovered from surgery well and was treated in [place], adjuvant chemo with 4 cycles of cisplatin/gemzar completed 11/24/2020. She was seen by Dr. Mix 12/08/2020 to establish Oncology care closer to home. 12/21/20 CT CAP was negative for disease, however, right nipple retraction was noted. 01/02/21 brain MRI was negative (done because she was loosing balance). Repeat CT CAP 05/17/21 revealed a new 3.5x3.7x3.7 cm mass in central portion of pelvis, inseparable from small bowel and from colon posteriorly. 06/11/21 PET revealed suspicious uptake in pelvic mass, otherwise negative. 06/03/21 she started keytruda. Treatment f/u CT 08/18/21 revealed progression of pelvic mass and evidence of peritoneal mets. She started PADCEV on 09/09/2021. She developed ischemic stoke on 10/06/21, had thrombolytic therapy, resolution of symptoms other than Werneke's aphasia. Pt recently completed padcev therapy. CT CAP treatment f/u study unfortunately showed disease progression. She is currently admitted for UTI. CT AP showed mass eroding into the rectum and causing partial obstruction. Pt is having diarrhea, denies rectal pain or bleeding. No fevers, appetite is ok, no N,V, abd pain, she is very weak and not walking much. Review of Systems at bedside, pt previous stroke has expressive aphasia Past Medical History Past Medical History: Cancer, COPD, CVA/TIA Additional Past Medical History / Comment(s): bladder CA, ileostomy, "something in the abdomen that they are trying to shrink" History of Any Multi-Drug Resistant Organisms: None Reported Past Surgical History: Bladder Surgery Additional Past Surgical History / Comment(s): ileostomy 06/2020 at [facility] in [facility], fatty tumor removed from rt leg, Past Anesthesia/Blood Transfusion Reactions: No Reported Reaction Past Psychological History: No Psychological Hx Reported Smoking Status: Current every day smoker Past Alcohol Use History: Rare Additional Past Alcohol Use History / Comment(s): smokes 1 PPD, started smoking age 6 or 7 Past Drug Use History: None Reported Additional Drug Use History / Comment(s): CBD gummies - Past Family History Brother(s) Family Medical History: Cancer Sister(s) Family Medical History: Cancer, Deep Vein Thrombosis (DVT) Medications and Allergies Home Medications Medication Instructions Recorded Confirmed Type Divalproex Sodium [Depakote] 125 mg PO BID 12/17/21 05/19/22 History Aspirin [Adult Low Dose Aspirin EC] 81 mg PO DAILY 04/09/22 05/19/22 History Multivitamins, Thera [Multivitamin 1 tab PO DAILY 04/09/22 05/19/22 History (formulary)] Pantoprazole [Protonix] 40 mg PO AC-BRKFST #30 tab 04/11/22 05/19/22 Rx Diphenoxylate HCl/Atropine 2 tab PO QID PRN 05/19/22 05/19/22 History [Lomotil 2.5-0.025 mg Tablet] Allergies Allergy/AdvReac Type Severity Reaction Status Date / Time codeine Allergy Itching Verified 05/19/22 17:17 Physical Exam Vitals: Vital Signs Temp Pulse Resp BP BP Pulse Ox 05/26/22 07:14 98.4 F 52 L 16 88/51 79/49 96 05/26/22 02:13 98.5 F 58 L 16 85/55 93 L 05/25/22 20:00 98.5 F 55 L 16 89/55 99 05/25/22 17:46 57 L 87/49 96 05/25/22 14:00 98.4 F 60 16 89/54 97 05/25/22 12:29 66 114/71 99 Intake and Output 05/25/22 05/26/22 05/26/22 22:59 06:59 14:59 Intake Total 750 1300 Output Total 800 1900 450 Balance -50 -600 -450 Intake: Intake, IV Titration 1300 Amount Lactated Ringers 1,000 ml 1200 @ 100 mls/hr IV .Q10H [facility] Rx#:[id number] Piperacillin-Tazobactam 3 100 .375 gm In Sodium Chloride 0.9% 100 ml @ 25 mls/hr IVPB Q8HR [facility] Rx# :[id number] Oral 750 Output: Urine 800 1900 450 Other: Voiding Method Ileal Conduit (Left) # Bowel Movements 4 Weight 64.5 kg - Constitutional General appearance: average body habitus, cooperative, no acute distress - EENT Eyes: anicteric sclerae, EOMI ENT: hearing grossly normal - Neck Neck: no lymphadenopathy - Respiratory Respiratory: bilateral: CTA - Cardiovascular Rhythm: regular Heart sounds: normal: S1, S2 Abnormal Heart Sounds: no systolic murmur, no diastolic murmur, no rub, no S3 Gallop, no S4 Gallop, no click, no other leg Peripheral Edema: bilateral: None - Gastrointestinal Urostomy General gastrointestinal: no absent bowel sounds, no decreased bowel sounds, no distended, no hepatomegaly, no hyperactive bowel sounds, normal bowel sounds, no organomegaly, no rigid, no scaphoid, soft, no splenomegaly, no tenderness, no umbilical hernia, no ventral hernia - Integumentary Integumentary: pale - Neurologic aphasia - Musculoskeletal Musculoskeletal: generalized weakness - Psychiatric Psychiatric: A&O x's 3, appropriate affect Results CBC & Chem 7: 05/26/22 08:04 05/26/22 08:04 Labs: Abnormal Lab Results - Last 24 Hours (Table) 05/25/22 Range/Units 06:49 Vitamin B12 1487.0 H (200.0-944.0) pg/mL Microbiology - Last 24 Hours (Table) 05/19/22 16:20 Blood Culture - Final Blood No Growth after 144 hours 05/24/22 14:15 Blood Culture - Preliminary Blood No Growth after 24 hours 05/19/22 16:05 Blood Culture Gram Stain - Preliminary Blood Blood Culture - Preliminary Coagulase Negative Staph CT scan - abdomen: report reviewed (CT 05/10 and 05/24) CT scan - chest: report reviewed (CT 05/24) CT scan - pelvis: report reviewed (CT 05/10 and 05/24) Assessment and Plan (1) UTI (urinary tract infection) Current Visit: Yes Status: Acute Priority: High Code(s): N39.0 - URINARY TRACT INFECTION, SITE NOT SPECIFIED SNOMED Code(s): 58449779 (2) Rectal obstruction Current Visit: Yes Status: Acute Priority: High Code(s): K62.4 - STENOSIS OF ANUS AND RECTUM SNOMED Code(s): 557848110 (3) Bladder cancer Current Visit: Yes Status: Chronic Priority: High Code(s): C67.9 - MALIGNANT NEOPLASM OF BLADDER, UNSPECIFIED SNOMED Code(s): 893733697 Plan: UTI -Admitted for the same -On antibiotics -ID following - reports clearer urine Bladder cancer -Patient recently completed a course of chemotherapy with padcev. She had treatment follow-up CT CAP 05/10/22. This report was reviewed with Dr. Mix. Unfortunately, disease has progressed. This was discussed with the patient and her . There is one final line of therapy Dr. Mix can offer her but, this therapy is harder to tolerate and, with patient's history of having little to no response to 3 lines of chemotherapy, the likelihood that this will provide any substantial/significant palliation of symptoms or prolongation of life is low. Dr. Mix was concerned that pt PS is not good enough to tolerate treatment at this time. It was agreed upon by patient and that currently she is in no physical shape to withstand another treatment. Patient and her 's questions were answered to the best of my ability. They would like to get to the patient's current situation and address any further cancer treatment at a later time. -Currently, findings on the CT scan of erosion of tumor into the rectum. Surgery consulted. Patient and are open to discussing options. Pending Surgeon's assessment and recommendations. Dr. Mix and Dr. Mart are going to discuss case -CT AP 05/24 showing a larger size when compared with the CT scan on 05/10. Cannot rule out progression of disease but, with the rather large change in a few weeks, possibly some of it is due to inflammation and maybe from infection. Patient is on antibiotics. Time with Patient: Greater than 30
[2022-05-27] MEDS: MIDODRINE 5 MG TAB PO SCH ×3 (04:15→16:35)
[2022-05-27] MEDS: MULTIVITAMINS, THERA 1 EACH TAB PO SCH (08:11)
[2022-05-27] MEDS: PANTOPRAZOLE 40 MG TABLET PO SCH (08:11)
[2022-05-27] MEDS: PIPERACILLIN-TAZOBACTAM 3.375 GM in SODIUM CHLORIDE 0.9% 100 ML IVPB SCH ×2 (08:11→16:35)
[2022-05-27] MEDS: DIVALPROEX SPRINKLE 125 MG CAP.SPRINK PO SCH ×2 (08:11→21:04)
[2022-05-27] MEDS: ASPIRIN 81 MG PO SCH (08:11)
[2022-05-27] MEDS: LACTATED RINGERS 1,000 ML IV SCH ×2 (08:15→22:27)
[2022-05-27 11:16] LABS: Basophils % (A) 0 %; Eosinophils # (A) 0.1 k/uL (0-0.7); Eosinophils % (A) 1 %; HCT 25.1 % (34.0-46.0); HGB 8.1 gm/dL (11.4-16.0); Lymphocytes # (A) 1.4 k/uL (1.0-4.8); Lymphocytes % (A) 7 %; MCH 33.7 pg (25.0-35.0); MCHC 32.5 g/dL (31.0-37.0); MCV 103.7 fL (80.0-100.0); Macrocytosis Moderate; Mean Platelet Volume 8.3; Monocytes # (A) 0.7 k/uL (0-1.0); Monocytes % (A) 3 %; Neutrophils # (A) 17.6 k/uL (1.3-7.7); Neutrophils % (A) 88 %; Platelet Count 211 k/uL (150-450); RBC 2.42 m/uL (3.80-5.40); RDW 15.9 % (11.5-15.5); WBC 20.1 k/uL (3.8-10.6)
[2022-05-27] MEDS ORDERED: ACETAMINOPHEN TAB 325 MG TAB PO PRN (14:10)
[2022-05-27] MEDS ORDERED: HYDROcodone/APAP 5-325MG 1 EACH TAB PO STA (15:51)
--- NOTE | 2022-05-27 16:42 | P.PN ---
Subjective Progress Note Date: 05/27/22 Principal diagnosis: Pelvic mass Patient doing about the same today. T-max 99.5. White blood cell count slightly improved at 20. Denies abdominal pain at this time. Tolerating small volume of diet. No nausea or vomiting. Urostomy working well. Objective - Vital Signs Vital signs: Vital Signs Temp 97.6 F 05/27/22 11:56 Pulse 61 05/27/22 11:56 Resp 16 05/27/22 11:56 BP 82/51 05/27/22 11:56 Pulse Ox 95 05/27/22 11:56 FiO2 21 05/24/22 11:55 Intake & Output 05/26/22 05/27/22 05/27/22 18:59 06:59 18:59 Intake Total 2240 1420 Output Total 1475 2300 1000 Balance 765 -880 -1000 Weight 64.5 kg 63.5 kg Intake: Intake, IV Titration 1400 1300 Amount Lactated Ringers 1,000 ml 1200 1200 @ 75 mls/hr IV .[id number] [facility] Rx#:[id number] Piperacillin-Tazobactam 3 200 100 .375 gm In Sodium Chloride 0.9% 100 ml @ 25 mls/hr IVPB Q8HR [facility] Rx# :[id number] Oral 840 120 Output: Urine 1475 2300 1000 Other: Voiding Method Ileal Conduit (Left) Ileal Conduit (Left) # Bowel Movements 1 3 1 - Exam Abdomen: Soft, nondistended, mild lower abdominal tenderness and fullness, urostomy functioning - Labs CBC & Chem 7: 05/27/22 10:19 05/26/22 08:04 Labs: Abnormal Lab Results - Last 24 Hours (Table) 05/25/22 05/27/22 Range/Units 06:49 10:19 WBC 20.1 H (3.8-10.6) k/uL RBC 2.42 L (3.80-5.40) m/uL Hgb 8.1 L (11.4-16.0) gm/dL Hct 25.1 L (34.0-46.0) % MCV 103.7 H (80.0-100.0) fL RDW 15.9 H (11.5-15.5) % Neutrophils # 17.6 H (1.3-7.7) k/uL RBC Folate 1,342 H (280 - 791) ng/mL Microbiology - Last 24 Hours (Table) 05/24/22 14:15 Blood Culture - Preliminary Blood No Growth after 72 hours 05/19/22 16:05 Blood Culture Gram Stain - Final Blood Blood Culture - Final Coagulase Negative Staph Assessment and Plan (1) Pelvic mass Narrative/Plan: 61-year-old female with locally advanced recurrent bladder cancer. Patient with evidence of necrosis and infection within the tumor mass in the pelvis. Patient has poor performance status and is not felt to be a candidate for aggressive pelvic exenteration per oncology. Patient and family are not interested in further chemotherapy for this malignancy at this time. Dr. Robledo thought hospice should be strongly considered. Diverting colostomy is an option still to help alleviate some of the infection within the pelvic tumor however long- term improvement in her overall symptoms felt to be unlikely. Even with diverting ostomy the infection within the pelvic tumor likely will persist and may likely progress. After discussion patient and state they are not interested in further surgery. He is requesting that she go home and is agreeable to me with hospice at this time. Continue antibiotics for now. We'll follow with you. Current Visit: Yes Status: Acute Code(s): R19.00 - INTRA-ABD AND PELVIC SWELLING, MASS AND LUMP, UNSP SITE SNOMED Code(s): 42004624
--- NOTE | 2022-05-27 17:08 | P.PN ---
Subjective Progress Note Date: 05/27/22 Principal diagnosis: UTI/ hx bladder cancer At today's visit patient is resting comfortably in bed. at bedside. She denies pain. Patient is tolerating oral intake. Denies nausea vomiting. Objective - Vital Signs Vital signs: Vital Signs Temp 97.6 F 05/27/22 11:56 Pulse 61 05/27/22 11:56 Resp 16 05/27/22 11:56 BP 82/51 05/27/22 11:56 Pulse Ox 95 05/27/22 11:56 FiO2 21 05/24/22 11:55 Intake & Output 05/26/22 05/27/22 05/27/22 18:59 06:59 18:59 Intake Total 2240 1420 Output Total 1475 2300 1000 Balance 765 -880 -1000 Weight 64.5 kg 63.5 kg Intake: Intake, IV Titration 1400 1300 Amount Lactated Ringers 1,000 ml 1200 1200 @ 75 mls/hr IV .[id number] [facility] Rx#:[id number] Piperacillin-Tazobactam 3 200 100 .375 gm In Sodium Chloride 0.9% 100 ml @ 25 mls/hr IVPB Q8HR [facility] Rx# :[id number] Oral 840 120 Output: Urine 1475 2300 1000 Other: Voiding Method Ileal Conduit (Left) Ileal Conduit (Left) # Bowel Movements 1 3 1 - Constitutional General appearance: Present: average body habitus, no acute distress - EENT Eyes: Present: anicteric sclerae, EOMI ENT: Present: hearing grossly normal - Respiratory Details: Breathing is even and unlabored - Cardiovascular Details: Skin warm and dry - Integumentary Integumentary: Present: pale - Neurologic Neurologic Comment(s): Expressive aphasia, baseline - Musculoskeletal Musculoskeletal: Present: strength equal bilaterally - Psychiatric Psychiatric: Present: A&O x's 3, appropriate affect, intact judgment & insight - Labs CBC & Chem 7: 05/27/22 10:19 05/26/22 08:04 Labs: Abnormal Lab Results - Last 24 Hours (Table) 05/25/22 05/27/22 Range/Units 06:49 10:19 WBC 20.1 H (3.8-10.6) k/uL RBC 2.42 L (3.80-5.40) m/uL Hgb 8.1 L (11.4-16.0) gm/dL Hct 25.1 L (34.0-46.0) % MCV 103.7 H (80.0-100.0) fL RDW 15.9 H (11.5-15.5) % Neutrophils # 17.6 H (1.3-7.7) k/uL RBC Folate 1,342 H (280 - 791) ng/mL Microbiology - Last 24 Hours (Table) 05/24/22 14:15 Blood Culture - Preliminary Blood No Growth after 72 hours 05/19/22 16:05 Blood Culture Gram Stain - Final Blood Blood Culture - Final Coagulase Negative Staph Assessment and Plan (1) UTI (urinary tract infection) Current Visit: Yes Status: Acute Priority: High Code(s): N39.0 - URINARY TRACT INFECTION, SITE NOT SPECIFIED SNOMED Code(s): 73593796 (2) Bladder cancer Current Visit: Yes Status: Chronic Priority: High Code(s): C67.9 - MALIGNANT NEOPLASM OF BLADDER, UNSPECIFIED SNOMED Code(s): 741886123 Plan: UTI: -Admitted for the same -On antibiotics -ID following Bladder cancer: -Patient recently completed a course of chemotherapy with padcev. She had treatment follow-up CT CAP 05/10/22. This report was reviewed with Dr. Mix. Unfortunately, disease has progressed. This was discussed with the patient and her . There is one final line of therapy Dr. Mix can offer her but, this therapy is harder to tolerate and, with patient's history of having little to no response to 3 lines of chemotherapy, the likelihood that this will provide any substantial/significant palliation of symptoms or prolongation of life is low. Dr. Mix was concerned that pt PS is not good enough to tolerate treatment at this time. It was agreed upon by patient and that currently she is in no physical shape to withstand another treatment. Patient and state that they do not want to pursue any further chemotherapy at this time. Patient and her 's questions were answered to the best of my ability. -CT AP 05/24 showing a larger size when compared with the CT scan on 05/10. Cannot rule out progression of disease but, with the rather large change in a few weeks, possibly some of it is due to inflammation and maybe from infection. Patient is on antibiotics. Findings also revealed erosion of tumor into the rectum causing partial obstruction. Surgery consulted. Dr. Elizabeth De Luna spoke with Dr. Mart today in regards to surgical intervention. It was discussed that since patient is not electing to pursue further systemic treatment as discussed above, and that they surgery itself is rather invasive, the benefits of surgery do not outweigh risks involved. This was discussed with both patient and , and they were agreeable, and stated they wanted to go home and didn't want any further treatment. Hospice has been consulted attests: I have performed H&P and developed impression plan of care for patient, discussed with dictator. I agree with dictated note, documented as a scribe
--- NOTE | 2022-05-27 18:13 | P.PN ---
Subjective Progress Note Date: 05/27/22 Principal diagnosis: Leukocytosis and enterococcus urinary tract infection Patient is a 61-year-old female with a past medical history significant for bladder cancer did have ileostomy COPD CVA TIA the patient has been brought into the hospital by the complaining of the patient becoming significantly weakness, patient noticed to have evidence of UTI with urine showing enterococcus. on today's evaluation that is 05/27/2022, the patient remains to be afebrile, the patient patient is breathing comfortably on room air, the patient denies chest pain shortness of breath or cough, the patient denies having any abdominal pain and no diarrhea, no new symptoms feeling better Objective - Vital Signs Vital signs: Vital Signs Temp 97.6 F 05/27/22 11:56 Pulse 61 05/27/22 11:56 Resp 16 05/27/22 11:56 BP 82/51 05/27/22 11:56 Pulse Ox 95 05/27/22 11:56 FiO2 21 05/24/22 11:55 Intake & Output 05/26/22 05/27/22 05/27/22 18:59 06:59 18:59 Intake Total 2240 1420 Output Total 1475 2300 Balance 765 -880 Weight 64.5 kg 63.5 kg Intake: Intake, IV Titration 1400 1300 Amount Lactated Ringers 1,000 ml 1200 1200 @ 100 mls/hr IV .Q10H [facility] Rx#:[id number] Piperacillin-Tazobactam 3 200 100 .375 gm In Sodium Chloride 0.9% 100 ml @ 25 mls/hr IVPB Q8HR [facility] Rx# :[id number] Oral 840 120 Output: Urine 1475 2300 Other: Voiding Method Ileal Conduit (Left) Ileal Conduit (Left) # Bowel Movements 1 3 1 - Exam GENERAL DESCRIPTION: Middle-age female lying in bed in no distress RESPIRATORY SYSTEM: Unlabored breathing , decreased breath sounds at bases HEART: S1 S2 regular rate and rhythm , ABDOMEN: Soft , no tenderness EXTREMITIES: No edema feet - Labs CBC & Chem 7: 05/27/22 10:19 05/26/22 08:04 Labs: Abnormal Lab Results - Last 24 Hours (Table) 05/25/22 05/27/22 Range/Units 06:49 10:19 WBC 20.1 H (3.8-10.6) k/uL RBC 2.42 L (3.80-5.40) m/uL Hgb 8.1 L (11.4-16.0) gm/dL Hct 25.1 L (34.0-46.0) % MCV 103.7 H (80.0-100.0) fL RDW 15.9 H (11.5-15.5) % Neutrophils # 17.6 H (1.3-7.7) k/uL RBC Folate 1,342 H (280 - 791) ng/mL Microbiology - Last 24 Hours (Table) 05/19/22 16:05 Blood Culture Gram Stain - Final Blood Blood Culture - Final Coagulase Negative Staph 05/24/22 14:15 Blood Culture - Preliminary Blood No Growth after 48 hours Assessment and Plan (1) Leukocytosis Current Visit: Yes Status: Acute Code(s): D72.829 - ELEVATED WHITE BLOOD CELL COUNT, UNSPECIFIED SNOMED Code(s): 181944678 (2) UTI (urinary tract infection) Current Visit: Yes Status: Acute Priority: High Code(s): N39.0 - URINARY TRACT INFECTION, SITE NOT SPECIFIED SNOMED Code(s): 96860660 Plan: 1patient was in the hospital with generalized weakness which is likely multifactorial patient did have a lead white count and significant positive UA concerning for symptomatic urinary tract infection likely from enteric pathogen with urine culture now showing Enterococcus. 2patient US mild bilateral hydronephrosis. Urology has been consulted recommending no intervention 3-patient urine culture did grew enterococcus which is penicillin sensitive blood culture is growing gram-positive cocci in cluster which has been finalized as staph epi possible contaminated repeat blood culture so far negative 4-patient did have a bladder cancer history with a repeat CT obtained on 05/24/2022 concerning for possible extension into the rectal wall Gen. surgery and oncology has been consulted , patient considered to be high risk for any surgical intervention at this point and possible hospice has been offered to the family, patient to continue with the Zosyn however discontinue if the patient is switched to hospice Time with Patient: Less than 30
[2022-05-28] MEDS: PIPERACILLIN-TAZOBACTAM 3.375 GM in SODIUM CHLORIDE 0.9% 100 ML IVPB SCH ×2 (00:33→07:44)
[2022-05-28] MEDS: ASPIRIN 81 MG PO SCH (07:44)
[2022-05-28] MEDS: DIVALPROEX SPRINKLE 125 MG CAP.SPRINK PO SCH (07:44)
[2022-05-28] MEDS: MIDODRINE 5 MG TAB PO SCH (07:44)
[2022-05-28] MEDS: PANTOPRAZOLE 40 MG TABLET PO SCH (07:44)
[2022-05-28] MEDS: MULTIVITAMINS, THERA 1 EACH TAB PO SCH (07:45)
[2022-05-28 07:56] VITALS: BP 85/53; PULSE 67; RESP 16; TEMP 99
--- NOTE | 2022-05-28 07:56 | PN ---
PROGRESS NOTE DATE OF SERVICE: 05/27/2022 SUBJECTIVE: This is a 61-year-old woman who was admitted with apparently bladder soft tissue mass, possible bladder malignancy also had a urostomy. The patient was also being evaluated by surgery and considering possible surgery versus tertiary care referral. No chest pain, no palpitation. OBJECTIVE: VITAL SIGNS: Pulse is 80/61, blood pressure 82/51, respirations 16. HEENT: Conjunctivae normal. CARDIOVASCULAR: S1, S2. RESPIRATIONS: n ABDOMEN: Soft. NERVOUS SYSTEM: No focal deficits. LABORATORY DATA: Hemoglobin 8.1, procalcitonin 0.13. ASSESSMENT: 1. Pelvic bladder, soft tissue mass, possibly bladder cancer with mets. 2. Urinary tract infection with sepsis present on admission with enterococci. 3. Mild bilateral hydronephrosis. 4. Hypotension. 5. Invasive bladder cancer with radical cystectomy, urostomy. 6. Chronic obstructive pulmonary disease. 7. History of gastroesophageal reflux disease. 8. Multiple medical issues. RECOMMENDATIONS AND DISCUSSION: Recommended to continue current management, continue symptomatic treatment. Otherwise, closely follow with surgery and most recent blood cultures are negative. I would recommend follow closely, continue with IV fluids. The patient is receiving midodrine. I would also recommend 8 a.m. cortisol level also. Prognosis is extremely guarded because of multiple complex medical issues. MMODL / IJN: [id number] / JERICA
--- NOTE | 2022-05-28 09:10 | P.PN ---
Subjective Progress Note Date: 05/28/22 Principal diagnosis: Pelvic mass Patient doing fairly well today. Denies abdominal pain. She is afebrile. Apparently hospice brought supplies to the home yesterday. They are a nticipating discharge today. Objective - Vital Signs Vital signs: Vital Signs Temp 99.0 F 05/28/22 07:24 Pulse 67 05/28/22 07:24 Resp 16 05/28/22 07:24 BP 85/53 05/28/22 07:24 Pulse Ox 93 L 05/28/22 07:24 FiO2 21 05/24/22 11:55 Intake & Output 05/27/22 05/28/22 05/28/22 18:59 06:59 18:59 Intake Total 900 Output Total 1300 1400 Balance -1300 -500 Weight 63 kg Intake: Intake, IV Titration 900 Amount Lactated Ringers 1,000 ml 900 @ 75 mls/hr IV .[id number] BREN Rx#:[id number] Output: Urine 1300 1400 Other: Voiding Method Ileal Conduit (Left) Ileal Conduit (Left) # Bowel Movements 1 1 - Exam Abdomen: Soft, nontender, nondistended - Labs CBC & Chem 7: 05/27/22 10:19 05/26/22 08:04 Labs: Abnormal Lab Results - Last 24 Hours (Table) 05/27/22 Range/Units 10:19 WBC 20.1 H (3.8-10.6) k/uL RBC 2.42 L (3.80-5.40) m/uL Hgb 8.1 L (11.4-16.0) gm/dL Hct 25.1 L (34.0-46.0) % MCV 103.7 H (80.0-100.0) fL RDW 15.9 H (11.5-15.5) % Neutrophils # 17.6 H (1.3-7.7) k/uL Microbiology - Last 24 Hours (Table) 05/24/22 14:15 Blood Culture - Preliminary Blood No Growth after 72 hours 05/19/22 16:05 Blood Culture Gram Stain - Final Blood Blood Culture - Final Coagulase Negative Staph Assessment and Plan (1) Pelvic mass Narrative/Plan: Patient with advanced recurrent bladder cancer with infected necrotic mass and pelvis. Plans for hospice underway. We'll sign off. Please call if needed. Current Visit: Yes Status: Acute Code(s): R19.00 - INTRA-ABD AND PELVIC SWELLING, MASS AND LUMP, UNSP SITE SNOMED Code(s): 44723204
[2022-05-28 13:22] LABS: Basophils # (A) 0.09 X 10*3/uL (0.00-0.10); Basophils % (A) 0.3 %; Eosinophils # (A) 0.15 X 10*3/uL (0.04-0.35); Eosinophils % (A) 0.5 %; HCT 24.2 % (37.2-46.3); HGB 7.6 g/dL (12.0-15.0); Immature Grans, Automated 1.3 %; Lymphocytes # (A) 2.25 X 10*3/uL (0.90-5.00); Lymphocytes % (A) 7.9 %; MCH 34.1 pg (27.0-32.0); MCHC 31.4 g/dL (32.0-37.0); MCV 108.5 fL (80.0-97.0); Mean Platelet Volume 10.5 fL (9.5-12.2); Monocytes # (A) 1.08 X 10*3/uL (0.20-1.00); Monocytes % (A) 3.8 %; NRBC Per 100 WBC 0 /100 WBCS (0.0-0.0); Neutrophils # (A) 24.63 X 10*3/uL (1.80-7.70); Neutrophils % (A) 86.2 %; Platelet Count 216 X 10*3/uL (140-440); RBC 2.23 X 10*6/uL (4.10-5.20); RDW 16.4 % (11.5-14.5); WBC 28.57 X 10*3/uL (4.50-10.00)
[2022-05-28 15:31] LABS: Anion Gap 13.3 mmol/L (10.00-18.00); BUN/Creat Ratio 11.7 Ratio (12.00-20.00); Blood Urea Nitrogen 10.3 mg/dL (9.0-27.0); Calcium 9.4 mg/dL (8.7-10.3); Carbon Dioxide 25.4 mmol/L (20.0-27.5); Non-African American GFR(CKD) 69.9 (60.0-200.0); Potassium 3.5 mmol/L (3.5-5.5)
--- NOTE | 2022-05-30 23:16 | P.DS ---
Providers Date of admission: 05/19/22 16:43 Expected date of discharge: 05/28/22 Attending physician: Abel Bright Consults: 05/21/22 08:41 Consult Physician Routine Consulting Provider: Noelle Lopez Consult Reason/Comments: Leukocytosis/ UTI Do you want consulting provider notified?: Yes 05/23/22 13:34 Consult Physician Routine Consulting Provider: Rob Hughes Consult Reason/Comments: mild bilateral hydronephrosis Do you want consulting provider notified?: Yes 05/25/22 11:38 Consult Physician Routine Consulting Provider: Xavier Warren Consult Reason/Comments: Mass invasion into rectall wall Do you want consulting provider notified?: Yes 05/25/22 12:04 Consult Physician Routine Consulting Provider: [employer] Consult Reason/Comments: reocurrance of cancer, rectall wall breakdown Do you want consulting provider notified?: Yes Primary care physician: Stated None Hospital Course: Final diagnosis Pelvic bladder, soft tissue mass, possibly bladder cancer with metastases Urinary tract infection with sepsis, present on admission with enterococci Mild bilateral hydronephrosis Hypotension Invasive bladder cancer with radical cystectomy, urostomy Chronic obstructive pulmonary disease history of gastroesophageal reflux disease No code Discharge disposition Patient is being discharged in a stable condition with guarded prognosis to home with hospice with visiting nurses. Patient will follow-up with visiting nurses provider in the outpatient setting upon discharge. Total time taken is greater than 35 minutes. Hospital course This is a 61-year-old female who was recently admitted with urinary tract infection and being closely monitored. Patient does have history of bladder cancer status post urostomy with concerns of hydronephrosis and also a mass with malignancy be closely monitored. Patient was being evaluated by oncology along with general surgery with concerns of disease progression and family had discussed and will like to go home with hospice and no further surgical intervention. Please refer to other consultation notes for further HPI. Currently no reports of chest pain, shortness of breath, or palpitations. Patient is afebrile. No reports of nausea or vomiting and patient is tolerating diet. Patient will be discharged home with visiting nurses hospice today. Physical exam: Gen: This is a 61-year-old female who is awake, alert and oriented 3, thin built, elderly appearing HEENT: Head is atraumatic, normocephalic. Pupils equal, round. Sclerae is anicteric. NECK: Supple. No JVD. No lymphadenopathy. No thyromegaly. LUNGS: Clear to auscultation. No wheezes or rhonchi. No intercostal retractions. HEART: Regular rate and rhythm. No murmur. ABDOMEN: Soft. Bowel sounds are present. No masses. No tenderness. EXTREMITIES: No pedal edema. No calf tenderness. NEUROLOGICAL: Patient is awake, alert and oriented x3. Cranial nerves 2 through 12 are grossly intact. Please refer to medication reconciliation sheet for a list of medications. The impression and plan of care has been dictated by Kimberly Duran Nurse Practitioner as directed. Dr. Deangelo MD I have performed a history and examination and MDM of this patient, discussed the same with the dictator, and agree with the dictator's assessment and plan as written ,documented as a scribe. Based on total visit time, I have performed more than 50% of the visit. Patient Condition at Discharge: Poor Plan - Discharge Summary Discharge Rx Participant: No New Discharge Prescriptions: New Midodrine [ProAmatine] 10 mg PO AC-TID tab Acetaminophen Tab [Tylenol] 650 mg PO Q6HR PRN tab PRN Reason: Fever And/ Or Pain Continue Multivitamins, Thera [Multivitamin (formulary)] 1 tab PO DAILY Pantoprazole [Protonix] 40 mg PO AC-BRKFST #30 tab Divalproex Sodium [Depakote] 125 mg PO BID Aspirin [Adult Low Dose Aspirin EC] 81 mg PO DAILY Diphenoxylate HCl/Atropine [Lomotil 2.5-0.025 mg Tablet] 2 tab PO QID PRN PRN Reason: Diarrhea Discharge Medication List Divalproex Sodium [Depakote] 125 mg PO BID 12/17/21 [History] Aspirin [Adult Low Dose Aspirin EC] 81 mg PO DAILY 04/09/22 [History] Multivitamins, Thera [Multivitamin (formulary)] 1 tab PO DAILY 04/09/22 [History] Pantoprazole [Protonix] 40 mg PO AC-BRKFST #30 tab 04/11/22 [Rx] Diphenoxylate HCl/Atropine [Lomotil 2.5-0.025 mg Tablet] 2 tab PO QID PRN 05/19/22 [History] Acetaminophen Tab [Tylenol] 650 mg PO Q6HR PRN tab 05/28/22 [Rx] Midodrine [ProAmatine] 10 mg PO AC-TID tab 05/28/22 [Rx] Follow up Appointment(s)/Referral(s): None,Stated [Primary Care Provider] - 1-2 days [facility] Visiting Nurse, [NON-STAFF] - 1 Week Activity/Diet/Wound Care/Special Instructions: Patient is going home with hospice to follow with hospice and comfort care order s Discharge Disposition: HOME WITH HOSPICE
== END 2022-05-28 11:39 | disposition hospice, home (50) | DRG 698 ==
LOC: EC 13:41 → 5NMEDONC 16:43
PROVIDERS: ADMIT Hospitalist; ATTEND Hospitalist
DX: T83.518A Infection and inflammatory reaction due to other urinary catheter, initial encounter (principal); A41.81 Sepsis due to Enterococcus; N39.0 Urinary tract infection, site not specified; C79.9 Secondary malignant neoplasm of unspecified site; N13.6 Pyonephrosis; C67.9 Malignant neoplasm of bladder, unspecified; E86.0 Dehydration; E87.6 Hypokalemia; F17.210 Nicotine dependence, cigarettes, uncomplicated; I69.320 Aphasia following cerebral infarction; Z66 Do not resuscitate; Z51.5 Encounter for palliative care; K21.9 Gastro-esophageal reflux disease without esophagitis; I95.9 Hypotension, unspecified; Z92.21 Personal history of antineoplastic chemotherapy; K62.4 Stenosis of anus and rectum; Z88.5 Allergy status to narcotic agent; R53.81 Other malaise; Z80.9 Family history of malignant neoplasm, unspecified; Z79.82 Long term (current) use of aspirin; Z79.899 Other long term (current) drug therapy; Z93.0 Tracheostomy status; Z90.6 Acquired absence of other parts of urinary tract; Z93.6 Other artificial openings of urinary tract status
CPT/HCPCS: 36415; 71046; 74177; 76770; 80048; 80053; 81001; 81003; 82533; 82607; 82747; 83605; 83735; 84145; 84484; 85025; 85610; 85730; 86140; 87040; 87077; 87086; 87186; 93005; 94760; 96361; 96374; 99285